=== PATIENT | female | born 1980 | race Caucasian/White ===

== ENCOUNTER → 2020-08-25 08:16 | Outpatient (BNVA) | payer MEDICARE, MEDICAID, SELFPAY | PROVIDERS: PCP Nurse Practitioner Family; Visit Provider Dietitian, Registered | DX: Z76.89 Persons encountering health services in other specified circumstances (principal) ==

== ENCOUNTER → 2020-09-22 13:43 | Outpatient (BNVA) | payer MEDICARE, MEDICAID, SELFPAY | PROVIDERS: PCP Nurse Practitioner Family; Visit Provider Dietitian, Registered | DX: Z76.89 Persons encountering health services in other specified circumstances (principal) ==

== ENCOUNTER → 2020-09-29 08:38 | Outpatient (BNVA) | payer MEDICARE, MEDICAID, SELFPAY | PROVIDERS: PCP Nurse Practitioner Family; Referring Provider Nurse Practitioner Family; Visit Provider Dietitian, Registered | DX: Z76.89 Persons encountering health services in other specified circumstances (principal) ==

== ENCOUNTER → 2020-12-24 10:35 | Outpatient (BNVA) | payer MEDICARE, MEDICAID, SELFPAY | PROVIDERS: PCP Nurse Practitioner Family; Visit Provider Surgery | DX: E66.9 Obesity, unspecified (principal); Z68.30 Body mass index [BMI] 30.0-30.9, adult; K91.2 Postsurgical malabsorption, not elsewhere classified; Z90.3 Acquired absence of stomach [part of] | CPT/HCPCS: 99212 ==

== ENCOUNTER → 2021-01-21 09:59 | Outpatient (BNVA) | payer MEDICARE, MEDICAID, SELFPAY | PROVIDERS: PCP Nurse Practitioner Family; Visit Provider Dietitian, Registered ==

== ENCOUNTER 2021-02-22 10:00 | Outpatient (REF) | payer MEDICARE, MEDICAID, SELFPAY ==
[2021-02-22 11:23] LABS: MANUAL DIFF FLAG NO
[2021-02-22 11:33] LABS: Basophils Percent Auto 0.3 % (0-2); Eosinophils Absolute Auto 0.2 X10*3/uL (0.0-0.4); Eosinophils Percent Auto 1.6 % (0-4); Hematocrit 33.3 % (37-47); Imm Gran Abs Auto 0.04 X10*3/uL (0.00-0.03); Imm Gran Pct Auto 0.4 % (0.0-0.4); Lymphocytes Absolute Auto 2.2 X10*3/uL (1.2-4.9); Lymphocytes Percent Auto 23.1 % (20-40); Mean Corpuscular Hemoglobin 28.6 pg (27.0-33.0); Mean Corpuscular Volume 86.7 fL (80-98); Mean Platelet Volume 9.4 fL (9.4-12.3); Monocytes Absolute Auto 0.4 X10*3/uL (0.1-1.2); Monocytes Percent Auto 4.3 % (2-11); Neutrophils Absolute Auto 6.7 X10*3/uL (2.0-8.3); Neutrophils Percent Auto 70.3 % (45-73); Platelet Count 243 X10*3/uL (160-400); Red Blood Count 3.84 X10*6/uL (4.20-5.50); Red Cell Distribution Width 12.7 % (11.0-16.0); White Blood Count 9.6 X10*3/uL (4.8-10.8)
[2021-02-22 12:16] LABS: Alanine Aminotransferase 9 U/L (0-31); Alkaline Phosphatase 72 U/L (39-117); Anion Gap 15 (12-20); Aspartate Amino Transferase 10 U/L (5-31); Bilirubin Total 0.6 mg/dL (0.0-1.0); Blood Urea Nitrogen 36 mg/dL (9-16); Calcium 8.8 mg/dL (8.4-10.2); Carbon Dioxide 22 mmol/L (22-29); Chloride 110 mmol/L (96-108); Cholesterol 185 mg/dL; Estimated Glomerular Filt Rate 32; Glucose Fasting 107 mg/dL (60-99); HDL Cholesterol 56 mg/dL; Iron 57 mcg/dL (30-160); LDL Cholesterol Calculated 109 mg/dl; Percent Iron Saturation 23 % (15-50); Sodium 142 mmol/L (135-145); Total Iron Binding Capacity 244 mcg/dL (228-428); Total Protein 7.1 g/dL (6.5-8.0); Triglycerides 100 mg/dL; Unsaturated Iron Binding 187 ug/dL
[2021-02-22 12:19] LABS: Thyroid Stimulating Hormone 0.53 uIU/mL (0.32-4.0); Vitamin D 25-OH Total 19.2 ng/mL (>30)
[2021-02-22 12:21] LABS: Vitamin B12 383 pg/mL (200-900)
[2021-02-23 12:56] LABS: PTHI 210 pg/mL (14-64)
[2021-02-25 13:22] LABS: Vitamin B1 9 nmol/L (8-30)
[2021-02-25 16:12] LABS: Zinc 54 mcg/dL (60-130)
[2021-02-26 19:26] LABS: Vitamin A 69 mcg/dL (38-98)
== END 2021-02-22 10:01 | disposition home or self-care (01) ==
LOC: HO.LAB 10:00
PROVIDERS: PCP Nurse Practitioner Family; Visit Provider Surgery
DX: Z01.818 Encounter for other preprocedural examination (principal); K91.2 Postsurgical malabsorption, not elsewhere classified; E11.42 Type 2 diabetes mellitus with diabetic polyneuropathy; E11.43 Type 2 diabetes mellitus with diabetic autonomic (poly)neuropathy; K31.84 Gastroparesis; E55.9 Vitamin D deficiency, unspecified; Z68.32 Body mass index [BMI] 32.0-32.9, adult; Z90.3 Acquired absence of stomach [part of]; Z88.1 Allergy status to other antibiotic agents; Z88.8 Allergy status to other drugs, medicaments and biological substances; Z79.899 Other long term (current) drug therapy
CPT/HCPCS: 36415; 80053; 80061; 82306; 82607; 83540; 83970; 84425; 84443; 84590; 84630; 85025; 99212

== ENCOUNTER → 2021-04-05 10:38 | Outpatient (BNVA) | payer MEDICARE, MEDICAID, SELFPAY | PROVIDERS: PCP Nurse Practitioner Family; Visit Provider Surgery | DX: E66.9 Obesity, unspecified (principal); Z68.31 Body mass index [BMI] 31.0-31.9, adult | CPT/HCPCS: 99212 ==

== ENCOUNTER 2021-04-12 06:39 | Day surgery (SDC) | payer MEDICARE, MEDICAID, SELFPAY ==
--- NOTE | 2021-04-11 08:40 | P.CONAN_ITS ---
Documented by User: Maryam Paulino 04/11/21 08:49 HPI - Anesthesia Eval Consult details Narrative: 41yo F for Upper Endoscopy Chronic opioids s/p gastric sleeve 12/2019 (per renal 2020, baseline creat 2.3) PMFSH Active Problems Active Problems: All Active Problems (Updated 04/05/21 @ 11:56 by Sheba Ruiz MD) Obesity (Acute) BMI 31.0-31.9,adult (Acute) GERD (gastroesophageal reflux disease) (Acute) Zinc deficiency (Acute) Vitamin D deficiency (Acute) BMI 32.0-32.9,adult (Acute) Intestinal malabsorption following gastrectomy (Acute) Obesity (Acute) History of sleeve gastrectomy (Acute) BMI 30.0-30.9,adult (Acute) Past Medical History Medical History Anemia Arthritis Bilateral cataracts Chronic pain CKD (chronic kidney disease) Degenerative joint disease of low back Diabetic polyneuropathy Fibromyalgia Gastroparesis HTN (hypertension) Hyperlipidemia Hypothyroidism IBS (irritable bowel syndrome) Intestinal malabsorption following gastrectomy Migraine headache Nephritis Renal insufficiency Trigeminal neuralgia Type 2 diabetes mellitus Family History Family History Father No problems noted. Mother COPD (chronic obstructive pulmonary disease) Heart disease Maternal Grandmother Heart disease Sister No problems noted. Surgical History Surgical History History of eye surgery History of intestinal surgery History of laparoscopic cholecystectomy History of sleeve gastrectomy History of vascular surgery Social History Social History Alcohol intake: never Patient Tobacco Use Status: Never used Tobacco Advance Directives: No Advance Directives Information Provided: Yes Meds Allergies Allergy/AdvReac Type Severity Reaction Status Date / Time amoxicillin [AMOXICILLIN] Allergy Unknown RASH Unverified 04/05/21 11:50 rivaroxaban [From XARELTO] Allergy Unknown RASH Unverified 04/05/21 11:50 Amoxicillin Allergy Unknown rash Uncoded 04/05/21 11:50 Xarelto Allergy Unknown rash Uncoded 04/05/21 11:50 Home Medications Medication Instructions Recorded Confirmed Last Taken Type blood sugar diagnostic #10 ea 12/24/20 04/05/21 Unknown History blood-glucose meter #1 ea 12/24/20 04/05/21 Unknown History carvedilol 6.25 mg tablet 6.25 mg PO BID 12/24/20 04/05/21 Unknown History cyclobenzaprine 10 mg tablet 10 mg PO BEDTIME 12/24/20 04/05/21 Unknown History dulaglutide 1.5 mg/0.5 mL 3 mg SUBCUT QWEEK 12/24/20 04/05/21 Unknown History subcutaneous pen injector ergocalciferol (vitamin D2) 1,250 50,000 unit PO QWEEK cap 12/24/20 04/05/21 Unknown History mcg (50,000 unit) capsule gabapentin 800 mg tablet 2,400 mg PO BEDTIME 12/24/20 04/05/21 Unknown History lancets 28 gauge #100 ea 12/24/20 04/05/21 Unknown History levothyroxine 125 mcg tablet 125 mcg PO DAILY 12/24/20 04/05/21 Unknown History morphine 30 mg tablet,extended 30 mg PO TID 12/24/20 04/05/21 Unknown History release oxycodone 15 mg tablet 15 mg PO TID 12/24/20 04/05/21 Unknown History pantoprazole 40 mg tablet,delayed 40 mg PO BID tab 12/24/20 04/05/21 Unknown History release sucralfate 1 gram tablet 1 g PO BEDTIME 12/24/20 04/05/21 Unknown History suvorexant 10 mg tablet 10 mg PO .qhs tab 12/24/20 04/05/21 Unknown History Exam Exam Date and Time: April 11, 2021 0840 Pertinent Lab Results Pertinent Lab Results: Laboratory Tests 02/22/21 02/22/21 10:55 10:55 WBC 9.6 Hgb 11.0 L Hct 33.3 L Plt Count 243 Sodium 142 Potassium 5.0 Chloride 110 H Carbon Dioxide 22 BUN 36 H Creatinine 1.76 H Assessment and Plan Assessment Anesthesia Assessment: Chart Reviewed Documented by User: Cas Vila 04/12/21 07:15 [facility] Past Medical History Medical History Anemia Arthritis Bilateral cataracts Chronic pain CKD (chronic kidney disease) Degenerative joint disease of low back Diabetic polyneuropathy Fibromyalgia Gastroparesis HTN (hypertension) Hyperlipidemia Hypothyroidism IBS (irritable bowel syndrome) Intestinal malabsorption following gastrectomy Migraine headache Nephritis Renal insufficiency Trigeminal neuralgia Type 2 diabetes mellitus Family History Family History Father No problems noted. Mother COPD (chronic obstructive pulmonary disease) Heart disease Maternal Grandmother Heart disease Sister No problems noted. Surgical History Surgical History History of eye surgery History of intestinal surgery History of laparoscopic cholecystectomy History of sleeve gastrectomy History of vascular surgery Social History Social History Alcohol intake: never Patient Tobacco Use Status: Never used Tobacco Advance Directives: No Advance Directives Information Provided: Yes Meds Allergies Allergy/AdvReac Type Severity Reaction Status Date / Time amoxicillin [AMOXICILLIN] Allergy Unknown RASH Unverified 04/05/21 11:50 rivaroxaban [From XARELTO] Allergy Unknown RASH Unverified 04/05/21 11:50 Amoxicillin Allergy Unknown rash Uncoded 04/05/21 11:50 Xarelto Allergy Unknown rash Uncoded 04/05/21 11:50 Home Medications Medication Instructions Recorded Confirmed Last Taken Type blood sugar diagnostic #10 ea 12/24/20 04/05/21 Unknown History blood-glucose meter #1 ea 12/24/20 04/05/21 Unknown History carvedilol 6.25 mg tablet 6.25 mg PO BID 12/24/20 04/05/21 Unknown History cyclobenzaprine 10 mg tablet 10 mg PO BEDTIME 12/24/20 04/05/21 Unknown History dulaglutide 1.5 mg/0.5 mL 3 mg SUBCUT QWEEK 12/24/20 04/05/21 Unknown History subcutaneous pen injector ergocalciferol (vitamin D2) 1,250 50,000 unit PO QWEEK cap 12/24/20 04/05/21 Unknown History mcg (50,000 unit) capsule gabapentin 800 mg tablet 2,400 mg PO BEDTIME 12/24/20 04/05/21 Unknown History lancets 28 gauge #100 ea 12/24/20 04/05/21 Unknown History levothyroxine 125 mcg tablet 125 mcg PO DAILY 12/24/20 04/05/21 Unknown History morphine 30 mg tablet,extended 30 mg PO TID 12/24/20 04/05/21 Unknown History release oxycodone 15 mg tablet 15 mg PO TID 12/24/20 04/05/21 Unknown History pantoprazole 40 mg tablet,delayed 40 mg PO BID tab 12/24/20 04/05/21 Unknown History release sucralfate 1 gram tablet 1 g PO BEDTIME 12/24/20 04/05/21 Unknown History suvorexant 10 mg tablet 10 mg PO .qhs tab 12/24/20 04/05/21 Unknown History Exam Airway Mallampati Class: II TM Dist: >3cm Neck ROM: Full Loose/Missing/Broken Teeth: Yes (Poor dentition many missing upper and lower) Heart: [id number] Lungs: cta b/l Assessment and Plan Assessment Anesthesia Assessment: Anesthesia Plan Discussed, PAT Visit and Chart Reviewed Final Anesthetic Review NPO: Yes ASA Class: III Final Preanesthetic Review: No Changes in Pt Med Stat, Meds/Allgs Chart Reviewed, Consent Obtained/Reviewed and Anes Risks/Benef Reviewed Patient Risk: Low Procedure Risk: Low Assessment/Block/Sedation in SS: Assess/Block/Sedation-SS Anesthetic Plan Anesthetic Plan: MAC: and Agree w/ Assess. and Plan Disposition: Standard PACU
[2021-04-12 07:15] VITALS: BMI 31.8
[2021-04-12 07:16] VITALS: BP 169/92; PULSE 100; RESP 16; TEMP 36.3; O2SAT 99
[2021-04-12 07:22] LABS: UPreg QC Valid YES; Urine Pregnancy NEGATIVE (NEGATIVE)
[2021-04-12] MEDS: Lactated Ringers 1,000 ML 50 ML IVCONT (07:29)
[2021-04-12 07:32] LABS: Glucose, Whole Blood 84 mg/dL (60-115)
--- NOTE | 2021-04-12 07:40 | MHC.SHP ---
Pre-Procedural Eval Section B Chief Complaint: GERD Allergies: Allergies Allergy/AdvReac Type Severity Reaction Status Date / Time amoxicillin [AMOXICILLIN] Allergy Unknown RASH Verified 04/12/21 07:21 rivaroxaban [From XARELTO] Allergy Unknown RASH Verified 04/12/21 07:21 Amoxicillin Allergy Unknown rash Uncoded 04/05/21 11:50 Xarelto Allergy Unknown rash Uncoded 04/05/21 11:50 Plan I have reviewed the history and physical and performed a pertinent physical examination on my patient. No changes have occurred unless specified.
[2021-04-12 07:48] LABS: COVID-19 Test Negative (Negative)
--- NOTE | 2021-04-12 07:55 | PC.NURSE ---
Patient arrived at [facility] with black fit bit watch and silver butterfly bracelet. Labeled cup offered but patient declined. Jewelry placed in clear belongings bag with the rest of her belongings.
[2021-04-12 08:06] VITALS: BP 132/79; PULSE 96; RESP 12; TEMP 36.4; O2SAT 100
--- NOTE | 2021-04-12 08:17 | P.BOP_ITS ---
Brief Operative Note Date of Service: 04/12/21 Pre-op diagnosis: Poor weight loss after sleeve gastrectomy, severe gastroesophageal reflux disease Post-op diagnosis: other (Gastroparesis, bile reflux, antral gastritis normal appearance of the gastric sleeve without abnormality) Procedure: Esophagogastroduodenoscopy, antral biopsy x2 Implants: None Surgeon: Sheba Ruiz MD Anesthesia: MAC Was an Supplier Quality Specialist used for this Procedure?: No Estimated blood loss (mL): 0 Pathology: other (Antral biopsy x2) Condition: stable Disposition: PACU
[2021-04-12 08:22] VITALS: BP 144/89; PULSE 103; RESP 18; TEMP 36.4; O2SAT 100
--- NOTE | 2021-04-12 19:46 | OP_ITS ---
SURGEON: Sheba Ruiz MD PREOPERATIVE DIAGNOSIS: Poor weight loss after gastric sleeve and severe gastroesophageal reflux disease. POSTOPERATIVE DIAGNOSIS: Gastroparesis, bile reflux, and antral gastritis. PROCEDURE PERFORMED: Esophagogastroduodenoscopy and antral biopsy x2. ESTIMATED BLOOD LOSS: COMPLICATIONS: None. ANESTHESIA: Total intravenous anesthesia with propofol given by the nurse speech language therapist. ASSISTANTS: None. SPECIMENS: Antral biopsy x2. DESCRIPTION OF PROCEDURE: The patient was brought into the operating room on a stretcher and placed in the left lateral decubitus position. A safety time-out was performed. A bite block was placed between the teeth. Total intravenous anesthesia was administered using propofol by the nurse speech language therapist. Once the patient was adequately sedated, the gastroscope was placed into posterior oropharynx, passed down the esophagus, evaluating the esophageal mucosa. The esophageal mucosa was normal. GE junction was located at 36 cm from the incisors. There was no evidence of hiatal hernia. Gastroscope was passed into the gastric pouch. The gastric pouch was normal in size for its age. There was no evidence of torsion or stenosis or ballooning of the antrum. The gastric sleeve was the same size all the way down and was [id number] for its age. There was a significant amount of undigested food that we encountered almost immediately once entering the stomach, which showed the patient had gastroparesis likely related to her diabetes. There was bile reflux in the distal stomach, and there was some erythema and granularity of the antrum which were biopsied x2. The rest of the sleeve appeared to be normal. The gastroscope was passed to the pylorus region through the pylorus down to the third portion of duodenum, all of which was normal. All of these portions of the upper endoscopy were documented using photo documentation. There were no complications. The gastroscope was retracted back into the stomach. Stomach was desufflated and the gastroscope was removed without difficulty. The patient tolerated the procedure well and was sent to recovery room in stable condition. FINDINGS: A GE junction located at 36 cm from the incisors. There was no evidence of hiatal hernia. There was antral gastritis, which was biopsied x2. There was also bile reflux located in the antrum. There was a significant amount of undigested food within the stomach. Sheba Ruiz MD /MODL / [id number]
== END 2021-04-12 09:13 | disposition home or self-care (01) ==
PROVIDERS: Nurse Practitioner; PCP Nurse Practitioner Family; Visit Provider Surgery
PROC: 0DJ08ZZ Inspection of Upper Intestinal Tract, Via Natural or Artificial Opening Endoscopic (ICD-10-PCS; CPT 43235; principal; 2021-04-12 07:30)
DX: K21.9 Gastro-esophageal reflux disease without esophagitis (principal); K29.50 Unspecified chronic gastritis without bleeding; K31.84 Gastroparesis; E11.22 Type 2 diabetes mellitus with diabetic chronic kidney disease; E11.42 Type 2 diabetes mellitus with diabetic polyneuropathy; I12.9 Hypertensive chronic kidney disease with stage 1 through stage 4 chronic kidney disease, or unspecified chronic kidney disease; N18.9 Chronic kidney disease, unspecified; Z20.822 Contact with and (suspected) exposure to COVID-19; Z98.84 Bariatric surgery status; Z79.899 Other long term (current) drug therapy; Z90.49 Acquired absence of other specified parts of digestive tract; Z88.0 Allergy status to penicillin; Z88.8 Allergy status to other drugs, medicaments and biological substances
CPT/HCPCS: 43239; 36415; 81025; 82947; 87635; 88305; 88342; J1200

== ENCOUNTER → 2021-05-03 15:33 | Outpatient (BNVA) | payer MEDICARE, MEDICAID, SELFPAY | PROVIDERS: PCP Nurse Practitioner Family; Visit Provider Surgery | DX: E11.65 Type 2 diabetes mellitus with hyperglycemia (principal); E11.43 Type 2 diabetes mellitus with diabetic autonomic (poly)neuropathy; K31.84 Gastroparesis; E11.22 Type 2 diabetes mellitus with diabetic chronic kidney disease; E11.42 Type 2 diabetes mellitus with diabetic polyneuropathy; I12.9 Hypertensive chronic kidney disease with stage 1 through stage 4 chronic kidney disease, or unspecified chronic kidney disease; N18.9 Chronic kidney disease, unspecified; E78.5 Hyperlipidemia, unspecified; K21.9 Gastro-esophageal reflux disease without esophagitis; G50.0 Trigeminal neuralgia; K90.9 Intestinal malabsorption, unspecified; Z68.33 Body mass index [BMI] 33.0-33.9, adult; Z90.3 Acquired absence of stomach [part of] | CPT/HCPCS: 99212 ==

== ENCOUNTER → 2021-06-16 14:32 | Outpatient (BNVA) | payer MEDICARE, MEDICAID, SELFPAY | PROVIDERS: PCP Nurse Practitioner Family; Visit Provider Surgery | DX: E66.9 Obesity, unspecified (principal); Z68.32 Body mass index [BMI] 32.0-32.9, adult | CPT/HCPCS: 99212 ==

== ENCOUNTER → 2021-07-22 10:58 | Outpatient (BNVA) | payer MEDICARE, MEDICAID, SELFPAY | PROVIDERS: PCP Nurse Practitioner Family; Visit Provider Surgery | DX: E66.9 Obesity, unspecified (principal); Z68.32 Body mass index [BMI] 32.0-32.9, adult | CPT/HCPCS: 99212 ==

== ENCOUNTER → 2021-08-12 09:38 | Outpatient (BNVA) | payer MEDICARE, MEDICAID, SELFPAY | PROVIDERS: PCP Nurse Practitioner Family; Visit Provider Surgery | DX: E66.9 Obesity, unspecified (principal); Z68.32 Body mass index [BMI] 32.0-32.9, adult | CPT/HCPCS: 99212 ==

== ENCOUNTER → 2021-08-31 10:05 | Outpatient (BNVA) | payer MEDICARE, MEDICAID, SELFPAY | PROVIDERS: PCP Nurse Practitioner Family; Visit Provider Physician Assistant Surgical | DX: E66.9 Obesity, unspecified (principal); E21.1 Secondary hyperparathyroidism, not elsewhere classified | CPT/HCPCS: 99212 ==

== ENCOUNTER 2023-07-10 09:26 | Outpatient (REF) | payer MEDICARE, MEDICAID, SELFPAY ==
[2023-07-10 10:58] LABS: MANUAL DIFF FLAG NO
[2023-07-10 11:02] LABS: Basophils Percent Auto 0.5 % (0-2); Eosinophils Absolute Auto 0.2 X10*3/uL (0.0-0.4); Eosinophils Percent Auto 2.3 % (0-4); Hemoglobin 9.6 g/dl (12.0-16.0); Imm Gran Abs Auto 0.03 X10*3/uL (0.00-0.03); Imm Gran Pct Auto 0.4 % (0.0-0.4); Lymphocytes Absolute Auto 2.3 X10*3/uL (1.2-4.9); Lymphocytes Percent Auto 27.7 % (20-40); Mean Corpuscular Volume 84.5 fL (80.0-98.0); Mean Platelet Volume 9.7 fL (9.4-12.3); Monocytes Absolute Auto 0.5 X10*3/uL (0.1-1.2); Monocytes Percent Auto 6.5 % (2-11); Neutrophils Absolute Auto 5.3 x10*3/uL (2.0-8.3); Neutrophils Percent Auto 62.6 % (45-73); Platelet Count 230 X10*3/uL (160-400); Red Blood Count 3.55 X10*6/uL (4.20-5.50); Red Cell Distribution Width 13.1 % (11.0-16.0); White Blood Count 8.4 X10*3/uL (4.8-10.8)
[2023-07-10 11:34] LABS: Albumin Level 3.5 g/dL (3.5-5.0); Anion Gap 12 (12-20); Blood Urea Nitrogen 29 mg/dL (9-16); Calcium 9.4 mg/dL (8.4-10.2); Carbon Dioxide 25 mmol/L (22-29); Chloride 110 mmol/L (96-108); Estimated Glomerular Filt Rate 22; Phosphorus 3.7 mg/dL (2.7-4.5); Potassium 4.9 mmol/L (3.3-5.1); Sodium 142 mmol/L (135-145)
[2023-07-10 13:50] LABS: Appearance Urine Turbid; Color Urine Yellow; Glucose Urine UA Negative (Negative); Leukocyte Esterase Urine Large (3+) (Negative); Nitrite Urine Negative (Negative); PH 5.5 (5.0-9.0); Specific Gravity - Urine 1.015 (1.005-1.025); UMIC TRIGGER UACC YES; Urine Blood Moderate (2+) (Negative); Urine Ketones Negative (Negative); Urine Protein 300 (3+) mg/dL (Neg-Trace)
[2023-07-10 14:05] LABS: Bacteria Urine 4+ (None Seen); Squamous Epithelial Cell Urine 0-2 /HPF (0-2); UACC Culture Trigger YES; WBC Clumps Urine Present; WBC Urine >50 /HPF (0-5)
[2023-07-10 14:34] LABS: Creatinine Urine 81.91 mg/dL
[2023-07-10 16:17] LABS: Microalbum/Creatinine Ratio Ur 2441.7 ug/mg cr (<30); Microalbumin Urine > 2000.0 mg/L
[2023-07-10 21:57] LABS: Protein/Creatinine Ratio, Ur 3.54 (<0.2); Total Protein Urine Random 290 mg/dL (<12)
[2023-07-11 15:23] LABS: PTHI 95 pg/mL (16-77)
== END 2023-07-10 09:27 | disposition home or self-care (01) ==
LOC: HO.10HDL 09:26
PROVIDERS: Visit Provider Internal Medicine Nephrology
DX: E11.29 Type 2 diabetes mellitus with other diabetic kidney complication (principal); E11.22 Type 2 diabetes mellitus with diabetic chronic kidney disease; N25.0 Renal osteodystrophy; E11.21 Type 2 diabetes mellitus with diabetic nephropathy; N18.32 Chronic kidney disease, stage 3b; R82.90 Unspecified abnormal findings in urine
CPT/HCPCS: 36415; 80051; 81001; 82040; 82043; 82306; 82310; 82565; 82570; 83735; 83970; 84100; 84156; 84520; 85025; 87086; 87088; 87186

== ENCOUNTER 2023-08-31 00:11 | Emergency (ER) | payer MEDICARE, MEDICAID, SELFPAY ==
--- NOTE | ~2023-08-31 | XR_ITS ---
EXAMINATION: XR RIBS, RIGHT CLINICAL INFORMATION: Fall COMPARISON: None available. TECHNIQUE: 3 views of the right ribs were obtained. FINDINGS: No displaced rib fracture is seen. The lungs are clear with no focal consolidation. No evidence of pneumothorax, pulmonary edema, or pleural effusions. The cardiomediastinal contour is unremarkable. XR/XR ribs RT min 3V w CXR1V IMPRESSION: No acute findings identified.
--- NOTE | ~2023-08-31 | XR_ITS ---
EXAMINATION: XR KNEE, RIGHT CLINICAL INFORMATION: Fall COMPARISON: None available. TECHNIQUE: Four views of the right knee. FINDINGS: Osseous alignment is anatomic. There is mild tricompartmental joint space narrowing and osteophytosis. No acute fracture is seen. No significant knee effusion. XR/XR knee RT 3V IMPRESSION: No acute findings. Mild degenerative changes.
[2023-08-31 00:25] VITALS: BP 158/90; PULSE 92; RESP 16; TEMP 36.4; O2SAT 100; BMI 27.5
--- NOTE | 2023-08-31 00:32 | ED_ITS ---
HPI - Fall General Chief Complaint: Fall Stated Complaint: fall Time Seen by Provider: 08/31/23 00:32 Source: patient Mode of arrival: ambulatory Limitations: no limitations History of Present Illness HPI Narrative: Patient with chronic pain on morphine apparently was walking in the parking lot of [employer] around 16:00 tripped on uneven ground and fell forward complaining of pain in the right ribs hit the head to the ground with small bruise over the left eyebrow no loss of consciousness no seizures patient did her chores and came now for evaluate complaining of pain in the right ribs right knee no shortness of breath Related Data Home Medications Medication Instructions Recorded Confirmed blood sugar diagnostic #10 ea 12/24/20 08/31/21 blood-glucose meter #1 ea 12/24/20 08/31/21 cyclobenzaprine 10 mg tablet 10 mg PO BEDTIME 12/24/20 08/31/21 dulaglutide 1.5 mg/0.5 mL 3 mg subcut QWEEK 12/24/20 08/31/21 subcutaneous pen injector ergocalciferol (vitamin D2) 1,250 50,000 unit PO QWEEK 12/24/20 08/31/21 mcg (50,000 unit) capsule gabapentin 800 mg tablet 2,400 mg PO BEDTIME 12/24/20 08/31/21 lancets 28 gauge #100 ea 12/24/20 08/31/21 levothyroxine 125 mcg tablet 125 mcg PO DAILY 12/24/20 08/31/21 morphine 30 mg tablet,extended 30 mg PO TID chronic pain 12/24/20 08/31/21 release oxycodone 15 mg tablet 15 mg PO TID 12/24/20 08/31/21 labetalol 200 mg tablet 200 mg PO BID 06/16/21 08/31/21 calcium citrate 1,000 mg tablet 1,000 mg PO DAILY 07/22/21 08/31/21 [id number] 45 mg-folic 1 cap PO DAILY 07/22/21 08/31/21 acid 800 mcg-vit K 120 mcg capsule (Bariatric Multivitamins) pantoprazole 40 mg tablet,delayed 40 mg PO DAILY 07/22/21 08/31/21 release Allergies Allergy/AdvReac Type Severity Reaction Status Date / Time amoxicillin [AMOXICILLIN] Allergy Unknown RASH Verified 08/31/21 10:13 rivaroxaban [From XARELTO] Allergy Unknown RASH Verified 08/31/21 10:13 Amoxicillin Allergy Unknown rash Uncoded 08/31/21 10:13 Xarelto Allergy Unknown rash Uncoded 08/31/21 10:13 Review of Systems Review of Systems: Yes all other systems are reviewed and are negative [facility] Past Medical History Medical History CKD (chronic kidney disease) Intestinal malabsorption following gastrectomy Gastroparesis IBS (irritable bowel syndrome) Bilateral cataracts Arthritis Degenerative joint disease of low back Fibromyalgia Nephritis Migraine headache Trigeminal neuralgia HTN (hypertension) Chronic pain Anemia Hyperlipidemia Diabetic polyneuropathy Renal insufficiency Type 2 diabetes mellitus Hypothyroidism Surgical History History of intestinal surgery History of vascular surgery History of laparoscopic cholecystectomy History of eye surgery History of sleeve gastrectomy Family History Family History Father No problems noted. Mother COPD (chronic obstructive pulmonary disease) Heart disease Maternal Grandmother Heart disease Sister No problems noted. Social History Social History Alcohol intake: never Patient Tobacco Use Status: Never used Tobacco Smoked in Last 30 Days: No Use of substances other than those prescribed or required for medical reasons: No Advance Directives: No Advance Directives Information Provided: No Patient : No Physical Exam Vital Signs: Vital Signs: Last Vital Signs Temp 97.6 F 08/31/23 00:25 Pulse 92 08/31/23 00:25 Resp 16 08/31/23 00:25 BP 158/90 H 08/31/23 00:25 Pulse Ox 100 08/31/23 00:25 O2 Del Method Room Air 08/31/23 00:25 BMI result Body Mass Index 27.5 Appearance: Alert. Oriented X3. No acute distress. Eyes: PERRLA, HEENT: Pharynx normal. Oral Mucosa moist is small ecchymosis left forehead Neck: Normal inspection. Neck supple. No midline tenderness CVS: Normal heart rate and rhythm. Pulses normal. Respiratory: No respiratory distress. Equal air entry bilateral, no wheezing/rales/rhonchi slight tenderness right mid axillary area without any crepitation or bruise Abdomen: Soft and nontender. Bowel sounds are present, no mass palpable, no CVA tenderness Skin: Skin warm and dry. Normal skin color. Normal skin turgor. Extremities: No lower extremity edema. No calf tenderness slight bruise on the right kneecap good range of movement Neuro: Oriented X 3. No motor deficit. No sensory deficit.No cerebellar signs , cranial nerves II-XII intact Medical Decision Making Medical Decision Making MDM Narrative: Patient clinically with status post minor fall with no loss of consciousness unlikely significant intracranial injury no need for CT scan of the head. Also has slight tenderness right ribs without any crepitation focal tenderness likely muscular pain will do the x-ray of the ribs and the right knee 0100 x-ray negative for fracture discharge patient home for rib contusion and right knee contusion with minor head injury Differential Diagnosis Differential Diagnoses: The differential diagnosis associated with the presentation includes Rib contusion/rib fracture/knee fracture/head injury Discharge Plan Discharge Clinical Impression: Minor closed head injury Patient Disposition: Home, Self-Care Instructions: Head Injury (ED), Rib Contusion (ED) Additional Instructions: Care and cautions as advised Apply ice pack Tylenol/Motrin for pain Continue your pain medication Prescriptions: No Action oxycodone 15 mg tablet 15 mg PO TID morphine 30 mg tablet extended release 30 mg PO TID gabapentin 800 mg tablet 2,400 mg PO BEDTIME cyclobenzaprine 10 mg tablet 10 mg PO BEDTIME levothyroxine 125 mcg tablet 125 mcg PO DAILY Trulicity 1.5 mg/0.5 mL pen injector 3 mg subcut QWEEK (DME) lancets 28 gauge misc See Rx Instructions topical DAILY Qty: 100 Rx Instructions: As directed (DME) blood-glucose meter Kit See Rx Instructions .ROUTE DIRECTED Qty: 1 Rx Instructions: As directed (DME) FreeStyle Lite Strips Strip See Rx Instructions Not Applicable .MEDSUPPLY Qty: 10 Rx Instructions: As directed ergocalciferol (vitamin D2) 1,250 mcg (50,000 unit) capsule 50,000 unit PO QWEEK pantoprazole 40 mg tablet,delayed release (DR/EC) 40 mg PO DAILY labetalol 200 mg tablet 200 mg PO BID Bariatric Multivitamins 45 mg iron- 800 mcg-120 mcg capsule 1 cap PO DAILY calcium citrate 1,000 mg tablet 1,000 mg PO DAILY
--- OUTSIDE RECORDS SUMMARY | 2023-08-31 00:35 | XMS_ITS | Continuity of Care Document ---
Author Name Unknown Organization [facility] ter Address [address] [place] [id number]- Care Team Providers Care Proration Clerk Name Role Phone Sathish RIVERA, Emma Primary Care Physician ( [phone] Encounter [facility] Date(s): 12/23/21 - 12/23/[address] [id number] Discharge Disposition: A-D/C Home Attending Physician: Troy Christianson DDS, MD Admitting Physician: Troy Christianson DDS, MD Referring Physician: Troy Christianson DDS, MD Allergies, Adverse Reactions, Alerts Substance Reaction Severity Status Toradol Active Amoxil rash Active Tape tegaderm-rash Active Xarelto rash Active Medications biotin 1000 mcg oral tablet 1 tablet = 1,000 mcg, By Mouth, Daily, # 30 tablet, 0 Refills, Maintenance, 12/19/18 20:17:12 EST, Tablet Start Date: 12/19/18 Status: Ordered chlorhexidine topical 0.12% liquid 15 mL = 0.018 Gm, Swish and Spit, 3 times a day after meals and bedtime, # 420 mL, 1 Refills, Maintenance, 12/23/21 9:25:00 EST, Oral Rinse, [id number], Partial fill upon patient request if the prescription is for a schedule II opioid drug., 1... Start Date: 12/23/21 Stop Date: 01/06/22 Status: Ordered clindamycin 300 mg oral capsule 1 capsule = 300 mg, By Mouth, Every 6 hours, for 5 days, # 20 capsule, 0 Refills, Acute 12/28/21 9:25:00 EST, 12/23/21 9:25:00 EST, Capsule, [id number], Partial fill upon patient request if the prescription is for a schedule II opioid drug., 1... Start Date: 12/23/21 Stop Date: 12/28/21 Status: Ordered cyclobenzaprine 10 mg oral tablet TAKE 1 TABLET BY MOUTH DAILY AT BEDTIME Start Date: 12/19/18 Status: Ordered Depo-Provera = 300 mg, Intramuscular, every 3 months, 0 Refills, Maintenance, 05/07/13 15:08:35 EDT Start Date: 05/07/13 Status: Ordered folic acid 1 mg oral tablet 1 mg, 1, tablet, By Mouth, Daily at bedtime, Refills 0, Maintenance, 12/12/21 9:12:00 EST, Partial fill upon patient request if the prescription is for a schedule II opioid drug. Start Date: 12/12/21 Status: Ordered gabapentin 800 mg oral tablet 3 tablet = 2,400 mg, By Mouth, Daily at bedtime, 0 Refills, Maintenance, 05/07/13 15:07:46 EDT Start Date: 05/07/13 Status: Ordered labetalol 200 mg oral tablet 1 tablet = 200 mg, By Mouth, 2 times a day, 0 Refills, Maintenance, 12/12/21 9:11:00 EST, Partial fill upon patient request if the prescription is for a schedule II opioid drug. Start Date: 12/12/21 Status: Ordered levothyroxine 112 mcg (0.112 mg) oral capsule 1 capsule = 112 mcg, By Mouth, Daily, 0 Refills, Maintenance, 12/12/21 9:12:00 EST, Partial fill upon patient request if the prescription is for a schedule II opioid drug. Start Date: 12/12/21 Status: Ordered MS Contin Tablet 30 mg, By Mouth, Every 8 hours, Refills 0, Tot. Refills 0, Maintenance, 12/12/21 9:13:00 EST, Partial fill upon patient request if the prescription is for a schedule II opioid drug. Start Date: 12/12/21 Status: Ordered Narcan 4 mg/0.1 mL nasal spray See Instructions, never needed to use med, 0 Refills, Maintenance, 12/19/18 18:31:08 EST Start Date: 12/19/18 Status: Ordered Orthotics See Instructions, # 1 pair, Refills 3, Tot. Refills 3, Maintenance, diabetic shoes with custom inserts, 01/13/19 12:33:16 EDT, Compound Start Date: 01/13/19 Status: Ordered oxyCODONE 15 mg oral tablet TK 1 T PO TID Start Date: 12/19/18 Status: Ordered OxyCODONE IR Tablet 5 mg, Tablet, By Mouth, Every 4 hours, in PACU ONLY, if patient can tolerate PO, PRN for Pain , Mild, Routine, 12/23/21 9:38:00 EST Start Date: 12/23/21 Stop Date: 12/23/21 Status: Discontinued pantoprazole 40 mg oral enteric coated tablet 1 tablet = 40 mg, By Mouth, Daily at bedtime, 0 Refills, Maintenance, 05/07/13 15:02:57 EDT Start Date: 05/07/13 Status: Ordered Trulicity Pen = 4.5 mg, Subcutaneous Injection, Every 7 days, sundays, 0 Refills, Maintenance, 04/05/19 12:24:23 EDT Start Date: 04/05/19 Status: Ordered Tylenol Extra Strength 500 mg oral tablet 2 tablet = 1,000 mg, By Mouth, 2 times a day, PRN as needed for pain, # 500 tablet, 0 Refills, Maintenance, 12/19/18 20:16:05 EST, Tablet Start Date: 12/19/18 Status: Ordered Vitamin B12 500 mcg/mL injectable solution See Instructions, 0 Refills, Maintenance, 12/12/21 9:16:00 EST, Partial fill upon patient request if the prescription is for a schedule II opioid drug. Start Date: 12/12/21 Status: Ordered Vitamin D2 50,000 intl units (1.25 mg) oral capsule See Instructions, 1 capsule By Mouth Daily, 0 Refills, Maintenance, 12/12/21 9:15:00 EST, Partial fill upon patient request if the prescription is for a schedule II opioid drug. Start Date: 12/12/21 Status: Ordered ZyrTEC 10 mg oral tablet 1 tablet = 10 mg, By Mouth, Daily at bedtime, 0 Refills, Maintenance, 12/12/21 9:14:00 EST, Partialfill upon patient request if the prescription is for a schedule II opioid drug. Start Date: 12/12/21 Status: Ordered Problem List Condition Effective Dates Status Health Status Inform ant Diabetes mellitus - adult onset(Confirmed) Active Hyperlipidemia(Confirmed) Active Obese class I(Confirmed) Active Palpitations(Confirmed) Active Peripheral neuropathy(Confirmed) Active Vital Signs Most recent to oldest [Reference Range]: 1 2 3 Height 162.56 cm (12/23/21 6:27 AM) 162.56 cm (12/12/21 9:47 AM) Weight 91.8 kg (12/23/21:27 AM) 88.64 kg (12/12/21 9:47 AM) Oxygen Saturation [94-100 %] 98 % (12/23/21 10:15 AM) 96 % (12/23/21 10:00 AM) 97 % (12/23/21 9:45 AM) Pulse Rate [55-90 bpm] 99 bpm *H* (12/23/21:27 AM) Body Mass Index [18.5-24.99] 34.74 *>HHI* (12/23/21:27 AM) 33.54 *>HHI* (12/12/21 9:47 AM) Blood Pressure [90-138/55-84 mm Hg] 135/77mm Hg (12/23/21 10:15 AM) 131/75mm Hg (12/23/21 10:00 AM) 132/75mm Hg (12/23/21 9:45 AM) Respiratory Rate [16-30 br/min] 23 br/min (12/23/21 10:15 AM) 16 br/min (12/23/21 10:10 AM) 12 br/min *L* (12/23/21 10:00 AM) Temperature [96.8-100.4 DegF] 97.5 DegF (12/23/21 10:15 AM) 97.2 DegF (12/23/21 9:00 AM) 97.5 DegF (12/23/21:27 AM) Liters per Minute 5 L/min (12/23/21 9:15 AM) 5 L/min (12/23/21 9:00 AM) Mode of Delivery (Oxygen) Room air (12/23/21 10:45 AM) Room air (12/23/21 10:15 AM) Room air (12/23/21 10:00 AM) Blood pressure sites Arm, left (12/23/21 10:15 AM) Arm, left (12/23/21 10:00 AM) Arm, left (12/23/21 9:45 AM) Temperature Route Axillary (12/23/21 10:15 AM) Oral (12/23/21 9:00 AM) Temporal (12/23/21 6:27 AM) Weight Obtained Via Standing scale (12/23/21 6:27 AM) Social History Social History Type Response Smoking Status Never (less than 100 in lifetime) entered on: 03/28/19 Sex
[2023-08-31 01:07] VITALS: BP 151/84; PULSE 87; RESP 16; TEMP 36.8; O2SAT 99
== END 2023-08-31 01:08 | disposition home or self-care (01) ==
PROVIDERS: Emergency Provider Internal Medicine
DX: S09.90XA Unspecified injury of head, initial encounter (principal); S00.12XA Contusion of left eyelid and periocular area, initial encounter; S80.01XA Contusion of right knee, initial encounter; W10.1XXA Fall (on)(from) sidewalk curb, initial encounter; G89.29 Other chronic pain; Z79.891 Long term (current) use of opiate analgesic; Y93.01 Activity, walking, marching and hiking; Y92.481 Parking lot as the place of occurrence of the external cause; Y99.9 Unspecified external cause status
CPT/HCPCS: 71101; 73562; 99283; 99284

== ENCOUNTER 2024-01-21 15:11 | Outpatient (REF) | payer MEDICARE, MEDICAID, SELFPAY ==
[2024-01-21 15:24] LABS: MANUAL DIFF FLAG NO
[2024-01-21 15:54] LABS: Basophils Percent Auto 0.4 % (0-2); Eosinophils Absolute Auto 0.2 X10*3/uL (0.0-0.4); Eosinophils Percent Auto 2.5 % (0-4); Hematocrit 29.5 % (37.0-47.0); Hemoglobin 9.7 g/dl (12.0-16.0); Imm Gran Abs Auto 0.02 X10*3/uL (0.00-0.03); Imm Gran Pct Auto 0.3 % (0.0-0.4); Lymphocytes Absolute Auto 1.6 X10*3/uL (1.2-4.9); Lymphocytes Percent Auto 20.9 % (20-40); Mean Corpuscular HGB Conc 32.9 g/dl (31.0-35.0); Mean Corpuscular Hemoglobin 28.1 pg (27.0-33.0); Mean Corpuscular Volume 85.5 fL (80.0-98.0); Mean Platelet Volume 9.7 fL (9.4-12.3); Monocytes Absolute Auto 0.3 X10*3/uL (0.1-1.2); Monocytes Percent Auto 4.2 % (2-11); Neutrophils Absolute Auto 5.5 x10*3/uL (2.0-8.3); Neutrophils Percent Auto 71.7 % (45-73); Platelet Count 212 X10*3/uL (160-400); Red Blood Count 3.45 X10*6/uL (4.20-5.50); Red Cell Distribution Width 13.6 % (11.0-16.0); White Blood Count 7.7 X10*3/uL (4.8-10.8)
[2024-01-21 16:27] LABS: Appearance Urine Cloudy; Color Urine Yellow; Glucose Urine UA Negative (Negative); Leukocyte Esterase Urine Trace (Negative); Nitrite Urine Negative (Negative); PH 7.5 (5.0-9.0); Specific Gravity - Urine 1.015 (1.005-1.025); UMIC TRIGGER UA YES; Urine Blood Negative (Negative); Urine Ketones Negative (Negative); Urine Protein 300 (3+) mg/dL (Neg-Trace)
[2024-01-21 16:45] LABS: Bacteria Urine 2+ (None Seen); Hyaline Casts Urine 0-2 /LPF (0-2); RBC Urine 0-2 /HPF (0-2); WBC Urine 0-5 /HPF (0-5)
[2024-01-21 16:49] LABS: Parathyroid Hormone Intact 385.3 pg/mL (8.7-77.1)
[2024-01-21 16:51] LABS: Albumin Level 3.7 g/dL (3.5-5.0); Anion Gap 12 (12-20); Blood Urea Nitrogen 48 mg/dL (9-16); Carbon Dioxide 25 mmol/L (22-29); Chloride 109 mmol/L (96-108); Estimated Glomerular Filt Rate 15; Phosphorus 4.3 mg/dL (2.7-4.5); Potassium 4.7 mmol/L (3.3-5.1); Sodium 141 mmol/L (135-145)
[2024-01-21 16:59] LABS: Creatinine Urine 79.28 mg/dL
[2024-01-21 17:08] LABS: Vitamin D 25-OH Total 17.7 ng/mL (>30)
[2024-01-21 17:23] LABS: Total Protein Urine Random 257 mg/dL (<12)
== END 2024-01-21 15:12 | disposition home or self-care (01) ==
LOC: HO.LAB 15:11
PROVIDERS: Visit Provider Internal Medicine Nephrology
DX: E11.29 Type 2 diabetes mellitus with other diabetic kidney complication (principal); E11.22 Type 2 diabetes mellitus with diabetic chronic kidney disease; N25.0 Renal osteodystrophy; N18.4 Chronic kidney disease, stage 4 (severe); R82.90 Unspecified abnormal findings in urine
CPT/HCPCS: 36415; 80051; 81001; 81003; 82040; 82043; 82306; 82310; 82565; 82570; 83735; 83970; 84100; 84156; 84520; 85025; 87086

== ENCOUNTER 2024-04-25 08:07 | Emergency (ER) | payer MEDICARE, MEDICAID, SELFPAY ==
[2024-04-25] VITALS (7 sets, daily range): BP systolic 130–174; BP diastolic 82–87; PULSE 90–103; RESP 13–18; TEMP 36.2–36.7; O2SAT 90–98; BMI 30.9
--- NOTE | ~2024-04-25 | XR_ITS ---
EXAMINATION: XR CHEST CLINICAL INFORMATION: Pneumonia, fluid overload. COMPARISON: 08/31/2023 TECHNIQUE: Frontal view of the chest was obtained. FINDINGS: Lungs are mildly hypoinflated. There are ill-defined patchy opacities in the right lung. No pleural effusion or pneumothorax. Cardiomediastinal silhouette has normal size and contour. Trachea is midline in position. The visualized bones are intact. XR/XR chest 1V IMPRESSION: * No evidence of congestive heart failure. * There appear to be patchy, ill-defined opacities in the right lung. These findings are suspicious for pneumonia.
--- NOTE | 2024-04-25 08:25 | ECG_ITS ---
Test Reason : SOB Blood Pressure : / mmHG Vent. Rate : 103 BPM Atrial Rate : 103 BPM P-R Int : 142 ms QRS Dur : 078 ms QT Int : 314 ms P-R-T Axes : 047 048 147 degrees QTc Int : [address] & T wave abnormality, consider lateral ischemia Abnormal ECG When compared with ECG of 17-DEC-2019 10:33, T wave inversion now evident in Lateral leads Referred By: Hiro Hatch Electronically Signed By:Parish Leslie
--- NOTE | 2024-04-25 08:37 | ED.GENADULT ---
HPI - General Adult General Chief complaint: Dyspnea Stated complaint: diff breathing Time Seen by Provider: 04/25/24 08:25 Source: patient Mode of arrival: ambulatory Limitations: no limitations History of Present Illness ED Provider: Hiro INTERIANO HPI narrative: 44-year-old female history of CKD, GERD, hyperparathyroidism presents to the ED for shortness of breath and dry cough. Patient denies any chest pain,pleurisy, calf pain, recent long travel, recent surgery or current leg swelling. Patient was recently seen at [facility] she was informed she had a low ejection fracture. Patient states having leg swelling in the past due to CKD but presently no leg swelling. Patient states last night sitting up to sleep and uses 2 pillows Related Data Home Medications ?Medication ?Instructions ?Recorded ?Confirmed blood sugar diagnostic #10 ea 12/24/20 08/31/21 blood-glucose meter #1 ea 12/24/20 08/31/21 ergocalciferol (vitamin D2) 1,250 50,000 unit PO WE 12/24/20 04/25/24 mcg (50,000 unit) capsule gabapentin 800 mg tablet 800 mg PO BEDTIME 12/24/20 04/25/24 lancets 28 gauge #100 ea 12/24/20 08/31/21 morphine 30 mg tablet,extended 30 mg PO TID chronic pain 12/24/20 04/25/24 release oxycodone 15 mg tablet 15 mg PO TID 12/24/20 04/25/24 labetalol 200 mg tablet 200 mg PO BID 06/16/21 04/25/24 gmizbglj-kqmsvsen-nnmw 45 mg-folic 1 cap PO DAILY 07/22/21 04/25/24 acid 800 mcg-vit K 120 mcg capsule (Bariatric Multivitamins) pantoprazole 40 mg tablet,delayed 40 mg PO BEDTIME@1830 07/22/21 04/25/24 release cetirizine 10 mg tablet (Zyrtec) 10 mg PO DAILY 04/25/24 04/25/24 dulaglutide 4.5 mg/0.5 mL 4.5 mg subcut SA 04/25/24 04/25/24 subcutaneous pen injector (Trulicity) hydralazine 25 mg tablet 25 mg PO BID 04/25/24 04/25/24 levothyroxine 100 mcg tablet 100 mcg PO DAILY 04/25/24 04/25/24 Previous Rx's ?Medication ?Instructions ?Recorded azithromycin 250 mg tablet See Rx Instructions PO .COMPLEX #6 04/25/24 tabs cefpodoxime 200 mg tablet 200 mg PO Q12H 5 days #10 tabs 04/25/24 Allergies Allergy/AdvReac Type Severity Reaction Status Date / Time amoxicillin [AMOXICILLIN] Allergy Intermediate RASH Verified 04/25/24 08:11 chlorhexidine Allergy Intermediate Rash Verified 04/25/24 08:11 rivaroxaban [From XARELTO] Allergy Intermediate RASH Verified 04/25/24 08:11 Review of Systems Review of Systems: Shortness of breath dry cough Yes all other systems are reviewed and are negative [facility] Past Medical History Medical History CKD (chronic kidney disease) Intestinal malabsorption following gastrectomy Gastroparesis IBS (irritable bowel syndrome) Bilateral cataracts Arthritis Degenerative joint disease of low back Fibromyalgia Nephritis Migraine headache Trigeminal neuralgia HTN (hypertension) Chronic pain Anemia Hyperlipidemia Diabetic polyneuropathy Renal insufficiency Type 2 diabetes mellitus Hypothyroidism Surgical History History of intestinal surgery History of vascular surgery History of laparoscopic cholecystectomy History of eye surgery History of sleeve gastrectomy Family History Family History Father No problems noted. Mother COPD (chronic obstructive pulmonary disease) Heart disease Maternal Grandmother Heart disease Sister No problems noted. Social History Social History Alcohol intake: never Patient Tobacco Use Status: Never used Tobacco Smoked in Last 30 Days: No Use of substances other than those prescribed or required for medical reasons: No Advance Directives: No Advance Directives Information Provided: No Do you have a plan to hurt others: No Plan Physical Exam ED Vital Signs: Vital Signs - 24 hr 04/25/24 08:09 04/25/24 09:29 04/25/24 09:30 Temperature 97.2 F Pulse Rate 102 H 103 H Respiratory Rate 18 Blood Pressure 162/87 H 157/83 H 157/83 H Pulse Oximetry 90 L Oxygen Delivery Method Room Air Oxygen Flow Rate 04/25/24 10:19 04/25/24 12:04 04/25/24 12:26 Temperature 97.8 F Pulse Rate 97 98 Respiratory Rate 13 14 Blood Pressure 162/87 H 174/84 H Pulse Oximetry 93 98 98 Oxygen Delivery Method Nasal Cannula Nasal Cannula Room Air Oxygen Flow Rate 2 2 04/25/24 13:44 Temperature 98.0 F Pulse Rate 90 Respiratory Rate 18 Blood Pressure 130/82 Pulse Oximetry 97 Oxygen Delivery Method Room Air Oxygen Flow Rate BMI result Body Mass Index 30.9 Const General: cooperative, healthy appearing, comfortable, no acute distress, well developed, alert, awake and Physically active Orientation/consciousness: oriented to person, oriented to place, oriented to time and patient oriented x3 [facility] Head: Yes normal to inspection, Yes No palpable skull fracture present, Yes normocephalic and Yes atraumatic Eyes General: appearance normal, both eyes and all related structures Neck Neck: Yes normal visual inspection, Yes full ROM, Yes no lymphadenopathy, Yes no meningeal signs, Yes trachea midline, Yes supple, No anterior neck swelling and No tender Chest Chest palpation & inspection: normal inspection of the chest and normal palpation of entire chest wall Resp Effort & Inspection: normal respiratory effort Auscultation: crackles, no rales, no rhonchi and no wheezes Cardio Jugular venous distension: no JVD Heart sounds: S1 normal heart sound present and S2 normal heart sound present GI Inspection: Yes normal to inspection Palpation (GI): Soft to palpation, not firm, nontender, no guarding and not rigid General: No CVA tenderness and Yes no CVA tenderness Back/Spine/Pelvis Back: no CVA tenderness, No CVA tenderness and No back tenderness Skin General skin exam: no rashes or lesions noted, elasticity normal and turgor normal Neuro General: oriented to person, oriented to place, oriented to time, patient oriented x3, gait normal, tone normal, moves all extremities, Normal light touch and pain sensation, no meningeal signs, no focal motor deficits, CN's II-XI intact bilaterally and normal sensation to monofilament Extrem Other: Bilateral lower extremity negative for swelling, pitting edema, or calf tenderness. General: Yes normal to inspection and Yes full ROM Psych Appearance: grossly normal, well kempt and not disheveled Medications Administered Discontinued Medications Generic Name Dose Route Start Last Admin Trade Name Freq PRN Reason Stop Dose Admin Furosemide 40 mg 04/25/24 09:15 04/25/24 09:29 Furosemide 40 Mg/4 Ml Vial IVPUSH 04/25/24 09:16 40 mg STAT STA Administration Protocol Ceftriaxone Sodium 1 gm/ 50 mls @ 100 mls/hr 04/25/24 10:28 04/25/24 13:29 Sodium Chloride IV 04/25/24 10:57 Infused ONCE ONE Infusion Nitroglycerin 0.5 inch 04/25/24 09:15 04/25/24 09:30 Nitroglycerin 2 % Oint 1 Gm Packet TRANSDERMA 04/25/24 09:16 0.5 inch ONCE ONE Administration Medical Decision Making Medical Decision Making MDM Narrative: 44-year-old female history of CKD recent ankle stated low ejection fraction as per patient presenting for shortness of breath and cough without any chest pain. Patient is slightly hypoxic and hypertensive. Patient placed on oxygen. Looking for possible fluid overload chest x-ray BNP ordered. Mild JVD of the left. Patient denies ever having chest pain. 9:24pm: Patient labs juan daniel indicate fluid overload. Waiting for [facility] notes. Troponin negative. Possibly will call Nephrology. Patient states he sees Dr. Rascon. Lasix nitro paste ordered 10:15am: Case discussed with Dr. Rascon including diagnostic and lab results and vital signs. He states patient presently does not need any dialysis. He agreeable patient should be admitted for pneumonia and he will see patient during admission. Patient not in fluid overload as per reservations clerk. X-ray negative for any pleural effusion or signs of fluid overload. I reviewed patient's [facility] notes which shows EF of 40-50%. Also I reviewed saw vascular note to schedule a dialysis placement but never had it done. Dr. Richardson hospitalist accepted case. 1:10pm: Patient evaluated by hospitalist MARIANNE Carey who discussed case with attending Hospitalsits Dr. Richardson. They (Dr. Monroe and MARIANNE Stubbs) states patient does not need to be admitted. Presently patient is not hypoxic. Patient does not have any elevated white blood cell count. Patient is not on any distress. Hospitalists states patient is not in fluid overload. Patient is agreeable with plan would like to be discharged. Case discussed with Dr. Rascon again who states he agreed with the plan of hospitalists recommended discharge. Hospitalist Dr. Richardson does not recommend any Lasix or diuretics. Just p.o. antibiotics. Patient informed to follow-up with her appointment with Dr. Rascon on Sunday. Patient explained worrisome signs informed to return to the ED immediately. On discharge patient's O2 saturation 97%. Patient no longer hypertensive. Patient also has cardiology appointment next Sunday. Differential Diagnosis Differential Diagnoses: The differential diagnosis associated with the presentation includes (Fluid overload. Pneumonia. COVID, SARs.) Admission/Observation Consideration of admission/observation: Escalation of care including admission/observation considered Consult Healthcare Provider Management of the patient was discussed with: Hospitalist (Dr. Harris) and Inpatient Services Director (Dr. Rascon. REnal) Lab Data MDM Lab Attestation statement: I reviewed the patient's lab results. 04/25/24 08:45 04/25/24 08:45 Labs: Lab Results 04/25/24 04/25/24 04/25/24 Range/Units 08:45 08:47 11:27 WBC 7.5 (4.8-10.8) X10*3/uL RBC 3.64 L (4.20-5.50) X10*6/uL Hgb 9.7 L (12.0-16.0) g/dl Hct 30.3 L (37.0-47.0) % MCV 83.2 (80.0-98.0) fL MCH 26.6 L (27.0-33.0) pg MCHC 32.0 (31.0-35.0) g/dl RDW 13.8 (11.0-16.0) % Plt Count 163 (160-400) X10*3/uL MPV 9.1 L (9.4-12.3) fL Immature Gran % (Auto) 0.3 (0.0-0.4) % Neut % (Auto) 71.1 (45-73) % Lymph % (Auto) 19.3 L (20-40) % Starke % (Auto) 6.7 (2-11) % Eos % (Auto) 2.1 (0-4) % Baso % (Auto) 0.5 (0-2) % Lymph # (Auto) 1.5 (1.2-4.9) X10*3/uL Starke # (Auto) 0.5 (0.1-1.2) X10*3/uL Eos # (Auto) 0.2 (0.0-0.4) X10*3/uL Baso # (Auto) 0.0 (0.0-0.2) X10*3/uL Abs Immat Gran (auto) 0.02 (0.00-0.03) X10*3/uL Absolute Neuts (auto) 5.3 (2.0-8.3) x10*3/uL Absolute Nucleated RBC 0.000 (0.0-0.012) X10*3/uL Nucleated RBC % (auto) 0.0 (0.0-0.2) /100WBC PT 11.3 (11.1-13.3) SEC INR 0.9 (0.9-1.1) APTT 29.4 (26.0-36.8) SEC Sodium 142 (135-145) mmol/L Potassium 4.6 (3.3-5.1) mmol/L Chloride 111 H (96-108) mmol/L Carbon Dioxide 24 (22-29) mmol/L Anion Gap 12 (12-20) BUN 53 H (9-16) mg/dL Creatinine 3.79 H (0.5-1.4) mg/dL Estim Creat Clear Calc 20.0 Estimated GFR 13 Random Glucose 127 H (60-115) mg/dL Lactic Acid 0.8 (0.5-2.0) mmol/L Calcium 8.4 D (8.4-10.2) mg/dL Total Bilirubin 0.4 (0.0-1.0) mg/dL AST 14 (5-31) U/L ALT 7 (0-31) U/L Alkaline Phosphatase 62 (39-117) U/L Troponin I High Sens 8.9 (<3.5-17.0) ng/L B-Natriuretic Peptide 981 H (<100) pg/mL Total Protein 6.7 (6.5-8.0) g/dL Albumin 3.5 (3.5-5.0) g/dL Influenza Type A (PCR) NEGATIVE (Negative) Influenza Type B (PCR) NEGATIVE (Negative) RSV RNA Qual (PCR) NEGATIVE (Negative) SARS-CoV-2 RNA (RT-PCR) NEGATIVE (Negative) Independent Interpretation I performed an independent interpretation of an: EKG (Sinus tach.) and Plain X-Ray Interpretation: [id number] [place] [address] XRay Report Signed Patient: Yanely Vera MR#: [id number] : 1980 Acct:[id number] Age/Sex: 44 / F ADM Date: 04/25/24 Loc: .ED Attending Dr: Ordering Physician: Hiro Hatch Date of Service: 04/25/24 Procedure(s): XR chest 1V Accession Number(s): [id number] cc: Hiro Hatch; Niharika Nichols DO~ EXAMINATION: XR CHEST CLINICAL INFORMATION: Pneumonia, fluid overload. COMPARISON: 08/31/2023 TECHNIQUE: Frontal view of the chest was obtained. FINDINGS: Lungs are mildly hypoinflated. There are ill-defined patchy opacities in the right lung. No pleural effusion or pneumothorax. Cardiomediastinal silhouette has normal size and contour. Trachea is midline in position. The visualized bones are intact. XR/XR chest 1V IMPRESSION: * No evidence of congestive heart failure. * There appear to be patchy, ill-defined opacities in the right lung. These findings are suspicious for pneumonia. Dictated By: Chris Hebert MD Signed By: <Electronically signed by Chris Hebert MD in OV> 04/25/2448 DD/ 0930 TD/TT: Perinatal Instructor: PD Radiology Impression Discussion of test interpretation with radiology: I have reviewed the radiologist's reading. Prescription Management I considered prescription management with: Antibiotic Critical Care Time Critical Care Time Critical Care Time: Yes Total Critical Care Time: 60 Attestation: 44-year-old female presents to ED hypoxic with elevated blood pressure. Labs EKG chest x-ray ordered. Patient received Lasix and nitro paste. Banking Analyst Dr. Rascon was called. Patient started antibiotics Discharge Plan Discharge Clinical Impression: Pneumonia Patient Disposition: Home, Self-Care Instructions: Community Acquired Pneumonia (ED) Additional Instructions: You were cleared for discharge by our hospitalist. Return to the ED immediately for any chest pain, shortness of breath, leg swelling, calf pain, coughing up phlegm, coughing up blood, intractable fever, chills, weakness, dizziness, or any other concerning symptoms. Recommend follow-up with primary care provider. Make sure you keep your appointment with Dr. Rascon your reservations clerk. Prescriptions: New cefpodoxime 200 mg tablet 200 mg PO Q12H 5 Days Qty: 10 0RF Rx Instructions: must administer with a meal/food azithromycin 250 mg tablet See Rx Instructions .ROUTE .COMPLEX Qty: 6 0RF Rx Instructions: For 250 mg dose pack: take 500 mg today (day 1), then 250 mg for 4 days (days 2-5) No Action Trulicity 4.5 mg/0.5 mL pen injector 4.5 mg subcut SA hydralazine 25 mg tablet 25 mg PO BID levothyroxine 100 mcg tablet 100 mcg PO DAILY cetirizine [Zyrtec] 10 mg Tablet 10 mg PO DAILY oxycodone 15 mg tablet 15 mg PO TID morphine 30 mg tablet extended release 30 mg PO TID gabapentin 800 mg tablet 800 mg PO BEDTIME (DME) lancets 28 gauge misc See Rx Instructions topical DAILY Qty: 100 Rx Instructions: As directed (DME) blood-glucose meter Kit See Rx Instructions .ROUTE DIRECTED Qty: 1 Rx Instructions: As directed (DME) FreeStyle Lite Strips Strip See Rx Instructions Not Applicable .MEDSUPPLY Qty: 10 Rx Instructions: As directed ergocalciferol (vitamin D2) 1,250 mcg (50,000 unit) capsule 50,000 unit PO WE pantoprazole 40 mg tablet,delayed release (DR/EC) 40 mg PO BEDTIME@1830 labetalol 200 mg tablet 200 mg PO BID Bariatric Multivitamins 45 mg iron- 800 mcg-120 mcg capsule 1 cap PO DAILY Referrals: David Rascon MD [Physician] - (Chronic kidney disease) Stand Alone Forms: Work/School Release Interventions: ED Discharge Assessment Last Done: 04/25/24 13:44 Print Language: Frisian
[2024-04-25 08:52] LABS: Basophils Percent Auto 0.5 % (0-2); Eosinophils Absolute Auto 0.2 X10*3/uL (0.0-0.4); Eosinophils Percent Auto 2.1 % (0-4); Hematocrit 30.3 % (37.0-47.0); Hemoglobin 9.7 g/dl (12.0-16.0); Imm Gran Abs Auto 0.02 X10*3/uL (0.00-0.03); Imm Gran Pct Auto 0.3 % (0.0-0.4); Lymphocytes Absolute Auto 1.5 X10*3/uL (1.2-4.9); Lymphocytes Percent Auto 19.3 % (20-40); MANUAL DIFF FLAG NO; Mean Corpuscular Hemoglobin 26.6 pg (27.0-33.0); Mean Corpuscular Volume 83.2 fL (80.0-98.0); Mean Platelet Volume 9.1 fL (9.4-12.3); Monocytes Absolute Auto 0.5 X10*3/uL (0.1-1.2); Monocytes Percent Auto 6.7 % (2-11); Neutrophils Absolute Auto 5.3 x10*3/uL (2.0-8.3); Neutrophils Percent Auto 71.1 % (45-73); Platelet Count 163 X10*3/uL (160-400); Red Blood Count 3.64 X10*6/uL (4.20-5.50); Red Cell Distribution Width 13.8 % (11.0-16.0); White Blood Count 7.5 X10*3/uL (4.8-10.8)
[2024-04-25 08:58] LABS: INTERNATIONAL NORM RATIO 0.9 (0.9-1.1); Prothrombin Time 11.3 SEC (11.1-13.3)
[2024-04-25 09:01] LABS: Partial Thromboplastin Time 29.4 SEC (26.0-36.8)
--- NOTE | 2024-04-25 09:06 | PC.NURSE ---
Pt comes from home for increased SOB. Hx of CKD stage 4. A/ox4, crackles throughout lung amador, rr even and unlabored, O2 91-93%on 2L NC, S1 and S2 heard, no edema/JVD, abdomen soft and non-tender. 20g IV in left ac, no IV/lab draws on right arm due to possible fistula placement in the future. Pt denies cp/dizziness/n/v/d. vss and up to date, pending lab results and x-ray. Pt aware of ongoing plan of care. Resting quietly in bed, call calderon within reach.
[2024-04-25 09:09] LABS: Alanine Aminotransferase 7 U/L (0-31); Albumin Level 3.5 g/dL (3.5-5.0); Alkaline Phosphatase 62 U/L (39-117); Anion Gap 12 (12-20); Aspartate Amino Transferase 14 U/L (5-31); Bilirubin Total 0.4 mg/dL (0.0-1.0); Blood Urea Nitrogen 53 mg/dL (9-16); Calcium 8.4 mg/dL (8.4-10.2); Carbon Dioxide 24 mmol/L (22-29); Chloride 111 mmol/L (96-108); Estimated Glomerular Filt Rate 13; Glucose Random 127 mg/dL (60-115); Potassium 4.6 mmol/L (3.3-5.1); Sodium 142 mmol/L (135-145); Total Protein 6.7 g/dL (6.5-8.0)
[2024-04-25 09:14] LABS: B Type Natriuretic Peptide 981 pg/mL (<100)
[2024-04-25 09:16] LABS: Troponin-I High Sensitivity 8.9 ng/L (<3.5-17.0)
[2024-04-25] MEDS: Furosemide 40 MG/4 ML VIAL IVPUSH (09:29)
[2024-04-25] MEDS: Nitroglycerin 2 % Oint 1 GM Packet 0.5 INCH TRANSDERMA (09:30)
--- NOTE | 2024-04-25 09:38 | MHC.EDTECH ---
Hiro Hatch requested a call to [facility] requesting the most recent hospital visit, echo and nephrology notes. I Called [facility] @ 9:15 and spoke to the Follow up Nurse who faxed over notes. I called back @ 9:30 to the Follow up Nurse letting her know that pages were missing.
[2024-04-25 09:55] LABS: Influenza A PCR NEGATIVE (Negative); Influenza B PCR NEGATIVE (Negative); Resp Syncy Virus RNA Qual PCR NEGATIVE (Negative); SARS COV2 PCR INHOUSE NEGATIVE (Negative)
--- NOTE | 2024-04-25 10:24 | MHC.EDTECH ---
walked with pt to the restroom
--- NOTE | 2024-04-25 11:30 | PM.IMHP ---
History of Present Illness Date of Service: 04/25/24 Attending physician on admission: Yassine Trinidad Chief Complaint: SOB, difficulty breathing Pt is a 44-year-old female with a PMH significant for?CKD 4, hyperparathyroidism, GERD, anemia of chronic disease, and hx of bariatric surgery who presents to the ED with? In the ED pt was tachycardic up to 103 hypertensive up to 162/87, and satting as low as 90% on RA. Labs were significant for baseline H&H 9.7/30.3, BUN 53, creatinine 3.79, and BNP 981. No leukocytosis. No significant electrolyte abnormalities. Tested negative for flu, RSV, COVID. CXR showed no evidence of CHF, but did show patchy, ill-defined opacities in the right lung suspicious for pneumonia. EKG demonstrated sinus tachycardia with T-wave inversions in lateral leads. Pt was treated with Pt will be admitted to the hospital [facility] Medical History CKD (chronic kidney disease) Intestinal malabsorption following gastrectomy Gastroparesis IBS (irritable bowel syndrome) Bilateral cataracts Arthritis Degenerative joint disease of low back Fibromyalgia Nephritis Migraine headache Trigeminal neuralgia HTN (hypertension) Chronic pain Anemia Hyperlipidemia Diabetic polyneuropathy Renal insufficiency Type 2 diabetes mellitus Hypothyroidism Family History Father No problems noted. Mother COPD (chronic obstructive pulmonary disease) Heart disease Maternal Grandmother Heart disease Sister No problems noted. Surgical History History of intestinal surgery History of vascular surgery History of laparoscopic cholecystectomy History of eye surgery History of sleeve gastrectomy Social History Alcohol intake: never Patient Tobacco Use Status: Never used Tobacco Smoked in Last 30 Days: No Use of substances other than those prescribed or required for medical reasons: No Advance Directives: No Advance Directives Information Provided: No Do you have a plan to hurt others: No Plan Meds Allergies Allergy/AdvReac Type Severity Reaction Status Date / Time amoxicillin [AMOXICILLIN] Allergy Intermediate RASH Verified 04/25/24 08:11 chlorhexidine Allergy Intermediate Rash Verified 04/25/24 08:11 rivaroxaban [From XARELTO] Allergy Intermediate RASH Verified 04/25/24 08:11 Active Medications: Current Medications Azithromycin 500 mg/ Sodium (Chloride) 250 mls @ 125 mls/hr IV ONCE ONE Stop: 04/25/24 12:27 Home Medications ?Medication ?Instructions ?Recorded ?Confirmed ?Last Taken ?Type blood sugar diagnostic #10 ea 12/24/20 08/31/21 Unknown History blood-glucose meter #1 ea 12/24/20 08/31/21 Unknown History cyclobenzaprine 10 mg tablet 10 mg PO BEDTIME 12/24/20 08/31/21 Unknown History dulaglutide 1.5 mg/0.5 mL 3 mg subcut QWEEK 12/24/20 08/31/21 04/11/21 History subcutaneous pen injector ergocalciferol (vitamin D2) 1,250 50,000 unit PO QWEEK 12/24/20 08/31/21 Unknown History mcg (50,000 unit) capsule gabapentin 800 mg tablet 2,400 mg PO BEDTIME 12/24/20 08/31/21 Unknown History lancets 28 gauge #100 ea 12/24/20 08/31/21 Unknown History levothyroxine 125 mcg tablet 125 mcg PO DAILY 12/24/20 08/31/21 Unknown History morphine 30 mg tablet,extended 30 mg PO TID chronic pain 12/24/20 08/31/21 Unknown History release oxycodone 15 mg tablet 15 mg PO TID 12/24/20 08/31/21 Unknown History labetalol 200 mg tablet 200 mg PO BID 06/16/21 08/31/21 Unknown History calcium citrate 1,000 mg tablet 1,000 mg PO DAILY 07/22/21 08/31/21 Unknown History fdxqfiby-rvyknzoo-naog 45 mg-folic 1 cap PO DAILY 07/22/21 08/31/21 Unknown History acid 800 mcg-vit K 120 mcg capsule (Bariatric Multivitamins) pantoprazole 40 mg tablet,delayed 40 mg PO DAILY 07/22/21 08/31/21 Unknown History release Physical Exam Vital Signs and Narrative: Vital Signs: Last Vital Signs Temp 97.8 F 04/25/24 10:19 Pulse 97 04/25/24 10:19 Resp 13 04/25/24 10:19 BP 162/87 H 04/25/24 10:19 Pulse Ox 93 04/25/24 10:19 O2 Del Method Nasal Cannula 04/25/24 10:19 O2 Flow Rate 2 04/25/24 10:19 BMI result Body Mass Index 30.9 Results Labs 04/25/24 08:45 04/25/24 08:45 Labs: Laboratory Results - last 24 hr 04/25/24 04/25/24 08:45 08:47 MCV 83.2 MCH 26.6 L MCHC 32.0 RDW 13.8 Plt Count 163 MPV 9.1 L Immature Gran % (Auto) 0.3 Neut % (Auto) 71.1 Lymph % (Auto) 19.3 L [place] % (Auto) 6.7 Eos % (Auto) 2.1 Baso % (Auto) 0.5 Lymph # (Auto) 1.5 [place] # (Auto) 0.5 Eos # (Auto) 0.2 Baso # (Auto) 0.0 Abs Immat Gran (auto) 0.02 Absolute Neuts (auto) 5.3 Absolute Nucleated RBC 0.000 Nucleated RBC % (auto) 0.0 PT 11.3 INR 0.9 APTT 29.4 Anion Gap 12 Estim Creat Clear Calc 20.0 Estimated GFR 13 Random Glucose 127 H Calcium 8.4 D Total Bilirubin 0.4 AST 14 ALT 7 Alkaline Phosphatase 62 Troponin I High Sens 8.9 B-Natriuretic Peptide 981 H Total Protein 6.7 Albumin 3.5 Influenza Type A (PCR) NEGATIVE Influenza Type B (PCR) NEGATIVE RSV RNA Qual (PCR) NEGATIVE SARS-CoV-2 RNA (RT-PCR) NEGATIVE Imaging Radiologist's Impressions: Impressions Chest X-Ray 04/25/24 09:30 IMPRESSION: * No evidence of congestive heart failure. * There appear to be patchy, ill-defined opacities in the right lung. These findings are suspicious for pneumonia. Assessment and Plan Plan Elevated BNP Abnormal EKG
[2024-04-25 11:56] LABS: Lactic Acid 0.8 mmol/L (0.5-2.0)
[2024-04-25] MEDS: cefTRIAXone sodium 1 GM in 0.9 % Sodium Chloride 50 ML IV (12:06)
--- NOTE | 2024-04-25 12:32 | PHA.MEDREC ---
Pharmacy Consult ? Medication Reconciliation Pharmacy has completed the medication reconciliation.Confirmed medications with patient. She told me she takes Trulicity 4.5mg/0.5ml injecting it subcutaneously once weekly on Saturdays. The last time the patient was able to take this medication was 04/12 due to her pharmacy having a hard time being able to get it filled. Patient also taking a Vitamin D2 125mcg (50,000 unit) once weekly on Wednesdays and she confirmed that she took it this past Monday 04/23.
--- NOTE | 2024-05-01 09:40 | P.PNNP_ITS ---
Subjective Subjective Date of Service: 04/28/24 Principal diagnosis: CKD 5, DM, HTN Interval history: RTANE patient for years seen today for f/u re: adv CKD and approaching ESRD full note available [phone] Callany questions Physical Exam 2 Vital Signs: Vital Signs: Last Vital Signs Temp 98.0 F 04/25/24 13:44 Pulse 90 04/25/24 13:44 Resp 18 04/25/24 13:44 BP 130/82 04/25/24 13:44 Pulse Ox 97 04/25/24 13:44 O2 Del Method Room Air 04/25/24 13:44 O2 Flow Rate 2 04/25/24 12:04 BMI result Body Mass Index 30.9 Objective Data Labs 04/25/24 08:45 04/25/24 08:45 Microbiology Microbiology Results: Microbiology 04/25/24 11:56 Blood - Venous Blood Culture - Final No growth after 5 days. 04/25/24 11:27 Blood - Venous Blood Culture - Final No growth after 5 days. Procedures Date of Service Date of Service: 05/01/24 Assessment & Plan Time Spent With Patient Time: Total time managing care of this patient today ____ minutes.
== END 2024-04-25 16:21 | disposition home or self-care (01) ==
PROVIDERS: Physician Assistant; Emergency Provider Emergency Medicine; PCP Family Medicine
DX: J18.9 Pneumonia, unspecified organism (principal); R06.02 Shortness of breath; R05.9 Cough, unspecified; E11.22 Type 2 diabetes mellitus with diabetic chronic kidney disease; I12.9 Hypertensive chronic kidney disease with stage 1 through stage 4 chronic kidney disease, or unspecified chronic kidney disease; N18.9 Chronic kidney disease, unspecified; K21.9 Gastro-esophageal reflux disease without esophagitis; Z03.818 Encounter for observation for suspected exposure to other biological agents ruled out; Z79.4 Long term (current) use of insulin; Z79.84 Long term (current) use of oral hypoglycemic drugs; Z79.899 Other long term (current) drug therapy; Z79.85 Long-term (current) use of injectable non-insulin antidiabetic drugs
CPT/HCPCS: 0241U; 36415; 71045; 80053; 83605; 83880; 84484; 85025; 85610; 85730; 87040; 93005; 96365; 96366; 96375; 99284; 99285; J0696; J1940

== ENCOUNTER → 2024-04-25 08:25 | Outpatient (BNV) | payer MEDICARE, MEDICAID, SELFPAY | PROVIDERS: Emergency Provider Emergency Medicine; PCP Family Medicine; Visit Provider Internal Medicine Cardiovascular Disease | DX: R06.02 Shortness of breath (principal); R00.0 Tachycardia, unspecified; R94.31 Abnormal electrocardiogram [ECG] [EKG] | CPT/HCPCS: 93010 ==

== ENCOUNTER 2024-06-06 16:29 | Outpatient (REF) | payer MEDICARE, MEDICAID, SELFPAY ==
[2024-06-06 16:49] LABS: MANUAL DIFF FLAG NO
[2024-06-06 19:17] LABS: Basophils Percent Auto 0.5 % (0-2); Eosinophils Absolute Auto 0.2 X10*3/uL (0.0-0.4); Hematocrit 32.1 % (37.0-47.0); Hemoglobin 10.4 g/dl (12.0-16.0); Imm Gran Abs Auto 0.02 X10*3/uL (0.00-0.03); Imm Gran Pct Auto 0.3 % (0.0-0.4); Lymphocytes Percent Auto 27.3 % (20-40); Mean Corpuscular HGB Conc 32.4 g/dl (31.0-35.0); Mean Corpuscular Hemoglobin 25.8 pg (27.0-33.0); Mean Corpuscular Volume 79.7 fL (80.0-98.0); Monocytes Absolute Auto 0.4 X10*3/uL (0.1-1.2); Monocytes Percent Auto 5.6 % (2-11); Neutrophils Absolute Auto 4.7 x10*3/uL (2.0-8.3); Neutrophils Percent Auto 64.3 % (45-73); Platelet Count 200 X10*3/uL (160-400); Red Blood Count 4.03 X10*6/uL (4.20-5.50); Red Cell Distribution Width 14.2 % (11.0-16.0); White Blood Count 7.4 X10*3/uL (4.8-10.8)
[2024-06-06 19:51] LABS: Anion Gap 17 (12-20); Blood Urea Nitrogen 98 mg/dL (9-16); Calcium 9.6 mg/dL (8.4-10.2); Carbon Dioxide 29 mmol/L (22-29); Chloride 100 mmol/L (96-108); Magnesium 2.6 mg/dL (1.6-2.6); Phosphorus 5.6 mg/dL (2.7-4.5); Sodium 142 mmol/L (135-145)
[2024-06-06 19:54] LABS: Ferritin 73 ng/mL (10-250)
[2024-06-06 20:38] LABS: Estimated Glomerular Filt Rate 9
[2024-06-07 05:34] LABS: Parathyroid Hormone Intact 472.4 pg/mL (8.7-77.1)
== END 2024-06-06 16:30 | disposition home or self-care (01) ==
LOC: HO.LAB 16:29
PROVIDERS: PCP Family Medicine; Visit Provider Internal Medicine Nephrology
DX: N18.4 Chronic kidney disease, stage 4 (severe) (principal); E11.21 Type 2 diabetes mellitus with diabetic nephropathy; N25.0 Renal osteodystrophy; D63.1 Anemia in chronic kidney disease
CPT/HCPCS: 36415; 80051; 82040; 82306; 82310; 82565; 82728; 83735; 83970; 84100; 84520; 85025

== ENCOUNTER 2024-07-21 14:12 | Outpatient (REF) | payer MEDICARE, MEDICAID, SELFPAY ==
[2024-07-21 14:56] LABS: MANUAL DIFF FLAG NO
[2024-07-21 15:25] LABS: Basophils Percent Auto 0.2 % (0-2); Eosinophils Absolute Auto 0.1 X10*3/uL (0.0-0.4); Eosinophils Percent Auto 1.6 % (0-4); Hematocrit 27.9 % (37.0-47.0); Hemoglobin 9.1 g/dl (12.0-16.0); Imm Gran Abs Auto 0.04 X10*3/uL (0.00-0.03); Imm Gran Pct Auto 0.4 % (0.0-0.4); Lymphocytes Absolute Auto 1.5 X10*3/uL (1.2-4.9); Lymphocytes Percent Auto 16.6 % (20-40); Mean Corpuscular HGB Conc 32.6 g/dl (31.0-35.0); Mean Corpuscular Hemoglobin 26.2 pg (27.0-33.0); Mean Corpuscular Volume 80.4 fL (80.0-98.0); Mean Platelet Volume 9.6 fL (9.4-12.3); Monocytes Absolute Auto 0.4 X10*3/uL (0.1-1.2); Monocytes Percent Auto 4.8 % (2-11); Neutrophils Absolute Auto 6.9 x10*3/uL (2.0-8.3); Neutrophils Percent Auto 76.4 % (45-73); Platelet Count 168 X10*3/uL (160-400); Red Blood Count 3.47 X10*6/uL (4.20-5.50); Red Cell Distribution Width 16.7 % (11.0-16.0)
[2024-07-21 15:57] LABS: Parathyroid Hormone Intact 250.2 pg/mL (8.7-77.1)
[2024-07-21 16:13] LABS: Albumin Level 3.6 g/dL (3.5-5.0); Anion Gap 15 (12-20); Blood Urea Nitrogen 76 mg/dL (9-16); Calcium 9.5 mg/dL (8.4-10.2); Carbon Dioxide 25 mmol/L (22-29); Chloride 106 mmol/L (96-108); Estimated Glomerular Filt Rate 10; Magnesium 2.3 mg/dL (1.6-2.6); Phosphorus 5.5 mg/dL (2.7-4.5); Sodium 142 mmol/L (135-145)
[2024-07-25 15:48] LABS: VITAMIN D (1,25 OH) D3 12 pg/mL; Vit D (1,25-Dihydroxy) Total 22 pg/mL (18-72); Vitamin D (1,25 OH) D2 10 pg/mL
== END 2024-07-21 14:13 | disposition home or self-care (01) ==
LOC: HO.LAB 14:12
PROVIDERS: PCP Family Medicine; Visit Provider Internal Medicine Nephrology
DX: N18.5 Chronic kidney disease, stage 5 (principal); M32.9 Systemic lupus erythematosus, unspecified; D63.1 Anemia in chronic kidney disease; N18.9 Chronic kidney disease, unspecified
CPT/HCPCS: 36415; 80051; 82040; 82310; 82565; 82652; 83735; 83970; 84100; 84520; 85025

== ENCOUNTER → 2025-04-10 08:46 | Outpatient (BNVA) | payer SELFPAY | PROVIDERS: PCP Family Medicine ==

== ENCOUNTER 2025-05-05 14:23 | Outpatient (AMB) | payer MEDICARE, MEDICAID, SELFPAY ==
--- OUTSIDE RECORDS SUMMARY | 2025-05-02 23:59 | XMS_ITS | Continuity of Care Document ---
Author Organization [facility] ter Address [address] [place] [id number]- Care Team Providers Care Service Delivery Director Name Role Phone Niharika Nichols DO Primary Care Physician [phone] [id number] Date(s[facility] 03/23/25 - 05/02/[address] [address] Attending Physician: Erika Petersen MD Admitting Physician: Erika Petersen MD Referring Physician: Erika Petersen MD Encounter Type: Pre-Outpt Allergies, Adverse Reactions, Alerts Substance Criticality Severity Reaction Reaction Severity Status amoxicillin rash Active pravastatin muscle cramping/aches Active Toradol unsure Active Amoxil rash Active Xarelto rash Active chlorhexidine topical Severe opened Rashes Active venlafaxine unsure Active Tape tegaderm-rash Active NSAIDs r/t kidney disease A ctive metFORMIN r/t kidney disease A ctive FLUoxetine HCl unsure Activ e Immunizations Given and Recorded Vaccine Date Status Refusal Reason Hepatitis B Vaccine (old term) 07/01/24 Recorded hepatitis B adult vaccine 04/23/24 Given Medications calcitriol 0.25 mcg oral capsule 1 capsule = 0.25 mcg, By Mouth, Daily, # 30 capsule, 0 Refills, Maintenance, 02/23/25 1:36:00 PM EDT, Capsule, Partial fill upon patient request if the prescription is for a schedule II opioid drug. Start Date: 02/23/25 Status: Ordered Quantity: 30.0 Unit: capsule Repeat number: 1 Flexeril 10 mg oral tablet 1, tablet, By Mouth, Daily at bedtime, PRN, for tension headaches, # 30 tablet, Refills 0, Maintenance, for spasm, 02/25/24 2:58:00 PM EDT, Partial fill upon patient request if the prescription is fora schedule II opioid drug. Start Date: 02/25/24 Status: Ordered Quantity: 30.0 Unit: tablet Repeat number: 1 gabapentin 800 mg oral tablet = 800 mg, By Mouth, Daily at bedtime, still prescribed 2400mg at bedtime... trying to decrease., 0 Refills, Maintenance, 05/07/13 3:07:46 PM EDT Start Date: 05/07/13 Status: Ordered Repeat number: 1 levothyroxine 0.1 mg oral tablet 1 tablet = 100 mcg, By Mouth, Daily in AM, # 30 tablet, 0 Refills, Maintenance, 02/25/24 2:56:00 PM EDT, Tablet, Partial fill upon patient request if the prescription is for a schedule II opioid drug. Start Date: 02/25/24 Status: Ordered Quantity: 30.0 Unit: tablet Repeat number: 1 metoprolol 50 mg oral tablet, extended release 50 mg, 1, tablet, By Mouth, Daily, # 30 tablet, Refills 0, Maintenance, 02/23/25 1:36:00 PM EDT, Partial fill upon patient request if the prescription is for a schedule II opioid drug. Start Date: 02/23/25 Status: Ordered Quantity: 30.0 Unit: tablet Repeat number: 1 MS Contin Tablet 30 mg, By Mouth, Every 8 hours, Refills 0, Tot. Refills 0, Maintenance, 12/12/21 9:13:00 AM EST, Partial fill upon patient request if the prescription is for a schedule II opioid drug. Start Date: 12/12/21 Status: Ordered Repeat number: 1 Narcan 4 mg/0.1 mL nasal spray See Instructions, never needed to use med, 0 Refills, Maintenance, 12/19/18 6:31:08 PM EST Start Date: 12/19/18 Status: Ordered Repeat number: 1 Nystop 080733 u/gm powder 1 application, Topically, 2 times a day, PRN Rash, # 30 Gm, 0 Refills, Maintenance, 06/26/24 10:48:00 AM EDT, Powder, Partial fill upon patient request if the prescription is for a schedule II opioid drug. Start Date: 06/26/24 Status: Ordered Quantity: 30.0 Unit: g Repeat number: 1 Orthotics See Instructions, # 1 pair, Refills 3, Tot. Refills 3, Maintenance, diabetic shoes with custom inserts, 01/13/19 12:33:16 PM EDT, Compound Start Date: 01/13/19 Status: Ordered Quantity: 1.0 Unit: pair Repeat number: 4 Indications: Type 2 diabetes mellitus with foot ulcer; oxyCODONE 15 mg oral tablet 1 tablet = 15 mg, By Mouth, 3 times a day, PRN Pain , Mild, TK 1 T PO TID, 0 Refills Start Date: 12/19/18 Status: Ordered Repeat number: 1 pantoprazole 40 mg oral enteric coated tablet 1 tablet = 40 mg, By Mouth, Daily at bedtime, 0 Refills, Maintenance, 05/07/13 3:02:57 PM EDT Start Date: 05/07/13 Status: Ordered Repeat number: 1 Renal Caps oral capsule 1 capsule, By Mouth, Daily, # 30 capsule, 0 Refills, Maintenance, 02/23/25 1:36:00 PM EDT, Capsule, Partial fill upon patient request if the prescription is for a schedule II opioid drug. Start Date: 02/23/25 Status: Ordered Quantity: 30.0 Unit: capsule Repeat number: 1 sevelamer carbonate 800 mg oral tablet 2 tablet = 1,600 mg, By Mouth, 3 times a day with meals, # 90 tablet, 0 Refills, Maintenance, 02/23/25 1:37:00 PM EDT, Tablet, Partial fill upon patient request if the prescription is for a schedule II opioid drug. Start Date: 02/23/25 Status: Ordered Quantity: 90.0 Unit: tablet Repeat number: 1 Trulicity Pen = 4.5 mg, Subcutaneous Injection, Every Sunday, 0 Refills, Maintenance, 04/05/19 12:24:23 PM EDT Start Date: 04/05/19 Status: Ordered Repeat number: 1 ValACYclovir By Mouth, PRN cold sores, 0 Refills, Maintenance, 06/26/24 10:47:00 AM EDT, Partial fill upon patient request if the prescription is for a schedule II opioid drug. Start Date: 06/26/24 Status: Ordered Repeat number: 1 Vitamin D2 50,000 intl units (1.25 mg) oral capsule 1 capsule = 50,000 International_Units, By Mouth, Every Sunday and , 0 Refills, Maintenance, 12/12/21 9:15:00 AM EST, Partial fill upon patient request if the prescription is for a schedule IIopioid drug. Start Date: 12/12/21 Status: Ordered Repeat number: 1 ZyrTEC 10 mg oral tablet 1 tablet = 10 mg, By Mouth, Daily at bedtime, PRN Other, 0 Refills, Maintenance, 12/12/21 9:14:00 AM EST, Partial fill upon patient request if the prescription is for a schedule II opioid drug. Start Date: 12/12/21 Status: Ordered Repeat number: 1 Problem List Condition Confirmation Course Effective Dates Status H ealth Status Informant Diabetes mellitus - adult onset Confirmed Active Hyperlipidemia Confirmed Active Obese class I Confirmed Active Palpitations Confirmed Active Peripheral neuropathy Confirmed Active Social History Social History Type Response Smoking Status Never (less than 100 in lifetime) entered on: 03/28/19 Sex Sex Representation Female (finding) Implantable Device List Procedure Provider Procedure Date Device Type Site Lysis Adhesions Laparoscopic Pablo Gomez MD 08/06/24 Unknown Abdomen Device Identifier Serial Number Lot or Batch Number Manufacturing Date Expiration Date Distinct Identification Code MRI Safety Implantable Status Assigning Authority Unknown Unknown [id number] Unknown 02/11/29 Unknown Unknown Active Unknown Patient Care team information Care Team Personnel Name: Carol Moreno CNM Position: Reference Physician Member Role: Primary Care Nurse Address: [address] [place] [id number] Telecom: Name: Melissa Cotter RN Position: [facility] ED RN W/OE and Tasks Member Role: Primary Care Nurse Name: Edilma Reyes Position: S Outreach Member Role: Lifetime Consulting Physician Name: Meg Ornelas NP Position: S Associate Professional Member Role: Primary Care Nurse Name: Amalia Olmstead NP Position: S Associate Professional Member Role: Primary Care Nurse Address: [address] [place] [id number] Telecom: Name: Elizabeth Meraz RN Position: [facility] RN Member Role: Primary Care Nurse Name: Maame Betancourt RN Position: [facility] RN Member Role: Primary Care Nurse Name: Angela Anton RN Position: [facility] RN Member Role: Primary Care Nurse Name: Maryam Davidson RN Position: [facility] RN Member Role: Primary Care Nurse Name: Jennifer Chavez RN Position: [facility] AMB Nurse Member Role: Primary Care Nurse Name: Niharika Nichols DO Position: Reference Physician Member Role: PCP Address: [address] [place] [address]- Telecom: Name: David Rascon MD Position: [facility] Renal MD Member Role: Lifetime Consulting Physician Address: [address] [facility] [facility] [place] [address]- Telecom: Care Team Related Persons Name: DAYLIN BARBOUR Name: JEFFREY LÓPEZ Name: ZIGGY CHICAS Name: ISI CHICAS Insurance Providers Guarantor name: STEPHANIE ER[facility] [employer] Plan Information #: 1 Payer: [employer] Payer Identifier: ELIAZAR Member Number: [id number] Group Number: [id number] Subscriber Identifier: [id number] Relationship to Subscriber: self Coverage Type: MISCELLANEOUS/OTHER Coverage Verification Date: NA Telecom: NA Address:
--- NOTE | 2025-05-05 14:27 | A.OFFVIS_ITS ---
Vital Signs 05/05/25 14:29 Height 5 ft 3 in Weight 177 lb 7.554 oz BMI 31.4 BP 80/60 L Blood Pressure Location Rt brachial Position Sitting Pulse 96 Pulse Source Pulse Oximeter Pulse Oximetry (%) 100 Oxygen Delivery Method Room Air Intake Visit Reasons: HAWA+ Intake Note: Patiet presents today for a positive HAWA. Accompanied by: Self / Same As Patient Allergies amoxicillin (AMOXICILLIN) Allergy (Intermediate, Verified 04/25/24 08:11) RASH chlorhexidine Allergy (Intermediate, Verified 04/25/24 08:11) Rash rivaroxaban (From XARELTO) Allergy (Intermediate, Verified 04/25/24 08:11) RASH HPI HPI HAWA+: Details: Last visit 01/2023 [facility]. She is on perotoneal dialysis. She has fatigue and joint pain. Fatigue is slowly getting worse. Her BP has been low, which causes daytime sleepiness. 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 She has low BP daily. She has pain in back and hands. She has muscle spasms in calves and hands. She has had muscles spasms daily. Sometimes knuckles are swollen. Hard to get rings on. R sided leg weakness > left sided leg weakness in the last few months. Hard to get up a curb. Pulling up stairs. Chronic pain and tightness in bilateral shoulders. She is going to PT for back and LE strengthening. She is tripping and falling. She fell 3 times in the last 3 month. Dysphagia in anterior chest to food and pills for the 6-8 months. She felt difficult to swallow two tylenol pills. Denies dyspnea or rash. [facility] Medical History (Updated 05/05/25 @ 16:04 by Hank Mcdaniel MD) Kidney disease CKD (chronic kidney disease) Intestinal malabsorption following gastrectomy Gastroparesis IBS (irritable bowel syndrome) Bilateral cataracts Arthritis Degenerative joint disease of low back Fibromyalgia Nephritis Migraine headache Trigeminal neuralgia HTN (hypertension) Chronic pain Anemia Hyperlipidemia Diabetic polyneuropathy Renal insufficiency Type 2 diabetes mellitus Hypothyroidism Surgical History History of intestinal surgery History of vascular surgery History of laparoscopic cholecystectomy History of eye surgery History of sleeve gastrectomy Family History Father No problems noted. Mother COPD (chronic obstructive pulmonary disease) Heart disease Maternal Grandmother Heart disease Sister No problems noted. Social History Alcohol intake: never Patient Tobacco Use Status: Never used Tobacco Physical Exam Vital Signs: Last Vital Signs Pulse 96 05/05/25 14:29 BP 80/60 L 05/05/25 14:29 Pulse Ox 100 05/05/25 14:29 Oxygen Delivery Method Room Air 05/05/25 14:29 BMI result Body Mass Index 31.4 Const Other: General: Comfortable CVS: RRR Respiratory: clear to auscultation bilaterally. Good respiratory effort Skin: Hyperpigmentation left anterior gonzalez MSK: No tenderness of any joints. Bilateral shoulders abduct 160 degrees with full internal external rotation. Normal range of motion of lower extremities. Power 5/5 upper extremities. Power 4/5 hip flexors. Rest of lower extremities is 5/5. Assessment & Plan Assessment & Plan (1) Fatigue: Comment: She has been experiencing hypotension likely contributing to fatigue. Today's blood pressure is 80/60. She is on antihypertensives labetalol 200 mg b.i.d. and hydralazine 25 mg b.i.d. prescribed by Nephrology. Code(s): R53.83 - Other fatigue Category: Medical Plan: I have asked patient to contact Nephrology for medical management of her antihypertensives as she is now symptomatic with hypotension. (2) Lower extremity weakness: Comment: Chronic bilateral proximal muscle weakness of lower extremities of unclear etiology. She has had prior history of left leg weakness, which improved with PT (see rheumatology history). Weakness has progressed to involve right lower extremity. I will be further working up with labs in EMG study. Her diabetes is controlled and patient reports that her hemoglobin A1c was 4 on Trulicity. She reports that thyroid function was tested recently and it was normal. 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 She was lost to follow-up since 2017. Patient has self discontinued hydroxychloroquine. She saw a clinical transformation specialist Dr. Tena from [facility] when she was younger for hip pain. HAWA 1:320 11/2018 with negative anti Root antibody, double-stranded DNA antibody, [employer] anti body and complements. She has had chronic lower back pain since childhood. DJD noted on T-spine to L-spine. No syndesmophytes. MRI pelvis without contrast negative for sacroiliitis. She was admitted at [facility] presenting with left leg weakness due to hip flexor weakness (pectineus and iliopsoas muscle inflammation noted on imaging March 2019 MRI pelvis) of unclear etiology. She had negative antibodies and EMG of lower extremities. Mild elevation in CK and inflammatory markers. ID did not feel she had an infection. Neurology recommended dedicated physiatry/rehab. She worked with [facility] to increase lower extremity strength. General surgery did not recommend iliopsoas biopsy to determine cause of her symptoms due to the risks of open iliopsoas muscle biopsy. She was also admitted at [facility] with reactive arthritis involving her left hip (diagnosed arthrocentesis revealed WCC 35,000 without crystals and culture negative), leukocytosis and fevers. HLA B27 positive. She had a viral illness 2-3 weeks before admission. Pain improved with the prednisone course. NSAIDs caused ARLETH. She also had left anterior gonzalez cellulitis. Last follow-up January 2023 4 right trochanteric bursitis where she received a trochanteric bursa cortisone injection. She developed end-stage renal disease on peritoneal dialysis. Code(s): R29.898 - Other symptoms and signs involving the musculoskeletal system Category: Medical Plan: I have ordered baseline labs including inflammatory markers and muscle enzymes EMG of bilateral lower extremities ordered Bilateral hip x-rays ordered to evaluate for joint pathology [facility] records reviewed Return to clinic in 2 months to review results (3) Dysphagia: Comment: To solids and tablets. She has history of GERD on pantoprazole. Code(s): R13.10 - Dysphagia, unspecified Category: Medical Qualifiers: Dysphagia type: unspecified Qualified Code(s): R13.10 - Dysphagia, unspecified Plan: Barium swallow ordered Return to clinic in 2 months to review results Orders: Orders Erythrocyte Sedimentation Rate Today R29.898 - Other symptoms and signs involving the musculoskeletal system, Z79.899 - Other fci (current) drug therapy Creatine Kinase Total Today R29.898 - Other symptoms and signs involving the musculoskeletal system Aldolase Today R29.898 - Other symptoms and signs involving the musculoskeletal system Alanine Aminotransferase Today R29.898 - Other symptoms and signs involving the musculoskeletal system Creatinine Today R29.898 - Other symptoms and signs involving the musculoskeletal system Complete Blood Count Auto Diff Today R29.898 - Other symptoms and signs involving the musculoskeletal system XR hips PATY min 3V Today R29.898 - Other symptoms and signs involving the musculoskeletal system NE nerve conduction velocity Today R29.898 - Other symptoms and signs involving the musculoskeletal system FL barium swallow Today K21.9 - Gastro-esophageal reflux disease without es ophagitis, R13.10 - Dysphagia, unspecified C Reactive Protein Today R29.898 - Other symptoms and signs involving the musculoskeletal system, Z79.899 - Other fci (current) drug therapy Aspartate Amino Transferase Today R29.898 - Other symptoms and signs involving the musculoskeletal system NE electromyogram (EMG) Today R29.898 - Other symptoms and signs involving the musculoskeletal system Coding Level of Care Code Est Pt Level 5 (29209) Complex EM visit Add On G2211 Diagnoses Fatigue R53.83 Lower extremity weakness R29.898 Dysphagia, unspecified type R13.10 Dysphagia type: unspecified Time Spent (min) 40
[2025-05-05 14:29] VITALS: BP 80/60; PULSE 96; O2SAT 100; BMI 31.4
--- OUTSIDE RECORDS SUMMARY | 2025-05-05 15:34 | XMS_ITS | Patient Health Record ---
Author Organization [facility] Address [address] [address] Care Team Providers Care Hospice Care Sales Consultant Name Role Phone YUMIKO GRIMALDO DO Primary Care Provider Unavail able YONIS RAYA Unavailable [phone] Allergies Allergen (clinical drug ingredient) Drug/Non Drug Allergy documented on EMR Reaction Allergy Type Onset Date Status amoxicillin Amoxicillin Skin Rash Drug Allergy Act kell rivaroxaban Xarelto Skin Rash Drug Allergy Activ e ketorolac Ketorolac Unknown Drug Allergy Active Results Component Value Reference Range Notes TSH reflex to [id number] (No t yet reviewed by provider) Interpretation: Performing Lab:[facility] [place], [address] [place] [address], Phone - [phone], Director - Katerina Notes/Report: TSH 0.420 0.450-4.500 uIU/mL Prolactin-[id number] Reviewed date:12/04/2024 04:36:19 PM Interpretation: Performing Lab:[facility] [place], [address] [place] [address], Phone - [phone], Director - Jodry Notes/Report: Prolactin 21.3 4.8-33.4 ng/mL RPR-[id number] Reviewed date:12/04/2024 04:35:55 PM Interpretation: Performing Lab:[facility], [address] [place] [address], [place], Phone - [phone], Director - Jodry Notes/Report: RPR Non Reactive Non Reactive HBsAg Screen-[id number] Reviewed date:12/04/2024 04:35:48 PM Interpretation: Performing Lab:[facility] [place], [address] [place] [address], Phone - [phone], Director - Jodry Notes/Report: HBsAg Screen Negative Negative HIV Ab/p24 Ag with Reflex-[id number] Reviewed date:12/04/2024 04:35:42 PM Interpretation: Performing Lab:[facility], [address] [place] [address], Phone - [phone], Director - Katerina Notes/Report: HIV Ab/p24 Ag Screen Non Reactive Non Reactive HIV-1/HIV-2 antibodies and HIV-1 p24 antigen were NOT detected. There is no laboratory evidence of HIV infection. HIV Negative HCV Antibody-[id number] Reviewed date:12/04/2024 04:35:35 PM Interpretation: Performing Lab:[facility] [place], [address] [place] [address], Phone - [phone], Director - Katerina Notes/Report: Hep C Virus Ab Non Reactive Non Reactive HCV antibody alone does not differentiate between previously resolved infection and active infection. Equivocal and Reactive HCV antibody results should be followed up with an HCV RNA test to support the diagnosis of active HCV infection. PDF Report Reviewed date:12/04/2024 04:38:06 PM Interpretation: Performing Lab:[facility], [address], [address], [place], Phone - [phone], Director - [facility] Notes/Report: Clinical Information:SRC: CERVICAL FSH+LH+E2 Reviewed date:12/04/2024 04:36:07 PM Interpretation: Performing Lab:[facility] [place], [address] [place] [address], Phone - [phone], Director - Katerina Notes/Report: LH 12.9 Adult Female Range Follicular phase 2.4 - 12.6 Ovulation phase 14.0 - 95.6 Luteal phase 1.0 - 11.4 Postmenopausal 7.7 - 58.5 FSH 8.7 Adult Female Range Follicular phase 3.5 - 12.5 Ovulation phase 4.7 - 21.5 Luteal phase 1.7 - 7.7 Postmenopausal 25.8 - 134.8 Estradiol 15.7 Adult Female Range Follicular phase 12.5 - 166.0 Ovulation phase 85.8 - 498.0 Luteal phase 43.8 - 211.0 Postmenopausal <6.0 - 54.7 1st trimester 215.0 - >4300.0 Kallie ECLIA methodology Chlamydia/GC Amplification Reviewed date:12/04/2024 04:36:36 PM Interpretation: Performing Lab:[facility], [address], [place], Phone - [phone], Director - Bonita Notes/Report: Clinical Information:SRC: CERVICAL Chlamydia trachomatis, JORGE Negative Negative Neisseria gonorrhoeae, JORGE Negative Negative PDF Report Reviewed date:12/04/2024 04:37:53 PM Interpretation: Performing Lab:[facility], [address], [place], Phone - [phone], Director - Katerina Notes/Report: Reason For Referral No Information Medications Medication SIG (Take, Route, Frequency, Duration) Notes Start Date End Date Status Sevelamer Carbonate Active Calcitriol Active Losartan Potassium 50 MG 1 tablet Orally Once a day Active Metoprolol-HCTZ ER A ctive Morphine Sulfate ER 30 MG (Schedule II D rug) TK 1 T PO TID FOR CHRONIC PAIN Oral; Duration: 14 Active oxyCODONE HCl 15 MG (Schedule II Drug) T K 1 T PO TID Oral; Duration: 14 Active Pantoprazole Sodium 40 MG TAKE 1 TABLET BY MOUTH EVERY DAY Oral; Duration: 90 Active Trulicity 4.5 MG/0.5ML INJECT 1 PEN SUBCUTANEOUSLY ONCE A WEEK Subcutaneous Active Vitamin D (Ergocalciferol) 24184 UNIT TAKE 2 CAPS 100,000UNITS BY MOUTH ONCE WEEKLY Oral; Duration: 28 Active Gabapentin 800 MG TAKE 3 TABLETS BY MO UTH DAILY AT BEDTIME Oral; Duration: 30 Active Levothyroxine Sodium 100 MCG TAKE 1 TABLET BY MOUTH EVERY DAY Orally Active Cyclobenzaprine HCl 10 MG TAKE 1 TABLET BY MOUTH EVERYDAY AT BEDTIME Oral; Duration: 90 Active valACYclovir HCl 1 GM TAKE 1 TABLET BY M OUTH EVERY DAY Oral; Duration: 90 PRN Active Social History Tobacco Use: Social History Observation Description Date Details (start date - stop date) Never Smoker NA - NA Tobacco Use/Smoking Question Answer Notes Are you a nonsmoker Sexual History Question Answer Notes Had sex in the past 12 months (vaginal, oral, or anal)? No AUDIT-C (Standard) Question Answer Notes Did you have a drink containing alcohol in the p ast year? No Points 0 Interpretation Negative Problems Problem Type SNOMED Code ICD Code Onset Dates Problem Status W/U Status Risk Notes Problem Cardiomyopathy (82344636) Cardiomyopathy, unspecified (I42.9) Active confirmed Problem End stage renal disease (71233761) End stage renal disease (N18.6) Active confirmed Problem Amenorrhea (59434465) Amenorrhea, unspecified (N91.2) Active confirmed Vital Signs Temperature 98.0 degrees Fahrenheit 12/01/2024 Blood pressure diastolic 70 mm Hg 12/01/2024 Height 65 in 12/01/2024 Blood pressure systolic 128 mm Hg 12/01/2024 Weight 175 lbs 12/01/2024 BMI 29.12 kg/m2 12/01/2024 Encounters Encounter Location Date Provider Diagnosis [address] [place] [address] 12/01/2024 YONIS RAYA Encounter for gynecological examination (general) (routine) without abnormal findings Z01.419 ; Encounter for screening mammogram for malignant neoplasm of breast Z12.31 ; Amenorrhea, unspecified N91.2 and High risk heterosexual behavior Z72.51 Assessments Encounter Date Diagnosis (ICD Code) Assessment Notes Treatment Notes Treatment Clinical Notes Section Notes 12/01/2024 Encounter for gynecological examination (general) (routine) without abnormal findings (ICD-10 - Z01.419) Discussed cervical cancer screening with either cytology alone every 3 years or high risk HPV co-testing every 5 years as per ASCCP guidelines. Advised continued annual pelvic exams. Patient encouraged to increase her level of exercise. SBE technique encouraged/tau ght. Patient reminded when annual mammogram is due. 12/01/2024 Encounter for screening mammogram for malignant neoplasm of breast (ICD-10 - Z12.31) 12/01/2024 Amenorrhea, unspecified (ICD-10 - N91.2) 12/01/2024 High risk heterosexual behavior (ICD-10 - Z72.51) Plan Of Treatment Pending Test Test Name Order Date UA W/REFLEX CULTURE 07/30/2023 URINE CULTURE 07/31/2023 MM Digital Screening Mammogram 3D 2022 MM Digital Screening Mammogram 3D 2024 Chlamydia/GC Amplification-[id number] 2024 TSH reflex to [id number] 12/01/2024 Insurance Providers Payer Name Payer Address Payer Phone Subscriber Number Group Number Insured Name Patient Relationship to Insured Coverage Start Date Coverage End Date MEDICARE [address] [place] [id number] STEPHANIE RAMIREZ Self - patient is the insured Medications Administered Medication Instructions Date of Administration Dosage Notes DEPO PROVERA 08/01/2021 150 mg DEPO PROVERA 11/01/2021 300 mg Medical (General) History Medical History History ICD Code Headache R51 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 9 Disease of gallbladder, unspecified K82. 9 Hypothyroidism, unspecified E03.9 Pure hypercholesterolemia, unspecified E 78.00 Gastro-esophageal reflux disease without esophagitis K21.9 Conjunctival hemorrhage, left eye H11.32 Type 2 diabetes mellitus wit h unspecified diabetic retinopathy without macular edema E11.319 Diabetes mellitus due to und erlying condition with other diabetic kidney complication E08.29 Irritable bowel syndrome with diarrhea K 58.0 End stage renal disease N18.6 Cardiomyopathy, unspecified I42.9 Surgical History Surgery Date(Month/Year) Eye Surgery 05/26/19 Blood Clot Removal from left arm (due to infiltrated IV) 04/2019 Cholecystectomy 2008 Intestine Repair 2000 Diagnostic laparoscopy 2000 Gastric Sleeve 12/2019 total dental extraction 12/23/21 Diagnostic laparoscopy. [place] roscopic lysis of adhesions. Laparoscopic placement of peritoneal dialysis catheter. 08/2024 Hospitalization History Reason Date(Month/Year) Cellulitis/Sepsis 12/2018 Reactive Arthritis 11/2018 See Surgical Hx
--- OUTSIDE RECORDS SUMMARY | 2025-05-05 15:34 | XMS_ITS | Encounter Summary ---
Author Organization [facility] Address [address] [place] [address] Phone Care Team Providers Care Assistant Professor Of Communication Name Role Phone Niharika Nichols DO Primary Care Provider [phone] Encounter Details Date Type Department Care Team (Late st Contact Info) Description 04/30/2025 Orders Only [facility] [address] [place] [phone] Joey Daisy [address] [facility] [address] [place] [phone] Social History Tobacco Use Types Packs/Day Years Used Date Smoking Tobacco: Never Alcohol Use Standard Drinks/Week Comments No 0 (1 standard drink = 0.6 oz pur e alcohol) Comments Unknown Sex and Gender Information Value Date Recorded Sex Assigned at Not on file Legal Sex Female 5:18 PM EST Gender Identity Not on file Sexual Orientation Not on file documented as of this encounter Plan of Treatment Not on file documented as of this encounter Visit Diagnoses Not on filedocumented in this encounter Care Teams Assistant Professor Of Communication Relationship Specialty Start Date End Date Niharika Nichols DO [address] [place] [address] PCP - General Family Medicine 03/28/24 documented as of this encounter
== END 2025-05-05 15:10 | disposition home or self-care (01) ==
PROVIDERS: PCP Family Medicine; Visit Provider Internal Medicine Rheumatology
DX: R53.83 Other fatigue (principal); R29.898 Other symptoms and signs involving the musculoskeletal system; R13.10 Dysphagia, unspecified
CPT/HCPCS: 99215; G2211

== ENCOUNTER 2025-05-05 14:23 | Outpatient (REF) | payer MEDICARE, MEDICAID, SELFPAY ==
[2025-05-05 18:04] LABS: MANUAL DIFF FLAG NO
[2025-05-05 18:12] LABS: Hematocrit 29.0 % (37.0-47.0); Hemoglobin 9.4 g/dl (12.0-16.0); Imm Gran Abs Auto 0.13 X10*3/uL (0.00-0.03); Imm Gran Pct Auto 1.1 % (0.0-0.4); Lymphocytes Absolute Auto 2.1 X10*3/uL (1.2-4.9); Mean Corpuscular HGB Conc 32.4 g/dl (31.0-35.0); Mean Corpuscular Hemoglobin 28.1 pg (27.0-33.0); Mean Corpuscular Volume 86.6 fL (80.0-98.0); NRBC Abs Auto 0.000 X10*3/uL (0.0-0.012); NRBC Pct Auto 0.0 /100WBC (0.0-0.2); Platelet Count 289 X10*3/uL (160-400); Red Blood Count 3.35 X10*6/uL (4.20-5.50); White Blood Count 11.4 X10*3/uL (4.8-10.8)
[2025-05-05 19:32] LABS: Alanine Aminotransferase 25 U/L (0-31); Aspartate Amino Transferase 44 U/L (5-31); Estimated Glomerular Filt Rate 6
== END 2025-05-05 14:24 | disposition home or self-care (01) ==
LOC: HO.HKASLDS 14:23
PROVIDERS: PCP Family Medicine; Visit Provider Internal Medicine Rheumatology
DX: R29.898 Other symptoms and signs involving the musculoskeletal system (principal); R53.83 Other fatigue; R13.10 Dysphagia, unspecified; Z79.899 Other long term (current) drug therapy
CPT/HCPCS: 36415; 82085; 82550; 82565; 84450; 84460; 85025; 85652; 86140; 99212

== ENCOUNTER 2025-05-19 10:03 | Outpatient (REF) | payer SELFPAY ==
--- OUTSIDE RECORDS SUMMARY | 2025-05-20 16:40 | XMS_ITS | Patient Health Record ---
Author Organization [facility] Address [address] [facility] [address] [place] [address] Care Team Providers Care Slinger Sequins Name Role Phone GRIMALDO YUMIKO DALE Primary Care Provider Unavail able YONIS RAYA Unavailable [phone] Allergies Allergen (clinical drug ingredient) Drug/Non Drug Allergy documented on EMR Reaction Allergy Type Onset Date Status amoxicillin Amoxicillin Skin Rash Drug Allergy Act kell rivaroxaban Xarelto Skin Rash Drug Allergy Activ e ketorolac Ketorolac Unknown Drug Allergy Active Results Component Value Reference Range Notes FSH+LH+E2 Reviewed date:12/04/2024 04:36:07 PM Interpretation: Performing Lab:[facility], [address] [facility], Phone - [phone], Director - Katerina Notes/Report: LH 12.9 Adult [...] Amplification Reviewed date:12/04/2024 04:36:36 PM Interpretation: Performing Lab:[facility], [address], [place], Phone - [phone], Director - Bonita Notes/Report: Clinical Information:SRC: CERVICAL Chlamydia trachomatis, JORGE Negative Negative Neisseria gonorrhoeae, JORGE Negative Negative PDF Report Reviewed date:12/04/2024 04:38:06 PM Interpretation: Performing Lab:[facility] [place], [address], [address], [place], Phone - [phone], Director - [facility] Notes/Report: Clinical Information:SRC: CERVICAL HCV Antibody-[id number] Reviewed date:12/04/2024 04:35:35 PM Interpretation: Performing Lab:[facility] [place], [address] [place] [address], Phone - [phone], [facility] - [facility] Notes/Report: Hep C Virus Ab Non Reactive Non Reactive HCV antibody alone does not differentiate between previously resolved infection and active infection. Equivocal and Reactive HCV antibody results should be followed up with an HCV RNA test to support the diagnosis of active HCV infection. HIV Ab/p24 Ag with Reflex-[id number] Reviewed date:12/04/2024 04:35:42 PM Interpretation: Performing Lab:[facility] [place], [address] [place] [address], Phone - [phone], Director - [facility] Notes/Report: HIV Ab/p24 Ag Screen Non Reactive Non Reactive HIV-1/HIV-2 antibodies and HIV-1 p24 antigen were NOT detected. There is no laboratory evidence of HIV infection. HIV Negative HBsAg Screen-[id number] Reviewed date:12/04/2024 04:35:48 PM Interpretation: Performing Lab:[facility] [place], [address] [place] [address], Phone - [phone], Director - [facility] Notes/Report: HBsAg Screen Negative Negative [id number] Reviewed date:12/04/2024 04:35:55 PM Interpretation: Performing Lab:[facility] [place], [address] [place] [address], Phone - [phone], Director - [facility] Notes/Report: RPR Non Reactive Non Reactive Prolactin-[id number] Reviewed date:12/04/2024 04:36:19 PM Interpretation: Performing Lab:[facility] [place], [address] [place] [address], [place], Phone - [phone], [facility] Notes/Report: Prolactin 21.3 4.8-33.4 ng/mL TSH reflex to [id number] (No t yet reviewed by provider) Interpretation: Performing Lab:[facility], [facility], Phone - [phone], Director - Katerina Notes/Report: TSH 0.420 0.450-4.500 uIU/mL PDF Report Reviewed date:12/04/2024 04:37:53 PM Interpretation: Performing Lab:[facility], [facility] [place], Phone - [phone], Director - Katerina Notes/Report: Reason For Referral [...] A WEEK Subcutaneous Active Vitamin D (Ergocalciferol) 94823 UNIT TAKE 2 CAPS 100,000UNITS BY MOUTH [...] Status W/U Status Risk Notes Problem Cardiomyopathy (43999795) Cardiomyopathy, unspecified (I42.9) Active confirmed Problem End stage renal disease (79709025) End stage renal disease (N18.6) Active confirmed Problem Amenorrhea (09864563) Amenorrhea, unspecified (N91.2) Active confirmed Vital Signs Temperature 98.0 degrees Fahrenheit 12/01/2024 Blood pressure diastolic 70 mm Hg 12/01/2024 Height 65 in 12/01/2024 Blood pressure systolic 128 mm Hg 12/01/2024 Weight 175 lbs 12/01/2024 BMI 29.12 kg/m2 12/01/2024 Encounters Encounter Location Date Provider Diagnosis [address] [place] [address] 12/01/2024 YONIS RAYA Encounter for gynecological examination [...] MM Digital Screening Mammogram 3D 2024 Chlamydia/GC Amplification-[id number] 2024 TSH reflex to [id number] 12/01/2024 Insurance Providers Payer Name Payer Address Payer Phone Subscriber Number Group Number Insured Name Patient Relationship to Insured Coverage Start Date Coverage End Date MEDICARE [address] [place] [id number] [phone] [id number] STEPHANIE RAMIREZ Self - patient is the [...]
--- OUTSIDE RECORDS SUMMARY | 2025-05-20 16:40 | XMS_ITS | Clinical Summary ---
Author Organization [facility] Address [address] [facility] [address] [place] [address] Phone Care Team Providers Care Strategic Intelligence Officer Name Role Phone Niharika Nichols DO Primary Care Provider [phone] Allergies Active Allergy Reactions Criticality Noted Date Comments Adhesive Tape 10/31/2023 Other reaction(s): tegaderm-rash Amoxicillin Other (see comments) Medium 06/13/2018 Chlorhexidine Hives,Rash High 04/15/2024 Pt reported on 04/15/24 , Has referral to see a allergy provider. Ketorolac Tromethamine 10/31/2023 Rivaroxaban Other (see comments) 12/30/2020 Medications cetirizine (ZyrTEC) 10 MG tablet Take 1 tablet by mouth 1 (one) time each day Active cyclobenzaprin e (FLEXERIL) 10 MG tablet Active Trulicity 3 MG/0.5ML solution pen-injector 4.5 mL 1 Active ergocalciferol 1.25 MG (52857 UT) capsule Take 1 capsule by mouth 2 (two) times a week Active gabapentin (NEURONTIN) 800 MG tablet Take 1 tablet by mouth 3 (three) times a day Active levothyroxine (SYNTHROID, LEVOTHROID) 150 MCG tablet Take 1 tablet by mouth 1 (one) time each day Active pantoprazole (PROTONIX) 40 MG EC tablet Take 1 tablet by mouth 1 (one) time each day Active oxyCODONE (ROXICODONE) 15 MG immediate release tablet Take 15 mg by mouth in the morning and 15 mg at noon and 15 mg in the evening. 2 Active nystatin (MYCOSTATIN) powder APPLY TO AFFECTED AREA TWICE A DAY 2 Active nystatin (MYCOSTATIN) cream APPLY BY TOPICAL ROUTE TO RASH IN BELLY BUTTON TWICE DAILY. 2 Active morphine (MS CONTIN) 30 MG 12 hr tablet TAKE 1 TABLET BY MOUTH THREE TIMES DAILY FOR CHRONIC PAIN. 2 Active medroxyPROGEST ERone (DEPO-PROVERA) 150 MG/ML injection INJECT 2 ML INTRAMUSCULAR EVERY 3 MONTHS 365 DAYS 2 Active levothyroxine (SYNTHROID, LEVOTHROID) 112 MCG tablet Take 100 mcg by mouth 1 (one) time each day 2 Active cyanocobalamin (VITAMIN B-12) 1000 MCG/ML injection Inject 1,000 mcg under the skin 1 (one) time 1 Active hydrOXYzine (ATARAX) 10 MG tablet TAKE 1 TABLET (10 MG TOTAL) BY MOUTH THREE TIMES A DAY IF NEEDED FOR ITCHING 270 tablet 1 4 Active sevelamer carbonate (Renvela) 800 MG tablet Take 1 tablet (800 mg total) by mouth in the morning and 1 tablet (800 mg total) at noon and 1 tablet (800 mg total) in the evening. Take with meals. Swallow tablet whole; do not crush, break, or chew.. 270 tablet 3 4 09/04/20 25 Active hydrALAZINE 25 MG tablet Take 1 tablet (25 mg total) by mouth in the morning and 1 tablet (25 mg total) in the evening. 180 tablet 4 Active metoprolol succinate XL (Toprol XL) 50 MG 24 hr tablet Take 1 tablet (50 mg total) by mouth 1 (one) time each day Do not crush or chew. 30 tablet 11 4 10/09/20 25 Active B complex-vitami n C-folic acid (NEPHRO-DANIELLE) 0.8 MG tablet TAKE 1 TABLET BY MOUTH EVERY DAY 30 tablet 11 5 Active losartan (Cozaar) 100 MG tablet Take 0.5 tablets (50 mg total) by mouth 1 (one) time each day 45 tablet 3 5 01/15/20 26 Active Active Problems Problem Noted Date Diagnosed Date Stage 5 chronic kidney disease 07/21/2024 Stage 5 chronic kidney disease 06/09/2024 Chronic kidney disease, stage 4 (severe) 024 Peripheral neuropathy 10/31/2023 Obese class I 10/31/2023 10/31/2023 Renovascular hypertension 12/01/2022 Post-surgical malabsorption 12/01/2022 Insulin treated type 2 diabetes mellitus 023 Chronic kidney disease, stage 4 (severe) 022 History of sleeve gastrectomy 03/06/2022 Chronic kidney disease, stage 4 (severe) 022 Renal osteodystrophy 01/10/2022 Stage 3b chronic kidney disease 07/07/2021 Chronic kidney disease due to benign hypertensio n 07/07/2021 Stage 3a chronic kidney disease 05/13/2021 Anemia of chronic renal failure 05/12/2021 Mixed diabetic ulcer - foot 05/12/2021 Morbid obesity 05/12/2021 Renal disorder due to type 2 diabetes mellitus 0 05/12/2021 Chronic kidney disease stage 3 12/30/2020 Trigeminal neuralgia 12/30/2020 Gastroparesis syndrome 12/30/2020 Gastroesophageal reflux disease 12/30/2020 Hyperlipidemia 12/30/2020 Hypertensive disorder 12/30/2020 Hypothyroidism 12/30/2020 Megaloblastic anemia due to vitamin B>12< defici ency 12/30/2020 Mild major depression 12/30/2020 Neuropathy due to diabetes mellitus 12/30/2020 Type 2 diabetes mellitus with renal manifestatio ns 12/30/2020 Systemic lupus erythematosus 12/30/2020 Dislocated intraocular lens 11/23/2020 Overview (05/12/2021): Overview: Added automatically from request for surgery [id number] Renal insufficiency 03/01/2020 Leukemoid reaction 01/23/2019 Microcytic anemia 01/23/2019 Irritable bowel syndrome 10/25/2018 Cobalamin deficiency 05/07/2018 Palpitations 10/02/2017 Overview (05/13/2021): Last Assessment & Plan: Patient states that she has had some residual occasional episodes of palpitations, but they are not overly bothersome to her at this time. She has not been taking a beta-shelly in the past few weeks to months. Tachycardia 09/30/2017 Overview (05/13/2021): Last Assessment & Plan: Reporting heart rates of 90 to 120 according to her Fitbit with higher rates with exercise. We will restart carvedilol 3.125 mg BID with plans to up- titrate as needed. Patient has been unable to come to the office for an EKG due to personal reasons. I recommended wearing 24-hour Holter to evaluate for tachycardia burden however patient does not wish to pursue this at this time. I will obtain echocardiogram to evaluate structures and rule out tachycardia induced cardiomyopathy. Undifferentiated connective tissue disease 09/30 Dysmenorrhea 07/07/2014 Encounters Date Type Department Care Team Description 05/13/2025 Treatment [facility] [address] [place] [address] Isidoro Mullen MD End stage renal disease; Dependence on renal dialysis 04/30/2025 Orders Only [facility] [address] [place] [address] Joey, Daisy 04/29/2025 Treatment [facility] [place] [address] [facility] [address] [place] [address] Isidoro Mullen MD End stage renal disease; Dependence on renal dialysis 03/26/2025 Orders Only [facility] [address] [place] [address] Joey, Daisy 03/25/2025 Treatment [facility] [place] [address] [facility] [address] [place] [address] Isidoro Mullen MD End stage renal disease; Dependence on renal dialysis 02/18/2025 Treatment [facility] [place] [address] [facility] [address] [place] [address] Isidoro Mullen MD End stage renal disease; Dependence on renal dialysis from Last 3 Months Immunizations Immunization Administration Dates Next Due H1N1 Inj 10/11/2009 Hep B, Unspecified 04/23/2024 Influenza (IM) Preservative Free 08/17/2016,07/07 Influenza, MDCK, Quadrivalen t, with preservative 08/20/2019 Influenza, Quadrivalent, Pre servative Free 12/03/2020,08/07/2018,08/20/2017,08/17 Influenza, Quadrivalent, Wit h Preservative 09/01/2019 Influenza, Unspecified 08/18/2014,2011,07/26/2011,07/22,07/13/2009 Pneumococcal Polysaccharide 06/13/2010 Tdap 09/17/2012 Family History Medical History Relation Comments Diabetes Mother Heart disease Mother Hypertension Mother Relation Status Comments Mother Social History Tobacco Use Types Packs/Day Years Used Date Smoking Tobacco: Never Alcohol Use Standard Drinks/Week Comments No 0 (1 standard drink = 0.6 oz pur e alcohol) Comments Unknown Sex and Gender Information Value Date Recorded Sex Assigned at Not on file Legal Sex Female 5:18 PM EST Gender Identity Not on file Sexual Orientation Not on file Last Filed Vital Signs Vital Sign Reading Time Taken Comments Blood Pressure 150/94 09/04/2024 2:34 PM EDT Pulse 93 09/04/2024 2:34 PM EDT Temperature - - Respiratory Rate - - Oxygen Saturation 98% 09/04/2024 2:34 PM EDT Inhaled Oxygen Concentration - - Weight 78.5 kg (173 lb) 09/04/2024 2:34 PM EDT Height 165.1 cm (5' 5 ) 03/05/2020 12:00 PM EDT Body Mass Index 28.79 03/05/2020 12:00 PM EDT Plan of Treatment Health Maintenance Due Date Last Done Comments Hepatitis B Vaccine (1 of 5 - Risk Dialysis 4-dose series) 2002 07/01/2024, 04/23/2024 Pneumococcal Vaccine: Peds ( 0 to 5 Years) and At-Risk Patients (6 to 49 Years) (2 of 2 - PCV) 06/13/2011 06/13/2010 Diabetes: Ophthalmology Exam 12/05/2020 Diabetes: Pedal Pulse Checked 12/05/2020 Diabetes: Sensory Foot Exam 12/05/2020 Diabetes: Visual Foot Exam 12/05/2020 Influenza Vaccine (#1) 2025 3, 09/07/2021, 12/03/2020, Additional history exists Diabetes: Hemoglobin A1C 08/06/2025 05/06/2025, 04/0 02/2025 Pneumococcal Vaccine: 50+ Years Discontinued 0 Procedures Procedure Name Priority Date/Time Associated Diagnosis Comments PD ADEQUECY BUNDLED Routine 05/19/2025 3 :00 AM EDT GLUCOSE, URINE, 24 HOUR Routine 05/06/2025 3:00 AM EDT HEPATITIS C ABS W/REFLEX RNA DETECTR Routine 05/06/2025 3:00 AM EDT CONFIRMATION TEST HCV Routine 05/06/2025 3:00 AM EDT HEMOGLOBIN A1C Routine 05/06/2025 3:00 AM EDT HEPATITIS B SURFACE ANTIGEN W/REFL CONFIRM Routine 05/06/2025 3:00 AM EDT GLUCOSE, RANDOM Routine 05/06/2025 3:00 AM EDT TRANSFERRIN SATURATION Routine 3:00 AM EDT MAGNESIUM Routine 05/06/2025 3:00 AM EDT AST Routine 05/06/2025 3:00 AM EDT BUN/CREATININE RATIO Routine 05/06/2025 3:00 AM EDT ELECTROLYTE PANEL Routine 05/06/2025 3:0 0 AM EDT LIPID PANEL Routine 05/06/2025 3:00 AM EDT LIH (HC) Routine 05/06/2025 3:00 AM EDT CALCIUM PHOSPHORUS PRODUCT, ADJUSTED (HC) Routine 05/06/2025 3:00 AM EDT PROTEIN, TOTAL, SERUM Routine 05/06/2025 3:00 AM EDT ALT Routine 05/06/2025 3:00 AM EDT LACTATE DEHYDROGENASE Routine 05/06/2025 3:00 AM EDT BILIRUBIN, TOTAL Routine 05/06/2025 3:00 AM EDT ALKALINE PHOSPHATASE Routine 05/06/2025 3:00 AM EDT FERRITIN Routine 05/06/2025 3:00 AM EDT PTH, INTACT Routine 05/06/2025 3:00 AM EDT RETICULOCYTES Routine 05/06/2025 3:00 AM EDT CBC AND DIFFERENTIAL Routine 05/06/2025 3:00 AM EDT PD ADEQUECY BUNDLED Routine 05/06/2025 3 :00 AM EDT GLUCOSE, URINE, 24 HOUR Routine 04/22/2025 3:00 AM EDT HEMOGLOBIN Routine 04/22/2025 3:00 AM EDT BUN/CREATININE RATIO Routine 04/22/2025 3:00 AM EDT LIH (HC) Routine 04/22/2025 3:00 AM EDT PD ADEQUECY BUNDLED Routine 04/22/2025 3 :00 AM EDT GLUCOSE, URINE, 24 HOUR Routine 04/09/2025 3:00 AM EDT TRANSFERRIN SATURATION Routine 3:00 AM EDT PROTEIN, TOTAL, SERUM Routine 04/09/2025 3:00 AM EDT ELECTROLYTE PANEL Routine 04/09/2025 3:0 0 AM EDT MAGNESIUM Routine 04/09/2025 3:00 AM EDT LACTATE DEHYDROGENASE Routine 04/09/2025 3:00 AM EDT LIH (HC) Routine 04/09/2025 3:00 AM EDT BILIRUBIN, TOTAL Routine 04/09/2025 3:00 AM EDT BUN/CREATININE RATIO Routine 04/09/2025 3:00 AM EDT GLUCOSE, RANDOM Routine 04/09/2025 3:00 AM EDT AST Routine 04/09/2025 3:00 AM EDT CALCIUM PHOSPHORUS PRODUCT, ADJUSTED (HC) Routine 04/09/2025 3:00 AM EDT ALT Routine 04/09/2025 3:00 AM EDT ALKALINE PHOSPHATASE Routine 04/09/2025 3:00 AM EDT HEPATITIS B SURFACE ANTIGEN W/REFL CONFIRM Routine 04/09/2025 3:00 AM EDT FERRITIN Routine 04/09/2025 3:00 AM EDT PTH, INTACT Routine 04/09/2025 3:00 AM EDT CBC AND DIFFERENTIAL Routine 04/09/2025 3:00 AM EDT PD ADEQUECY BUNDLED Routine 04/09/2025 3 :00 AM EDT HEMOGLOBIN Routine 03/25/2025 3:00 AM EDT HEPATITIS B SURFACE ANTIGEN W/REFL CONFIRM Routine 03/11/2025 3:00 AM EDT PTH, INTACT Routine 03/11/2025 3:00 AM EDT FERRITIN Routine 03/11/2025 3:00 AM EDT PROTEIN, TOTAL, SERUM Routine 03/11/2025 3:00 AM EDT TRANSFERRIN SATURATION Routine 3:00 AM EDT MAGNESIUM Routine 03/11/2025 3:00 AM EDT ELECTROLYTE PANEL Routine 03/11/2025 3:0 0 AM EDT LIH (HC) Routine 03/11/2025 3:00 AM EDT LACTATE DEHYDROGENASE Routine 03/11/2025 3:00 AM EDT BUN/CREATININE RATIO Routine 03/11/2025 3:00 AM EDT GLUCOSE, RANDOM Routine 03/11/2025 3:00 AM EDT BUN Routine 03/11/2025 3:00 AM EDT CREATININE, SERUM Routine 03/11/2025 3:0 0 AM EDT BILIRUBIN, TOTAL Routine 03/11/2025 3:00 AM EDT AST Routine 03/11/2025 3:00 AM EDT ALT Routine 03/11/2025 3:00 AM EDT ALKALINE PHOSPHATASE Routine 03/11/2025 3:00 AM EDT CALCIUM PHOSPHORUS PRODUCT, ADJUSTED (HC) Routine 03/11/2025 3:00 AM EDT CBC AND DIFFERENTIAL Routine 03/11/2025 3:00 AM EDT from Last 3 Months Results * (ABNORMAL) PD Adequecy Bundled (05/06/2025 3:00 AM EDT) Only the most recent of3 resultswithin the time period is included. Urine Volume 400 mL [facility] Collection Interval, Ur 1,440 min [facility] Total Drain Volume 24 Hr 8,259 mL [facility] Patient Height (FT) 164.5 cm [facility] Dry Weight 81.5 kg [facility] Body Surface Area 1.89 m2 [facility] Comment:Body surface area es timated from Ted and Ted formula Total Body Water 36.4 L [facility] Comment:Volume of distributi on estimated from [employer] formula Creatinine 7.19(H) 0.55 - 1.02 mg/dL [facility] BUN 67(H) 7 - 25 mg/dL [facility] Creatinine, Urine 122 mg/dL [facility] Comment:See 24 Hour Urine Cr eatinine for Reference Range in mg/24hr Urea Nitrogen, Ur 479.3 mg/dL [facility] Comment:See 24 Hour Urine Ur ea Nitrogen for Reference Range in g/24hr Creatinine renal clearance 4.3(L) 75.0 - 115.0 mL/min/1. 73m2 [facility] Kt/V, Residual 0.55 [facility] Weekly Residual CrCl 43.5 L/wk/1.73 m2 [facility] Weekly Residual GFR 30.9 L/wk/1.73 m2 [facility] Comment: Calculated by the arithmetic mean of urea and creatinine clearance(Guideline 6 of KDOQI Adequacy 2000) Creat, 24 HR Dial 3.59 mg/dL [facility] Silvino Creat, 24 Hr Dial 3.50 mg/dL [facility] Urea Nitrogen, 24HR Dial 47 mg/dL [facility] Dial KT/V 1.11 [facility] Kt/V, Total 1.66 [facility] Comment: The K/DOQI 2006 recommendations for delivered peritoneal dialysis are: For patients with significant RKF (urine volume >100 mL/day), recommended minimal delivered weekly dose of total (peritoneal and kidney) Kt/V(urea) is greater than or equal to 1.7. For patients without significant RKF (urine volume < or = 100 mL/day), recommended minimal delivered weekly dose of peritoneal Kt/V(urea) is greater than or equal to 1.7. Weekly Dialysate CrCl 25.8 L/wk/1.73 m2 [facility] Weekly Total CRCL 56.7 L/wk/1.73 m2 [facility] Comment:Calculated by adding the GFR and Weekly Dialysate CrCl PNA 58.8 g/day [facility] NPNA (PD) 0.9 g/kg/day [facility] Comment: Providers should strive to achieve an nPNA of greater than or equal to 0.9 g/kg/day. nPNA valid only if protein loss <15 g/day. 05/06/2025 3:00 AM EDT 05/07/2025 12:29 PM EDT us Isidoro Mullen MD LAB BLOOD ORDERABLES Final Resu lt Performing Organization Address City/[facility] Co de Phone Number APS [facility] [address] [place] [address] * Confirmation Test HCV (05/06/2025 3:00 AM EDT) Hep C Ab Confirmation Not needed [facility] 05/06/2025 3:00 AM EDT 05/07/2025 12:33 PM EDT us Isidoro Mullen MD LAB BLOOD ORDERABLES Final Resu lt Performing Organization Address [facility] Co de Phone Number [facility] [address] [place] [address] * LIH (05/06/2025 3:00 AM EDT) Only the most recent of4 resultswithin the time period is included. Lipemia Normal Normal [facility] Icterus Normal Normal [facility] Hemolysis Normal Normal [facility] 05/06/2025 3:00 AM EDT 05/07/2025 12:47 PM EDT us Isidoro Mullen MD LAB [id number] LICITED RESULTS Final Result Performing Organization Address City/[facility]/ZIP Co de Phone Number [facility] [address] [place] [address] * (ABNORMAL) Calcium Phosphorus Product, Adjusted (05/06/2025 3:00 AM EDT) Only the most recent of3 resultswithin the time period is included. [facility] Albumin 2.5(L) 3.6 - 5.4 g/dL [facility] Calcium 7.8(L) 8.6 - 10.3 mg/dL [facility] Phosphorus, Serum 7.4(H) 2.5 - 5.0 mg/dL [facility] Ca*PO4 57.7(A) <55.0 mg2/dL2 [facility] Calcium, Adjusted Total 9.0 8.6 - 10.3 mg/dL [facility] CA*PO4 CORRCTD 66.6(A) <55.0 mg2/dL2 [facility] 05/06/2025 3:00 AM EDT 05/07/2025 12:47 PM EDT us Isidoro Mullen MD LAB [id number] LICITED RESULTS Final Result Performing Organization Address [facility] Co de Phone Number [facility] [address] [place] [address] * HEPATITIS C ABS W/REFLEX RNA DETECTR (05/06/2025 3:00 AM EDT) [facility] Hep C Virus Ab Non-Reacti ve Non-Reacti ve [facility] 05/06/2025 3:00 AM EDT 05/07/2025 12:47 PM EDT us Isidoro Mullen MD LAB [id number] LICITED RESULTS Final Result Performing Organization Address [facility] Co de Phone Number [facility] [address] [place] [address] * Hepatitis B Surface Ag w/Reflex Confirmation (05/06/2025 3:00 AM EDT) Only the most recent of3 resultswithin the time period is included. [facility] Hep B Surface Antigen Negative Negative [facility] 05/06/2025 3:00 AM EDT 05/07/2025 12:47 PM EDT us Isidoro Mullen MD LAB BLOOD ORDERABLES Final Resu lt Performing Organization Address [facility] Co de Phone Number [facility] [address] [place] [address] * BUN/CREATININE RATIO (05/06/2025 3:00 AM EDT) Only the most recent of4 resultswithin the time period is included. Pathologist [facility] BUN/Creatinine Ratio 9.3 <=23.0 [facility] 05/06/2025 3:00 AM EDT 05/07/2025 12:47 PM EDT us Isidoro Mullen MD LAB [id number] LICITED RESULTS Final Result Performing Organization Address [facility] de Phone Number [facility] [address] [place] [address] * (ABNORMAL) TSAT (05/06/2025 3:00 AM EDT) Only the most recent of3 resultswithin the time period is included. Pathologist [facility] Iron 29(L) 50 - 170 ug/dL [facility] Transferrin 58(L) 250 - 380 mg/dL [facility] TIBC 81(L) 211 - 406 ug/dL [facility] Iron Saturation (TSat) 36 22 - 52 % [facility] 05/06/2025 3:00 AM EDT 05/07/2025 12:47 PM EDT us Isidoro Mullen MD LAB BLOOD ORDERABLES Final Resu lt Performing Organization Address [facility] de Phone Number [facility] [address] [place] [address] * Glucose, urine, 24 hour (05/06/2025 3:00 AM EDT) Only the most recent of3 resultswithin the time period is included. Pathologist [facility] Glucose 24 HR Dial 903 mg/dL [facility] 05/06/2025 3:00 AM EDT 05/07/2025 12:39 PM EDT us Isidoro Mullen MD LAB URINE ORDERABLES Final Resu lt Performing Organization Address [facility] Co de Phone Number [facility] [address] [place] [address] * (ABNORMAL) Reticulocytes (05/06/2025 3:00 AM EDT) [facility] Reticulocyte 2.8(H) 0.5 - 1.7 % [facility] Retic Ct Pct 33.2 28.2 - 35.7 pg [facility] 05/06/2025 3:00 AM EDT 05/07/2025 12:33 PM EDT us Isidoro Mullen MD LAB BLOOD ORDERABLES Final Resu lt Performing Organization Address [facility] de Phone Number [facility] [address] [place] [address] * (ABNORMAL) CBC and Differential (05/06/2025 3:00 AM EDT) Only the most recent of3 resultswithin the time period is included. [facility] DIFFERENTIAL MANUAL, 2 Not Indicated [facility] White Blood Cells 10.3(H) 4.0 - 10.0 K/uL [facility] RBC 3.12(L) 3.93 - 5.22 M/uL [facility] Hgb 8.8(L) 11.2 - 15.7 g/dL [facility] Hemoglobin x 3 26.4(L) 33.6 - 47.1 g/dL [facility] Hematocrit 27.6(L) 34.1 - 44.9 % [facility] MCV 88.5 79.4 - 94.8 fL [facility] MCH 28.2 25.6 - 32.2 pg [facility] MCHC 31.9(L) 32.2 - 35.5 g/dL [facility] RDW 13.9 11.7 - 14.4 % [facility] Platelets 276 182 - 369 K/uL [facility] Neutrophils Relative 69.9 34.0 - 71.1 % [facility] Lymphocytes Relative 17.7(L) 19.3 - 51.7 % [facility] Monocytes 6.7 4.7 - 12.5 % [facility] Eosinophils Relative 2.9 0.7 - 5.8 % [facility] Basophils Relative 0.7 0.1 - 1.2 % [facility] Immature Granulocytes 2.1(H) 0.0 - 1.0 % [facility] 05/06/2025 3:00 AM EDT 05/07/2025 12:33 PM EDT us Isidoro Mullen MD LAB BLOOD ORDERABLES Final Resu lt Performing Organization Address [facility]/ZIP Co de Phone Number [facility] [address] [place] [address] * ALT (05/06/2025 3:00 AM EDT) Only the most recent of3 resultswithin the time period is included. ALT (SGPT) 24 10 - 49 U/L [facility] 05/06/2025 3:00 AM EDT 05/07/2025 12:47 PM EDT us Isidoro Mullen MD LAB BLOOD ORDERABLES Final Resu lt Performing Organization Address [facility] Co de Phone Number [facility] [address] [place] [address] * (ABNORMAL) AST (05/06/2025 3:00 AM EDT) Only the most recent of3 resultswithin the time period is included. AST (SGOT) 40(H) <34 U/L [facility] 05/06/2025 3:00 AM EDT 05/07/2025 12:47 PM EDT us Isidoro Mullen MD LAB BLOOD ORDERABLES Final Resu lt Performing Organization Address [facility] Co de Phone Number [facility] [address] [place] [address] * (ABNORMAL) Protein, total (05/06/2025 3:00 AM EDT) Only the most recent of3 resultswithin the time period is included. Total Protein 5.6(L) 6.4 - 8.9 g/dL [facility] 05/06/2025 3:00 AM EDT 05/07/2025 12:47 PM EDT us Isidoro Mullen MD LAB BLOOD ORDERABLES Final Resu lt Performing Organization Address [facility] Co de Phone Number [facility] [address] [place] [address] * (ABNORMAL) Alkaline phosphatase (05/06/2025 3:00 AM EDT) Only the most recent of3 resultswithin the time period is included. Alkaline Phosphatase 169(H) 46 - 116 U/L [facility] 05/06/2025 3:00 AM EDT 05/07/2025 12:47 PM EDT us Isidoro Mullen MD LAB BLOOD ORDERABLES Final Resu lt Performing Organization Address [facility] de Phone Number [facility] [address] [place] [address] * PTH, Intact (05/06/2025 3:00 AM EDT) Only the most recent of3 resultswithin the time period is included. PTH, Intact 396 160 - 721 pg/mL [facility] Comment: Suggested (KDIGO) ESRD maintenance range is two to nine times the upper normal limit (80.1 pg/mL) for the laboratory. 05/06/2025 3:00 AM EDT 05/07/2025 12:47 PM EDT us Isidoro Mullen MD LAB BLOOD ORDERABLES Final Resu lt Performing Organization Address [facility] Co de Phone Number [facility] [address] [place] [address] * Magnesium (05/06/2025 3:00 AM EDT) Only the most recent of3 resultswithin the time period is included. Magnesium 2.1 1.9 - 2.7 mg/dL [facility] 05/06/2025 3:00 AM EDT 05/07/2025 12:47 PM EDT us Isidoro Mullen MD LAB BLOOD ORDERABLES Final Resu lt Performing Organization Address [facility] Co de Phone Number [facility] [address] [place] [address] * (ABNORMAL) Lactate dehydrogenase (05/06/2025 3:00 AM EDT) Only the most recent of3 resultswithin the time period is included. LDH 429(H) 120 - 246 U/L [facility] 05/06/2025 3:00 AM EDT 05/07/2025 12:47 PM EDT us Isidoro Mullen MD LAB BLOOD ORDERABLES Final Resu lt Performing Organization Address [facility] de Phone Number [facility] [address] [place] [address] * Hemoglobin A1c (05/06/2025 3:00 AM EDT) Hemoglobin A1C 5.1 <5.7 % [facility] Comment: Methodology: Enzymatic Normal: <5.7% Prediabetes: 5.7-6.4% Diabetes: >6.4% Diabetic Glucose Control Evaluation: Therapeutic action suggested at >8.0% ADA recommends a glycemic goal of <7.0% 05/06/2025 3:00 AM EDT 05/07/2025 12:33 PM EDT us Isidoro Mullen MD LAB BLOOD ORDERABLES Final Resu lt Performing Organization Address [facility] Co de Phone Number [facility] [address] [place] [address] * (ABNORMAL) Glucose, random (05/06/2025 3:00 AM EDT) Only the most recent of3 resultswithin the time period is included. Glucose 174(H) 70 - 99 mg/dL [facility] Comment: ADA guidelines outline the following fasting glucose ranges: Normal: <100 Prediabetes: 100-125 Diabetes: >125 05/06/2025 3:00 AM EDT 05/07/2025 12:47 PM EDT us Isidoro Mullen MD LAB BLOOD ORDERABLES Final Resu lt Performing Organization Address City/[facility] Co de Phone Number [facility] [address] [place] [address] * (ABNORMAL) Ferritin (05/06/2025 3:00 AM EDT) Only the most recent of3 resultswithin the time period is included. Ferritin 664(H) 10 - 291 ng/mL [facility] 05/06/2025 3:00 AM EDT 05/07/2025 12:47 PM EDT us Isidoro Mullen MD LAB BLOOD ORDERABLES Final Resu lt Performing Organization Address [facility] de Phone Number [facility]PS [facility] [address] [place] [address] * (ABNORMAL) Bilirubin, total (05/06/2025 3:00 AM EDT) Only the most recent of3 resultswithin the time period is included. Total Bilirubin <0.2(L) 0.3 - 1.2 mg/dL [facility] 05/06/2025 3:00 AM EDT 05/07/2025 12:47 PM EDT us Isidoro Mullen MD LAB BLOOD ORDERABLES Final Resu lt Performing Organization Address [facility] de Phone Number [facility] [address] [place] [address] * (ABNORMAL) Lipid panel (05/06/2025 3:00 AM EDT) Cholesterol 100 mg/dL [facility] Comment: Optimal: <200 Borderline: 200-239 High Risk: >239 Triglycerides 141 mg/dL [facility] Comment: Optimal: <150 Borderline: 150-200 High Risk: >200 HDL 42(L) mg/dL [facility] Comment: Optimal: >59 Borderline: 40-59 High Risk: <40 LDL-Calc 30 mg/dL [facility] Comment: Optimal: <100 Borderline: 100-159 High Risk: >159 VLDL Cholesterol Tad 28 mg/dL [facility] Comment: Optimal: <30 Borderline: 30-40 High Risk: >40 Chol/HDL Ratio 2.4 [facility] Comment: Optimal: <3.3 High Risk: >6.2 05/06/2025 3:00 AM EDT 05/07/2025 12:47 PM EDT us Isidoro Mullen MD LAB BLOOD ORDERABLES Final Resu lt Performing Organization Address [facility] Co de Phone Number [facility] [address] [place] [address] * (ABNORMAL) Electrolyte panel (05/06/2025 3:00 AM EDT) Only the most recent of3 resultswithin the time period is included. Sodium 137 136 - 145 mEq/L [facility] Potassium 3.6 3.4 - 5.0 mEq/L [facility] Chloride 96(L) 98 - 107 mEq/L [facility] Bicarbonate (CO2) 27 21 - 31 mEq/L [facility] Anion Gap 14 3 - 14 mEq/L [facility] 05/06/2025 3:00 AM EDT 05/07/2025 12:47 PM EDT us Isidoro Mullen MD LAB BLOOD ORDERABLES Final Resu lt Performing Organization Address [facility] Co de Phone Number [facility] [address] [place] [address] * (ABNORMAL) Hemoglobin (04/22/2025 3:00 AM EDT) Only the most recent of2 resultswithin the time period is included. Hgb 8.8(L) 11.2 - 15.7 g/dL [facility] Hemoglobin x 3 26.4(L) 33.6 - 47.1 g/dL [facility] 04/22/2025 3:00 AM EDT 04/23/2025 1:05 PM EDT us Isidoro Mullen MD LAB BLOOD ORDERABLES Final Resu lt Performing Organization Address [facility] de Phone Number [facility] [address] [place] [address] * (ABNORMAL) BUN (03/11/2025 3:00 AM EDT) BUN 42(H) 7 - 25 mg/dL [facility] 03/11/2025 3:00 AM EDT 03/12/2025 3:09 PM EDT us Isidoro Mullen MD LAB BLOOD ORDERABLES Final Resu lt Performing Organization Address [facility] de Phone Number [facility] [address] [place] [address] * (ABNORMAL) Creatinine, serum (03/11/2025 3:00 AM EDT) Creatinine 5.52(H) 0.55 - 1.02 mg/dL [facility] 03/11/2025 3:00 AM EDT 03/12/2025 3:09 PM EDT us Isidoro Mullen MD LAB BLOOD ORDERABLES Final Resu lt Performing Organization Address [facility] de Phone Number [facility] [address] [place] [address] from Last 3 Months Insurance Unit [address] [place] [id number] [place] Care Teams Strategic Intelligence Officer Relationship Specialty Start Date End Date Niharika Nichols DO [address] [place] [id number] PCP - General Family Medicine 03/28/24
--- OUTSIDE RECORDS SUMMARY | 2025-05-20 16:41 | XMS_ITS | Data Portability ---
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 Dentist [place] [facility] Solar [employer] Crew Lead [phone] IGNACIO BORGES Bariatric Surgeon [phone] OSCAR HUSSEIN Orthopedic Surgeon [phone] STORMY RUSSO Sports Medicine CARMINE IYER Neurologist [facility] [employer] Crew Lead MAURICE UMANA Quoter [phone] MAINE CARDENAS In [employer] [facility] Pain Management Assessment Encounter Date Assessment Date Assessment LastModified by Organization Details LastModified Time 11/13/2024 11/13/2024 Assessment and Plan End Stage Renal Disease on Dialysis Recent changes in dialysis regimen and medications due to fluid retention and hypertension. Dialysis clinic recently adjusted medications and the dialysis treatment. -Continue current dialysis regimen and medications as directed by dialysis clinic. -Expecting recent labs from dialysis clinic, will review upon receipt. Hypertension Recent increase in blood pressure readings, leading to adjustment of medications by dialysis clinic. Losartan dose recently doubled. -Continue monitoring blood pressure daily at home. -Continue Losartan at the new dose as directed by dialysis clinic. Gastroesophageal Reflux Disease Out of Protonix (pantoprazole), which is effective in managing symptoms. -Advise patient to request a refill from the prescribing provider (Dr. Umana) through the pharmacy. General Health Maintenance -Annual mammogram due, last done at [facility] last year. -Order mammogram. -Annual eye exam due, last done in 2021. -Advise patient to schedule eye exam. -Physical exam scheduled for next month. Follow-up in 1 month. [email or web address] Not available 11/13/2024 14:57:41 12/09/2024 12/09/2024 Assessment and Plan Hypertension Hypertension secondary to kidney failure with fluctuating blood pressure. Adjustments in dialysis and medication ongoing for optimal control. - Discuss blood pressure management with dialysis clinic today - Adjust dialysis regimen as needed to stabilize blood pressure Chronic Kidney Disease on Dialysis On dialysis due to kidney failure. Dialysis regimen adjustments ongoing to manage blood pressure and other parameters. Anemia managed with EPO shots and iron infusions. - Continue monthly lab draws at dialysis clinic - Maintain current dialysis regimen with adjustments as needed - Continue EPO shots and iron infusions for anemia management labs rev from dialysis comp, cbc, lipids Thyroid Hormone Overmedication Recent labs indicate overmedication with thyroid hormone. Specific levels not available during visit. - Obtain thyroid hormone levels from OBGYN - Adjust thyroid medication based on lab results General Health Maintenance Up to date with Pap smear. Mammogram scheduled. Vaccinations current. Transplant team ensures timely cancer screenings. Requires documentation for radiology program application. - Ensure mammogram is completed as scheduled - Obtain vaccine record from transplant team - Provide documentation of physical exam and vaccinations for radiology program application Follow-up Will follow up in a few months for Medicare visit. Ongoing communication with dialysis clinic for blood pressure management. - Schedule follow-up visit in a few months for Medicare check-up - Maintain communication with dialysis clinic for ongoing management Not available 12/09/2024 14:16:39 01/19/2025 01/19/2025 Assessment and Plan Hypertension Hypertension secondary to kidney failure with fluctuating blood pressure. Adjustments in dialysis and medication ongoing for optimal control. - BP hypotensive at today's visit with patient reporting recent changes in antihypertensive regimen. Chronic Kidney Disease on Dialysis On dialysis due to kidney failure. Dialysis regimen adjustments ongoing to manage blood pressure and other parameters. Anemia managed with EPO shots and iron infusions. - Continue monthly lab draws at dialysis clinic - Maintain current dialysis regimen with adjustments as needed - Continue EPO shots and iron infusions for anemia management labs rev from dialysis comp, cbc, lipids [email or web address] Not available 01/19/2025 13:22:40 04/03/2025 04/03/2025 We completed you Medicare Wellness exam today. This was an opportunity to assess your overall well being including your ability to care for yourself, your mobility, memory, mental health, as well as your safety. With advancing age, it is important to assign someone in your life as your Health Care Proxy (HCP). This person should know what is important to you and what your wishes are for medical procedures if you cannot communicate your wishes yourself (severe illness, unconsciousness). We discussed having a completed Health Care Proxy form today. In addition, today we started a conversation about your End of Life wishes. These conversations will continue over the years. Please consider reading the book, Being Mortal by Imer Escoto to help frame future conversations. We discussed the purpose of a MOLST form (Medical Orders for Life Sustaining Treatment) and completed this form if appropriate per your wishes. Vision and Hearing are senses that are critically important as we age. When impaired, they can contribute to memory loss, falls, and make it harder to drive, talk to family and friends, and engage in the world. Please get your vision checked yearly and your hearing checked when you start to notice hearing loss. We discussed approaches to lowering your risk of heart disease and stroke . Your blood pressure is higher than goal consider losing weight and lowering your salt intake. Your cholesterol is at goal. We discussed cancer screening you may need as well as vaccines to prevent infections. Colon Cancer : Your risk of colon cancer is . Due for colorectal screenin. If you are not planning to have a colonoscopy please screen with stool cards yearly. Breast Cancer : Breast Cancer Screening (mammography). Next mammogram due: 2024. Cervical Cancer Screening (pap test). Next pap due: 2028. Influenza Vaccine : Flu shot yearly. Tetanus Vaccine : Every 10 years. Due: 2032. The following vaccines are available from your pharmacy: Pneumonia Vaccine : PCV20: once after age 65. Shingles Vaccine : 2 shots after age 50. Covid Vaccine : Make sure you have received the most up to date covid vaccine. Your personal health goal for the year is: Assessment and Plan End-stage renal disease on dialysis Well-controlled blood pressure. Increased daytime fatigue. Elevated phosphorus levels due to non-compliance with phosphorus binder. Low protein intake affecting LB1 levels. On transplant list with 3-5 year wait due to type O blood. - Request dialysis center to send recent lab results. - Encourage compliance with phosphorus binder before meals. - Increase protein intake to address low LB1 levels. - Monitor blood pressure and adjust fluid intake as needed. Gastroesophageal reflux disease (GERD) Exacerbation due to running out of pantoprazole refills. Previous prescriptions managed by GI specialist who may be unavailable. - Prescribe pantoprazole for GERD management. Peripheral neuropathy Managed with gabapentin. Self-adjusted dosage to 800 mg at night, occasionally two tablets for severe symptoms. Reports feeling like on morphine with higher doses, leading to self-reduction. - Continue gabapentin at adjusted dosage of 800 mg, one tablet at night, with option to increase to two tablets if needed. Mild depression Possibly related to overall health stress. Difficulty staying asleep, potentially due to back pain. Undergoing physical therapy for back issues. - Encourage continuation of physical therapy for back pain. General Health Maintenance Up to date on cancer screenings and mammograms. Needs eye exam. Thyroid function not recently checked. - Schedule eye exam. - Check thyroid function. [email or web address] Not available 04/03/2025 15:11:41 Plan of Treatment Reminders Order Date Submit Date Provider Last Modified By Organization Details Last Modified Time Details Appointments LAB Follow-U p 2024 04:00P M [facility] Lab Not available Not available Not available Medical Manageme nt 15 2024 02:30P M Catrina Nichols, DO Not available Not available Not available LAB Follow-U p 2025 04:00P M [facility] Lab Not available Not available Not available Wellness Visit 30 2025 03:30P Puja Nichols, DO Not available Not available Not available Lab lipid panel, serum 2024 025 [facility], [address] [place] [address], [id number], 05/07/2025 12:52:54 TSH, serum or plasma 2024 025 [facility], [address] [place] [address], [id number], 05/07/2025 12:52:54 Referral None recorded . Procedures None recorded . Surgeries None recorded . Imaging XR, lumbar spine - fell out of bed 2 weeks ago. Hx compress ion fx. 2024 025 [facility] (Imaging), [address], [place], [address], 01/19/2025 14:14:59 MAMMO, screenin g, tomosynt hesis bilbibia l - 2nd Look Consult/ Diag Mammo/US Breast/G uided Asp/[place] st Bx/Clip Placemen t, as clinical ly indicate d. 2024 025 [facility] (Imaging), [address], [place], [address], 01/09/2025 21:25:28 Medication Orders pantopra zole 40 mg tablet,d elayed release 2024 025 [facility]-[id number] [address] [place] [address]/Pharmacy #[id number], [address] [place], [address], 04/17/2025 20:27:55 doxycycl ine hyclate 100 mg capsule 2024 025 [facility]/Pharmacy #[id number], [address] [place], [address], 04/03/2025 11:15:51 Patient TargetsNo targets recorded. Patient InstructionsNo instructions recorded. Reason for Referral None Reported. Results Created Date Observation Date Name Description Value Unit Range Abnormal Flag Note LastModifiedBy Organization Detail LastModifiedTime 01/10/20 25 01/09/2025 MAMMO , scree ethan, tomos ynthe sis, bilat eral MAMMO, SCREEN , KAR, BILAT: 01/10/20 25. BI-RAD S: 1 CLINIC AL: 44-yea r old Female for Bilate ral Screen ing Mammog anne. [facility] lifeti me risk of 7.4%. No person al or first- degree family histor y of breast cancer . PRIOR EXAMS: Review ed previo us images from 2023. MAMMOG RODRICK TECHNI QUE: 3D mammog rodrick (tomos ynthes is) and 2D mammog rodrick (C-vie w) images are genera maru. Images review ed with a CAD system . DENSIT Y B. There are scatte red areas of fibrog landul ar densit y. MAMMOG RODRICK FINDIN GS Bilate ral: No suspic ious mass, asymme try, microc alcifi cation , or other abnorm ality seen. CONCLU SIONNo eviden ce of malign piotr. RECOMM ENDATI ONS Bilate ralAnn ual screen ing mammog rodrick. ADMINI STRATI VE: A lay summar y was mailed to your patien t stephen kangg the result s and recomm endati ons for follow -up. OVERAL L ASSESS MENT CATEGO RY BI-RAD S-1: Negati ve. The [employer] e [employer] ogy recomm ends annual screen ing mammog rodrick beginn ing at age 40 for women with averag e risk of breast cancer . ELECTR ONICAL LY SIGNED : Harry Monte ms, M.D. on 2024 at 09:24: 26 PM Romaine aden Physic brigida: Harry Monte ms [facility] (Imaging) [address], [place], [address], 01/12/2025 08:59:12 01/20/20 25 01/19/2025 XR, lumba r spine CLINIC AL HISTOR Y: Low back pain, fell out of bed 2 weeks ago. Histor y of compre ssion fractu re TECHNI QUE: 3 views, 4 images . COMPAR ANGELINA: Thorac ic spine radiog raph 3. FINDIN GS: The bones appear mildly underm ineral ized. No substa ntial lumbar verteb ral body compre ssion deform ity seen. Mild radiog raphic degene rative disc/e ndplat e change s. Some degene rative facet joint change s, most pronou nced within the lower lumbar spine. No spondy lolist hesis seen. Some athero sclero tic calcif icatio ns within the abdomi nal aorta. IMPRES WENDY: Some degene rative change s within the lumbar spine. Please see body of report . Romaine aden Physic brigida: Kristofer Steen [facility] (Imaging) [address] , [place], [address], 01/21/2025 10:02:33 Result Notes Documentation Provider Name and Address Organization Details Recorded Time Mammo, Screening, Tomosynthesis, Bilateral : MAMMO, SCREEN, KAR, BILAT: 01/09/2025. BI-RADS: 1 CLINICAL: 44-year old Female for Bilateral Screening Mammogram. Tyrer-Cuzick lifetime risk of 7.4%. No personal or first-degree family history of breast cancer. PRIOR EXAMS: Reviewed previous images from 2023. MAMMOGRAPHY TECHNIQUE: 3D mammography (tomosynthesis) and 2D mammography (C-view) images are generated. Images reviewed with a CAD system. DENSITY B. There are scattered areas of fibroglandular density. MAMMOGRAPHY FINDINGS Bilateral: No suspicious mass, asymmetry, microcalcification, or other abnormality seen. CONCLUSIONNo evidence of malignancy. RECOMMENDATIONS BilateralAnnual screening mammography. ADMINISTRATIVE: A lay summary was mailed to your patient indicating the results and recommendations for follow-up. OVERALL ASSESSMENT CATEGORY BI-RADS-1: Negative. The [employer] recommends annual screening mammography beginning at age 40 for women with average risk of breast cancer. ELECTRONICALLY SIGNED: Shane Garcia M.D. on 01/09/2025 at 09:24:26 PM Reading Physician: Shane Hayes RN [facility], [facility] 01/12/2025 08:59:12 Xr, Lumbar Spine : CLINICAL HISTORY: Low back pain, fell out of bed 2 weeks ago. History of compression fracture TECHNIQUE: 3 views, 4 images. COMPARISON: Thoracic spine radiograph 09/13/23. FINDINGS: The bones appear mildly undermineralized. No substantial lumbar vertebral body compression deformity seen. Mild radiographic degenerative disc/endplate changes. Some degenerative facet joint changes, most pronounced within the lower lumbar spine. No spondylolisthesis seen. Some atherosclerotic calcifications within the abdominal aorta. IMPRESSION: Some degenerative changes within the lumbar spine. Please see body of report. Reading Physician: Kristofer DAWSON, DO [address] [place] [address], [phone], [facility] 01/20/2025 07:49:08 Problems Name Problem SNOMED Code Status Onset Date Resolution Date Notes Provider Name and Address Organization Details Recorded Time Primary fibromya lgia syndrome 66166565 Completed 11/12/2013 Emma Bower NP [address] [place] [address], [address] , [facility] 6 11:38:09 Migraine 51590511 Completed 201011/12/2013 Emma Bower NP [address] [place] [address], [address] , [facility] 6 11:38:09 Renal disorder due to type 2 diabetes mellitus 098972044 Active 2009 Not Available [facility] 2 08:43:41 Trigemin al neuralgi a 71447047 Completed 200911/12/2013 Emma Bower NP [address] [place] [address], [address] , [facility] 0 11:09:07 Dysphagi a 24219589 Completed 201011/12/2013 Emma Bower NP [address] [place] [address], [address] , [facility] 6 11:38:09 Lupus erythema tosus 842474848 Active 2009 Not Available [facility] 2 08:43:41 Diabetic on insulin 267720316 Completed 12/09/2024 on Johnny Nichols, DO [address] [place] [address], [address] , [facility] 5 13:59:13 C-reacti ve protein outside referenc e range 577502653 Completed 11/12/2013 Emma Bower NP [address] [place], [address] , [facility] 6 11:38:09 Anxiety 89659702 Completed 200811/12/2013 Emma Bower NP [address] [place], [address] , [facility] 6 11:38:09 Tachycar georgina 3220681 Completed 201011/12/2013 Emma Bower NP [address] [place], [address] , [facility] 6 11:38:09 Retentio n of urine 220419079 Completed 200911/12/2013 Emma Bower NP [address] [place], [address] , [facility] 6 11:38:09 History of depressi on 948677898 Completed 01/28/2014 Emma Bower NP [address] [place], [address] , [facility] 6 11:38:09 Dysuria 90011099 Completed 201011/12/2013 Emma Bower NP [address] [place], [address] , [facility] 6 11:38:09 Nephriti s 54467963 Completed 11/12/2013 Emma Bower NP [address] [place], [address] , [facility] 6 11:38:09 Spasm of back muscles 953531378 Completed 201011/12/2013 Emma Bower NP [address] [place], [address] , [facility] 6 11:38:09 Vitamin D deficien cy 47944929 Completed 201011/12/2013 Emma Bower NP [address] [place], [address] , [facility] 6 11:38:09 Hypocalc emia 2886518 Completed 11/12/2013 Emma Bower NP [address] [place] [address], , [facility] 6 11:38:09 Blood coagulat ion disorder 55901191 Active 2008 Not Available [facility] 2 08:43:41 Major depressi on, melancho lic type 826965876 Completed 05/03/2018 Emma Bower NP [address] [place] [address], , [facility] 8 14:10:21 Obesity 582888957 Completed 12/11/2018 Emma Bower NP [address] [place] [address], , [facility] 9 19:43:58 Essentia l hyperten wendy 87931175 Completed 05/03/2018 Emma Bower NP [address] [place] [address], , [facility] 8 14:12:14 Mild major depressi on 44695635 Active 2018 coded 01/08/19 Followup Not Available [facility] 2 08:43:41 Trigemin al neuralgi a 66329598 Active 2019 Not Available [facility] 2 08:43:41 Chronic kidney disease stage 3 970665130 Completed 202007/23/2024 Most recent GFR = 32, 02/22/21 [facility] lab results. 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 693149765 Active 2021 Emma Bower, MIGUEL [address] [place] [address], [address] , [facility] 2 20:01:34 Anemia in chronic kidney disease 160687961 Active 2023 Catrina Nichols DO [address] [place], [address] , [facility] 4 11:17:07 Chronic kidney disease stage 4 583754399 Completed 202307/23/2024 per recent nephrolo gy note from 04/28/24 Charlene Jose RN null, [facility] 4 17:02:08 Case manageme nt Active 2023 [facility] Care Manageme nt Charlene Jose RN null, [facility] 4 17:17:54 Acquired kyphosis 719154773 Active 2022 Per consult note MD Charlene Dunbar RN null, [facility] 4 14:27:37 Displace ment of lumbar interver tebral disc without myelopat hy 57380895 Active 2022 Per consult note MD Charlene Dunbar RN null, [facility] 4 14:28:31 Fibromya lgia 274496161 Active 2022 Per consult note MD Charlene Dunbar RN null, [facility] 4 14:29:01 Human leukocyt e antigen B27 detected 874793720 Active 2021 Per consult [facility] 10/02/22 Charlene Jose RN null, [facility] 4 14:43:04 Prolifer ative retinopa thy due to diabetes mellitus 66150541 Active 2021 Per consult note [facility] Charlene Jose RN null, [facility] 4 14:44:21 Cardiomy opathy 83093271 Active 2023 Per consult note [facility], mild Charlene Jose RN null, [facility] 4 14:52:03 Excess pannicul us of abdomen 68987816450 01 Active 2023 Consult note Louie Evans, DO Charlene Jose RN null, [facility] 4 15:02:27 Intertri go 64044421 Active 2023 Consult note Louie Evans, DO Charlene Jose RN null, [facility] 4 15:03:04 Chronic kidney disease stage 5 497498321 Active 2023 Per consult note Tania Jose RN null, [facility] 4 16:58:20 Metaboli c bone disease 97240797 Active 2023 Per consult note Tania Lennon 07/21/24, of chronic kidney disease Charlene Jose RN null, [facility] 4 17:01:20 Renovasc ular hyperten wendy 851246678 Active 2023 Per consult note Ignacio Ferrer MD 08/06/24 Charlene Jose RN null, [facility] 5 16:00:03 Intestin al malabsor ption 445167871 Active 2023 Per consult note gInacio Ferrer MD 08/06/24 Charlene Jose RN null, [facility] 5 16:01:58 Neck pain 01340329 Active 2024 Per consult note MD Charlene Dunbar RN null, [facility] 5 14:42:45 Low back pain 916248412 Active 202403/13/25 pain mgmt consult Alessandro Hayes RN null, [facility] 5 15:51:21 Mixed hyperlip idemia 634568588 Active 2008 Not Available [facility] 2 08:43:41 Contusio n of face, scalp and neck, excludin g eye(s) Completed 200704/29/2012 Emma Bower NP [address] [place], [address] , [facility] 6 11:38:09 Diabetes mellitus 98205968 Completed 04/29/2012 Emma Bower NP [address] [place] [address], , [facility] 6 11:38:09 Gastroes ophageal reflux disease 862077465 Active Not Available [facility] 2 08:43:41 Palpitat ions 70960109 Completed 04/29/2012 Emma Bower NP [address] [place] [address], , [facility] 6 11:38:09 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 80531277 Completed 01/08/2019 Emma Bower NP [address] [place] [address], , [facility] 9 19:29:52 Benign essentia l hyperten wendy 6992686 Active Not Available [facility] 2 08:43:41 Disturba nce of consciou sness 7476543 Completed 200704/29/2012 Emma Bower NP [address] [place] [address], , [facility] 6 11:38:09 Skin sensatio n disturba nce 68511084 Completed 09/24/2013 Emma Bower NP [address] [place] [address], , [facility] 6 11:38:09 Anxiety state 101628103 Completed 200804/29/2012 Emma Bower NP [address] [place] [address], , [facility] 6 11:38:09 Disorder of nervous system due to type 2 diabetes mellitus 352368620 Active 2008 Not Available [facility] 2 08:43:41 Clinical finding Completed 200804/29/2012 Emma Bower NP [address] [place], [address] , [facility] 6 11:38:09 Tachycar georgina 4028966 Completed 04/29/2012 Emma Bower NP [address] [place], [address] , [facility] 6 11:38:09 Megalobl astic anemia due to vitamin B>12< deficien cy 82967742 Active Not Available [facility] 2 08:43:41 Type 2 diabetes mellitus without complica tion 644831790 Completed 05/03/2018 Emma Bower NP [address] [place] [address], [address] , [facility] 8 14:11:41 Type 2 diabetes mellitus without complica tion 563446320 Completed 200810/11/2009 Emma Bower NP [address] [place] [address], [address] , [facility] 8 14:11:41 Type 2 diabetes mellitus without complica tion 547053558 Completed 10/14/2010 Emma Bower NP [address] [place], [address] , [facility] 8 14:11:41 Renal disorder due to type 2 diabetes mellitus 331543008 Completed 04/05/2010 Emma Bower NP [address] [place], [address] , [facility] 6 11:38:09 Morbid obesity 906761570 Active Not Available [facility] 2 08:43:41 Uncontro lled type 2 diabetes mellitus [id number] Active Not Available [facility] 2 08:43:41 Uncontro lled type 2 diabetes mellitus [id number] Completed 04/29/2012 Emma Bower NP [address] [place], [address] , [facility] 6 11:38:09 Malaise and fatigue [id number] Completed 200704/29/2012 Emma Bower NP [address] [place], [address] , [facility] 6 11:38:09 Headache 59562301 Completed 04/29/2012 Emma Bower NP [address] [place], [address] , [facility] 6 11:38:09 Renal failure syndrome 47793043 Completed 05/03/2018 Emma Bower NP [address] [place] [address], [address] , [facility] 8 14:11:28 Fever [id number] Completed 200804/29/2012 Emma Bower NP [address] [place], [address] , [facility] 6 11:38:09 Enthesop athy of hip region 85031130 Completed 200804/29/2012 Emma Bower NP [address] [place] [address], [address] , [facility] 6 11:38:09 Pain of hip region 60360204 Completed 200804/29/2012 Emma Bower NP [address] [place], [address] , [facility] 6 11:38:09 Plantar fasciiti s 835421104 Active Not Available [facility] 2 08:43:41 Vitamin D deficien cy 13570462 Completed 04/29/2012 Emma Bower NP [address] [place] [address], [address] , [facility] 6 11:38:09 Displace ment of thoracic interver tebral disc without myelopat 25701454 Completed 200805/03/2018 Emma Bower NP [address] [place], [address] , [facility] 8 14:11:18 Contusio n of axillary region 76116309 Completed 200704/29/2012 Emma Bower NP [address] [place] [address], [address] , [facility] 6 11:38:09 Irritabl e bowel syndrome 23792204 Active 2007 Not Available [facility] 2 08:43:41 Kidney disease 17696349 Completed 01/19/2016 Emma Bower NP [address] [place] [address], [address] , [facility] 6 11:38:09 Edema of extremit y 674480961 Completed 200804/29/2012 Emma Bower NP [address] [place] [address], [address] , [facility] 6 11:38:09 Chronic pain 46008349 Active 2007 Not Available [facility] 2 08:43:41 Gastropa resis syndrome 913739323 Active 2007 Not Available [facility] 2 08:43:41 Neuralgi a 93281349 Completed 200805/03/2018 Emma Bower NP [address] [place] [address], [address] , [facility] 8 14:11:53 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 Procedures Surgical History Date Name Laterality Status Provider Name and Address Organization Details Recorded Time 05/30/20 25 Medicare Wellness Visit completed Carol Broussard [facility] 04/03/2025 11:10:25 04/03/20 25 Cardiovascular disease risk reduction counseling completed Catrina Nichols DO [address] [place] [address], [address], [facility] 04/03/2025 15:16:17 02/12/20 25 Wound Care completed Roma Denise LPN [facility] 02/11/2025 12:46:31 03/28/20 24 Medicare Wellness [facility] 03/28/2024 11:26:49 03/28/20 24 Cardiovascular disease risk reduction counseling completed Carol Patterson[facility] 03/28/2024 11:27:02 03/28/20 24 Depression Counseling completed [facility] 03/28/2024 11:26:59 03/15/20 22 Alcohol use screening completed [facility] 03/15/2022 11:30:13 03/15/20 22 Cardiovascular disease risk reduction counseling completed [facility] 03/15/2022 11:30:13 03/15/20 22 Medicare Annual Wellness Visit completed Emma Bower NP [address] [place] [address], [address], [facility] 03/16/2022 06:38:17 03/21/20 21 Unlisted px ant segment eye completed Deedee Schroeder LPN [facility] 06/01/2021 13:38:35 12/01/19 21 prevention-annual alcohol misuse screening completed Claudia Wong [facility] 12/01/2020 13:57:36 09/06/20 20 US Guided Knee Joint Injection completed Stormy Foote MD [address] [place] [address], [address], [facility] 09/06/2020 12:23:07 12/24/19 20 laparoscopic sleeve gastrectomy completed Mercedes Riley MD [address] [place] [address], [address], [facility] 12/31/2019 09:48:41 09/18/20 19 Medicare Wellness Visit completed Janae Bray MA [facility] 09/18/2019 11:07:19 08/07/20 19 21399: Therapeutic Exercise completed Joie Trotter, PT [address] [place], [address], [facility] 08/07/2019 13:32:31 08/07/20 19 89581: Manual Therapy completed Joie Trotter, PT [address] [place], [address], [facility] 08/07/2019 13:32:36 08/07/20 19 Treatment and Advice completed Joie Trotter, PT [address] [place], [address], [facility] 08/07/2019 12:06:50 08/01/20 19 Physical Activity Counselling completed Joie Trotter, PT [address] [place], [address], [facility] 08/01/2019 11:51:11 08/01/20 19 30059: PT Eval Low Complexity completed Joie Trotter, PT [address] [place], [address], [facility] 08/01/2019 11:51:06 08/01/20 19 Treatment and Advice completed Joie Trotter, PT [address] [place], [address], [facility] 08/01/2019 11:44:21 06/14/20 19 Wound Care completed Lourdes Manning RN, BSN [facility] 06/14/2019 13:54:52 05/29/20 19 Medicare Visit Tracking [place] completed Joie Akins RD, LDN [address] [place] [address], [address], [facility] 05/30/2019 08:25:38 03/19/20 19 Wound Care completed Claudia Cavazos LPN [facility] 03/19/2019 11:10:43 02/28/20 19 Medicare Visit Tracking DM completed Ayala Charles RN, BSN, [address], [address], [facility] 03/01/2019 13:37:09 01/22/20 19 Wound Care completed Kerry Casey [facility] 01/21/2019 10:03:10 01/09/20 19 Post hospital/SNF follow-up/Transiti onal Care completed Claudia Wong [facility] 01/08/2019 11:26:59 01/09/20 19 Wound Care completed Claudia Cavazos [facility] 01/08/2019 14:06:36 01/09/20 19 Diabetic Retinal Exam completed Keily June [facility] 01/08/2019 11:51:35 08/29/20 18 Medicare Annual Wellness Visit completed Emma Bower NP [address] [place] [address], [address], [facility] 09/02/2018 19:58:56 08/07/20 18 Wound Care completed Haley Avitia [facility] 08/07/2018 11:09:04 05/10/20 18 Wound Care completed Precious Schmidt [facility] 05/10/2018 10:16:02 05/07/20 18 Wound Care completed Bella Soriano [facility] 05/07/2018 12:59:13 05/01/20 18 Wound Care completed Kerry Casey [facility] 05/01/2018 12:39:35 11/26/19 18 Medicare Visit Tracking [place] completed Joie Akins RD, LDN [address] [place] [address], [address], [facility] 11/26/2017 12:50:16 11/09/19 16 Medicare Visit Tracking DM completed Ayala Charles RN, BSN, [address], [address], [facility] 11/09/2015 14:47:57 04/06/20 15 Medicare Visit Tracking DM completed Ayala Charles RN, BSN, [address], [address], [facility] 04/06/2015 15:17:26 04/24/20 01 Laparoscopy lysis completed Not Available [facility] 09/21/2011 06:05:52 Cholecystectomy completed Latisha Best NP [address] [place], [address], [facility] 02/29/2012 14:29:47 Imaging Results None recorded. Procedure Notes None recorded. Medical Equipment None Reported. Allergies Allergen ID Allergen Name Allergen Category Reaction Reaction Severity Criticality Documentation Date Start Date Code Code System Note Provider Name and Address Organization Details Recorded Time [id number] amoxicill in medicatio n rash moderate Not available 05/10/2018 723 RxNorm Emma Bower NP [address] [place], [address], [facility] 8 09:49:56 [id number] Xarelto medicatio n rash Not available Not available 05/20/20192018 52247 99 RxNorm DANA Grigsby, [facility] 9 11:48:22 164182 Non-stero idal anti-infl ammatory agent (product) medicatio n Not available Not available Not available 01/04/2022 44749 005 SNOMED CKD Emma Bower NP [address] [place], [place] [address] [place], [address], [facility] 2 11:05:13 [id number] metformin medicatio n Not available Not available Not available 03/27/[address] Tomlinson r - CKD 4 Emma Bower NP [address] [place], [place] [address] [place], [address], [facility] 2 08:06:46 300333 pravastat in medicatio n myalgias (muscle pain) Not available Not available 03/15/2023 12398 RxNorm Mercedes Riley MD [address] [place], [place] [address] [place], [address], [facility] 3 14:52:56 270218 fluoxetin e medicatio n Not available Not available Not available 08/08/2023 4493 RxNorm DANA Asher, [facility] 3 12:34:10 [id number] venlafaxi ne medicatio n Not available Not available Not available 08/08/2023 08344 RxNorm Carol kendrick [place] null, [facility] 3 12:34:19 [id number] chlorhexi dine medicatio n rash mild low 04/14/2024 2358 RxNorm NICKI DAWSON, DO [address] [place] [address], [place], [address] [place] [address] 4 16:52:32 Medications Name Sig Start Date Stop Date Status Note LastModified by Organization Details LastModified Time Prescript ion - Prior Authoriza tion Request 01/11 completed cycloben zaprine Not Available Not Available Not Available losartan 50 mg tablet TAKE 1 TABLET BY MOUTH 1 TIME EACH DAY. 04/03 completed Not Available Not Available Not Available cyclobenz aprine 10 mg tablet TAKE 1 TABLET BY MOUTH EVERYDAY FOR MUSCLE SPASM active Not Available Not Available No t Available furosemid e 40 mg tablet TAKE 1 TABLET (40 MG TOTAL) BY MOUTH IN THE MORNING AND 1 TABLET IN THE EVENING 11/13 completed Not Available Not Available Not Available cefazolin 1 gram solution for injection 01/21 completed Not Available Not Available Not Available medroxypr ogesteron e 10 mg tablet 06/01 completed Not Available Not Available Not Available latanopro st 0.005 % eye drops INSTILL ONE DROP INTO LEFT EYE AT BEDTIME 03/17 completed 0 stopped x months ago Not Available Not Available Not Available Miralax 17 gram/dose oral powder Take 15 millilit ers (17 gram) powder mixed with 8 oz. water, juice, soda, coffee, or tea by oral route once to 3x daily 04/05 completed Not Available Not Available Not Available desonide 0.05 % topical cream Apply sparingl y and rub gently into the affected area(s) by topical route 2 times per day as needed 2010 active Not Available Not Available Not Avai lable silver sulfadiaz ine 1 % topical cream Apply a 1/16 inch (1.5 mm) thick layer to entire burn area by topicalr oute 2 times per day 07/02 completed Not Available Not Available Not Available levothyro xine 175 mcg tablet TAKE 1 TABLET BY MOUTH DAILY 07/05 completed Not Available Not Available Not Available carvedilo l 6.25 mg tablet TAKE 1 TABLET (6.25 MG) BY ORAL ROUTE 2 TIMES PER DAY WITH FOOD 06/01 completed [facility] Not Available Not Available Not Available doxycycli ne hyclate 100 mg capsule TAKE 1 CAPSULE BY MOUTH TWICE A DAY AFTER MEALS FOR 7 DAYS. 04/03 completed Not Available Not Available Not Available labetalol 200 mg tablet TAKE 1 TABLET BY MOUTH TWICE A DAY 11/13 completed Not Available Not Available Not Available clindamyc in HCl 300 mg capsule TAKE 1 CAPSULE BY MOUTH EVERY 6 HOURS FOR 5 DAYS 03/15 completed pt states not taking 03/15/22 gr Not Available Not Available Not Available cefpodoxi me 200 mg tablet Take 1 tablet twice a day by oral route as directed for 5 days. 05/06 completed Per [facility] 04/25/24; complete d Not Available Not Available Not Available azithromy carly 250 mg tablet TAKE 2 TABLETS BY MOUTH TODAY, THEN TAKE 1 TABLET DAILY FOR 4 DAYS DIRECTED 02/11 completed Not Available Not Available Not Available acetazola mide ER 500 mg capsule,e xtended release 12/31 completed Not Available Not Available Not Available ofloxacin 0.3 % eye drops 03/08 completed Not Available Not Available Not Available metoprolo l succinate ER 50 mg tablet,ex tended release 24 hr TAKE 1 TABLET (50 MG TOTAL) BY MOUTH DAILY DO NOT CRUSH OR CHEW active Not Available Not Available No t Available sulfameth oxazole 400 mg-trimet hoprim 80 mg tablet TAKE 2 TABLETS BY MOUTH EVERY 12 HOURS FOR 5 DAYS 08/08 completed Not Available Not Available Not Available valacyclo vir 1 gram tablet TAKE 1 TABLET DAILY 2024 active Not Available Not Available Not Avai lable cephalexi n 250 mg capsule 09/18 completed Not Available Not Available Not Available OxyContin 20 mg tablet,ex tended release 2008 active Take 1.00 tabs every 12 hours as needed Not Available Not Available Not Available Tad-Gest Antacid 200 mg (as calcium carbonate 500 mg) chewable tablet CHEW 1 TABLET BY MOUTH THREE TIMES A DAY 09/18 completed Not Available Not Available Not Available glipizide ER 10 mg tablet, extended release 24 hr Take 2 tablets every day by oral route. active Not Available Not Available No t Available sucralfat e 1 gram tablet 09/07 completed Not Available Not Available Not Available Skye Lancets 28 gauge UTD TO CHECK GLUCOSE D active Not Available Not Available No t Available metronida zole 0.75 % (37.5 mg/5 gram) vaginal gel active Not Available Not Available Not Available prednison e 20 mg tablet Take 3 tablets every day by oral route in the morning for 3 days. 02/06 completed 9 currentl y 15mg and taper, decreasi ng 5 mg each week. Not Available Not Available Not Available prednison e 5 mg tablet 03/19 completed Not Available Not Available Not Available glipizide ER 5 mg tablet, extended release 24 hr TAKE 1 TABLET bid active Not Available Not Available No t Available atenolol 25 mg tablet Take 2 in am, and 2 in pm 2008 active was seen 05/13 and had med increase d Not Available Not Available Not Available valsartan 80 mg tablet TAKE 1 TABLET BY MOUTH EVERY DAY 04/29 completed will start if blood pressure stays high,nev er started 07/21/21M Spt states not taking 03/15/22 gr 12/27/22K F not taking; pt states BP has not been consista nly over 140 sysltoli c(,every once in a while) 03/16/23 not taking consiste ntly Not Available Not Available Not Available Nexium 40 mg capsule,d elayed release TAKE ONE CAPSULE EVERY DAY 01/11 completed Not Available Not Available Not Available hydralazi ne 25 mg tablet TAKE 1 TABLET (25 MG TOTAL) BY MOUTH IN THE MORNING AND IN THE EVENING 01/19 completed PRN Not Available Not Available Not Available amlodipin e 2.5 mg tablet TAKE 1 TABLET BY MOUTH EVERY DAY 03/08 completed 12/01/19 21 not taking ljl Not Available Not Available Not Available Zyrtec 10 mg tablet 2007 active 1 po daily prn spring allergie s Not Available Not Available Not Available ciproflox acin 250 mg tablet TAKE 1 TABLET BY MOUTH IN THE MORNING AND 1 TABLET IN THE EVENING. DO ALL THIS FOR 6 DOSES. 08/20 completed Not Available Not Available Not Available prochlorp erazine maleate 10 mg tablet Take 1 tablet 3 times a day by oral route as directed . 2010 active Not Available Not Available Not Avai lable morphine ER 30 mg tablet,ex tended release TAKE 1 TABLET BY MOUTH THREE TIMES DAILY FOR CHRONIC PAIN. MAY NURSE COMPANION ON 5 active Not Available Not Available No t Available sulfameth oxazole 800 mg-trimet hoprim 160 mg tablet TAKE 1 TABLET BY MOUTH 1 (ONE) TIME EACH DAY FOR 14 DAYS active Not Available Not Available No t Available aspirin 81 mg tablet,de layed release TAKE 1 TABLET BY MOUTH EVERY DAY 05/20 completed Not Available Not Available Not Available tramadol 50 mg tablet Take 1 tablet 3 times a day by oral route as needed for GRIGSBY. 2009 active Not Available Not Available Not Avai lable triamcino lone acetonide 0.1 % topical cream Apply a thin film to the affected skin areas by topical route 2 timesper day 04/05 completed Not Available Not Available Not Available Cytomel 5 mcg tablet 03/18 completed Take 1.00 tabs 3 times daily Not Available Not Available Not Available levothyro xine 25 mcg tablet Take 1/2 tablet by mouth once daily 4 days/flori gayle or as directed . 2008 active Not Available Not Available Not Avai lable oxycodone 15 mg tablet TAKE 1 TABLET BY MOUTH THREE TIMES DAILY. MAY NURSE COMPANION ON 5 active Not Available Not Available No t Available fluticaso ne propionat e 0.005 % topical ointment APPLY A THIN LAYER TO AFFECTED AREA TWICE A DAY RUB IN GENTLY AND COMPLETE LY 08/20 completed No longer using/JM L 05/06/24 Not Available Not Available Not Available levothyro xine 100 mcg tablet TAKE 1 TABLET BY MOUTH EVERY DAY 04/03 completed Not Available Not Available Not Available carbamaze pine 200 mg tablet TAKE 2 TABLETS BY MOUTH AT BEDTIME 03/08 completed 1 not currentl y taking ljl Not Available Not Available Not Available levothyro xine 88 mcg tablet TAKE 1 TABLET BY MOUTH EVERY DAY active Not Available Not Available No t Available ceftriaxo ne 1 gram solution for injection Administ er 1 gm for cellulit is 03/17 completed Not Available Not Available Not Available lancets active Not Available Not Avail able Not Available amoxicill in 875 mg tablet Take 1 tablet every 12 hours by oral route for 7 days. 08/07 completed Not Available Not Available Not Available prednisol one acetate 1 % eye drops,hui pension 03/08 completed Not Available Not Available Not Available magnesium oxide 400 mg (241.3 mg magnesium ) tablet TAKE 2 TABLETS BY MOUTH EVERY DAY 08/11 completed 01/09/2020 not taking ljl Not Available Not Available Not Available metoclopr amide 5 mg tablet 11/23 completed 1/2 to 1 tab prior to meals as directed Not Available Not Available Not Available pravastat in 10 mg tablet TAKE 1 TABLET BY MOUTH EVERY DAY 08/11 completed Not Available Not Available Not Available gabapenti n 800 mg tablet TAKE 2 TABLETS BY MOUTH DAILY AT BEDTIME. active Not Available Not Available No t Available morphine ER 60 mg tablet,ex tended release Take 1 tablet every 12 hours by oral route for 28 days. active Not Available Not Available No t Available gemfibroz il 600 mg tablet 1 tablet bid 01/11 completed Not Available Not Available Not Available glipizide ER 2.5 mg tablet, extended release 24 hr TAKE 1 TABLET EVERY EVENING WITH 5 MG TABLET FOR TOTAL DOSE OF 7.5 MG 2012 active Not Available Not Available Not Avai lable Lasix 20 mg tablet 3 tablets daily for 3 days as needed 03/18 completed Not Available Not Available Not Available cephalexi n 500 mg capsule Take 1 capsule every 12 hours by oral route for 7 days. 08/08 completed Not Available Not Available Not Available pantopraz ole 40 mg tablet,de layed release TAKE 1 TABLET BY MOUTH EVERY DAY 2024 active Take 1 Tablet Daily Not Available Not Available Not Available erythromy carly 5 mg/gram (0.5 %) eye ointment APPLY 1/2 INCH RIBBON OD TID 03/17 completed 0 pt reports she stopped 1 month ago Not Available Not Available Not Available Gas Relief (simethic one) 80 mg chewable tablet TAKE 1 TABLET EVERY 6 HOURS FOR 7 DAYS 03/17 completed 0 pt reports she stopped in 2019 Not Available Not Available Not Available cyanocoba jackelyn (vit B-12) 1,000 mcg/mL injection solution Inject 1 millilit er (1000 mcg) by intramus cular route once a month 11/13 completed hasnt had in a while Not Available Not Available Not Available fluoxetin e 20 mg tablet START WITH 1/2 TABLET DAILY, INCREASE TO 1 TAB DAILY AFTER 1-2WEEKS IF TOLERATE D. 05/05 completed Not Available Not Available Not Available levothyro xine 125 mcg tablet TK 1 T PO QD 12/04 completed Not Available Not Available Not Available nystatin 100,000 unit/gram topical cream APPLY BY TOPICAL ROUTE TO RASH IN BELLY BUTTON TWICE DAILY. active Not Available Not Available No t Available lansopraz ole 30 mg capsule,d elayed release TAKE 1 CAPSULE EVERY DAY BY MOUTHIN THE MORNING 01/11 completed Not Available Not Available Not Available hyoscyami ne 0.125 mg sublingua l tablet Place 1 tablet 3 times a day by sublingu al route 15 min before meals. 2009 active prn Not Available Not Available Not Avai lable BD Safety-Lo k Tuberculi n 1 mL 25 gauge x 5/8 syringe completed Not Available Not Available Not Available levothyro xine 150 mcg tablet TAKE 1 TABLET BY MOUTH EVERY DAY 12/01 completed 12/01/20 currentl y taking 125 mcg Not Available Not Available Not Available brimonidi ne 0.2 % eye drops 03/17 completed 0 pt reports she stopped 1 month ago Not Available Not Available Not Available fluoxetin e 10 mg capsule Take 1 capsule every day by oral route for 7 days. 05/05 completed Not Available Not Available Not Available betametha sone dipropion ate 0.05 % topical cream APPLY TO AFFECTED AREA 2 TIMES A DAY,X14 DAYS,INS TR:TO RED, ITCHY IRRITATE D AREAS ON LEFT LEG 09/18 completed Not Available Not Available Not Available docusate sodium 100 mg capsule TAKE 1 CAPSULE BY MOUTH TWICE A DAY 03/08 completed Not Available Not Available Not Available omeprazol e 20 mg capsule,d elayed release Take 1 capsule twice a day by oral route as directed for 30 days. 02/23 completed Not Available Not Available Not Available Actos 15 mg tablet Take 1 tablet every day by oral route in the morning. 2010 active dose increase Not Available Not Available Not Available diclofena c sodium 75 mg tablet,de layed release 09/17 completed Take 1.00 tabs twice daily Not Available Not Available Not Available K-Dur 10 mEq tablet,ex tended release Take 1 tablet twice a day by oral route with meals. 03/18 completed Not Available Not Available Not Available folic acid 1 mg tablet TAKE 1 TABLET BY MOUTH EVERY DAY 03/15 completed pt states not taking 03/15/22 gr Not Available Not Available Not Available levothyro xine 200 mcg tablet TAKE 1 TABLET EVERY DAY ALTERNAT ING WITH 175 MCG DIRECTED PER MD active Not Available Not Available No t Available pravastat in 20 mg tablet Take 1 tablet every day by oral route for 90 days. active Not Available Not Available No t Available lisinopri l 5 mg tablet TAKE 1/2 TABLET BY MOUTH ONCE A DAY 09/18 completed Not Available Not Available Not Available hydrochlo rothiazid e 25 mg tablet TAKE 1 TABLET BY MOUTH EVERY MORNING 04/05 completed Not Available Not Available Not Available mupirocin 2 % topical ointment APPLY 1 APPLICAT ION TOPICALL Y 3 TIMES A DAY FOR 10 DAYS 09/18 completed Not Available Not Available Not Available ergocalci ferol (vitamin D2) 1,250 mcg (50,000 unit) capsule TAKE 1 CAPSULE BY MOUTH ONCE WEEKLY 2024 active Not Available Not Available Not Avai lable Imitrex 100 mg tablet Take 1 tablet (100 mg) by oral route once with fluids as early as possible after the onset of a migraine attack;m ay repeat after 2 hours ifheadac he returns, not to exceed 200mg in 24hrs 2009 active prn Not Available Not Available Not Avai lable nystatin 100,000 unit/gram topical powder APPLY TO AFFECTED AREA TWICE A DAY active Not Available Not Available No t Available hydroxych loroquine 200 mg tablet TAKE 1 TABLET BY MOUTH TWICE A DAY WITH FOOD 01/21 completed Not Available Not Available Not Available labetalol 100 mg tablet TAKE 2 TABLETS BY MOUTH IN THE MORNING AND 2 TABLETS IN THE EVENING. 11/13 completed Not Available Not Available Not Available timolol maleate 0.5 % eye drops 12/31 completed Not Available Not Available Not Available hydroxyzi ne HCl 10 mg tablet TAKE 1 TABLET (10 MG TOTAL) BY MOUTH THREE TIMES A DAY IF NEEDED FOR ITCHING 04/03 completed Not Available Not Available Not Available Avandia 4 mg tablet TAKE 1 TABLET TWICE DAILY 06/13 completed Not Available Not Available Not Available ondansetr on 4 mg disintegr ating tablet TAKE 1 TO 2 TABLETS BY MOUTH EVERY 8 HOURS FOR 2 DAYS 12/01 completed Not Available Not Available Not Available losartan 100 mg tablet TAKE 1 TABLET BY MOUTH 1 TIME EACH DAY. 04/03 completed Not Available Not Available Not Available fluoxetin e 20 mg capsule take 1 tab daily 05/05 completed Not Available Not Available Not Available metformin ER 500 mg tablet,ex tended release 24 hr TAKE 2 TABLETS BY MOUTH IN THE MORNING AND TAKE 2 TABLETS IN THE EVENING 12/31 completed patient not taking Not Available Not Available Not Available lisinopri l 2.5 mg tablet TAKE 1 TABLET BY MOUTH EVERY DAY 05/20 completed has stopped for now 03/19/19 SRP was d/c by hospital Not Available Not Available Not Available medroxypr ogesteron e 150 mg/mL intramusc ular suspensio n INJECT 2 ML INTRAMUS CULAR EVERY 3 MONTHS 365 DAYS 03/15 completed pt states not taking 03/15/22 gr Not Available Not Available Not Available doxycycli ne hyclate 100 mg tablet 08/07 completed Not Available Not Available Not Available atenolol 50 mg tablet TAKE 1 TABLET AM and 1/2 tab PM 2009 active Not Available Not Available Not Avai lable calcitrio l 0.25 mcg capsule TAKE 1 CAPSULE BY MOUTH EVERY OTHER DAY active Not Available Not Available No t Available estradiol 0.1 mg/24 hr weekly transderm al patch 03/15 completed pt states not taking 03/15/22 gr Not Available Not Available Not Available omeprazol e ER 40 mg capsule,e xtended release Take 1 capsule every day by oral route as directed for 30 days. 02/20 completed Not Available Not Available Not Available levothyro xine 112 mcg tablet TAKE 1 TABLET BY MOUTH EVERY DAY completed Not Available Not Available Not Available Vitamin B-12 1,000 mcg tablet TAKE 1 TABLET BY MOUTH EVERY DAY 01/11 completed Not Available Not Available Not Available Actos 30 mg tablet Take 1 tablet every day by oral route. 2010 active Not Available Not Available Not Avai lable cholecalc iferol (vitamin D3) 25 mcg (1,000 unit) capsule 2007 active Take 1.00 caps every day Not Available Not Available Not Available azithromy carly 500 mg tablet TAKE 1 TABLET BY MOUTH EVERY DAY 08/20 completed Not Available Not Available Not Available medroxypr ogesteron e 150 mg/mL intramusc ular syringe INJECT 1 ML INTRAMUS CULARLY EVERY 90 DAYS 03/15 completed pt states not taking 03/15/22 gr Not Available Not Available Not Available Novolog FlexPen U-100 Insulin aspart 100 unit/mL (3 mL) subcutane ous 5units subcut when drinking sweetene d drinks 2 to 3 times daily; 10 to 15units with meal once daily 03/19 completed Not Available Not Available Not Available Prilosec OTC 20 mg tablet,de layed release Take 1 tablet every day by oral route for 28 days. 04/05 completed Not Available Not Available Not Available Natasha-Mike 0.8 mg tablet TAKE 1 TABLET BY MOUTH EVERY DAY active Not Available Not Available No t Available nitrofura ntoin monohydra te/macroc rystals 100 mg capsule TAKE 1 CAPSULE WITH FOOD ORALLY WITH INTERCOU RSE 04/14 completed Not Available Not Available Not Available BD Ultra-Fin e Mini Pen Needle 31 gauge x 3/16 twice daily with byetta 2012 active Not Available Not Available Not Avai lable eszopiclo ne 2 mg tablet Take 1 tablet every day by oral route at bedtime for 30 days. 12/02 completed Not Available Not Available Not Available cholecalc iferol (vitamin D3) 250 mcg (10,000 unit) capsule 2 caps 20,000un its by mouth once daily 03/17 completed patient takes 1 tablet twice a week Not Available Not Available Not Available Cathleen 10 mcg/dose( 250 mcg/mL)2. 4 mL subcutane ous pen injector INJECT 10MCG SUBCUTAN EOUSLY TWICE A DAY 01/11 completed Not Available Not Available Not Available Cathleen 5 mcg/dose (250 mcg/mL)1. 2 mL subcutane ous pen injector Inject 0.02 mL twice a day by subcutan eous route. 2010 active Not Available Not Available Not Avai lable Metrogel 1 % topical APPLY TO FACE TWICE DAILY 01/11 completed Not Available Not Available Not Available chlorhexi dine gluconate 0.12 % mouthwash TAKE 15 MLS BY MOUTH SWISH AND SPIT 3 TIMES A DAY AFTER MEALS AND BEDTIME, X7 DAYS 03/15 completed pt states no taking 03/15/22 gr Not Available Not Available Not Available omeprazol e active Not Available Not Available Not Available Depo-Prov era 300 mg IM q 3 mo 01/[address] Paulina Raya Not Available Not Available Not Available pantopraz ole 40mg QD active Not Available Not Available Not Available BD Ultra-Fin e Short Pen Needle 31 gauge x 5/16 USE DIRECTED 4 TIMES A DAY 03/08 completed Not Available Not Available Not Available BD Luer-Marisol Syringe 1 mL completed Not Available Not Available Not Available FreeStyle Lite Meter kit UTD 03/28 completed Not Available Not Available Not Available FreeStyle Lite Strips 03/08 completed Not Available Not Available Not Available Lantus Solostar U-100 Insulin 100 unit/mL (3 mL) subcutane ous pen INJECT 30 units subcutan eously DIRECTED , ADJUST BY 2 TO 4UNITS WEEKLY, UP TO 56UNITS ONCE DAILY 12/31 completed Not Available Not Available Not Available sevelamer carbonate 800 mg tablet PLEASE SEE ATTACHED FOR DETAILED DIRECTIO NS active Not Available Not Available No t Available Humalog KwikPen (U-100) Insulin 100 unit/mL subcutane ous 5UNITS SUBCUT WHEN DRINKING SWEETENE D DRINKS 2 TO 3 TIMES DAILY 10 TO 15UNITS WITH MEAL ONCE DAILY 09/18 completed Not Available Not Available Not Available oxycodone 10 mg tablet 01/19 completed Not Available Not Available Not Available Durezol 0.05 % eye drops 03/17 completed 0pt reports she stopped these 1 month ago Not Available Not Available Not Available Prevacid 24Hr 15 mg capsule,d elayed release Take 1 capsule every day by oral route in the morning for 90 days. 03/31 completed Not Available Not Available Not Available OneTouch Delica Lancing Device kit use as directed active Not Available Not Available No t Available OneTouch Delica Lancets 33 gauge TEST DIRECTED UP TO 5 TIMES DAILY E11.65 T2DM 03/15 completed pt states not taking 03/15/22 gr Not Available Not Available Not Available Zegerid OTC 20 mg-1.1 gram capsule Take 1 capsule every day by oral route. 2011 active Not Available Not Available Not Avai lable Xarelto 15 mg tablet TAKE 1 TABLET BY MOUTH TWO TIMES A DAY WITH MEALS FOR 21 DAYS, THEN CONTINUE WITH THE 20 MG TABLET ONCE DAILY THEREAFT ER 05/20 completed Not Available Not Available Not Available Xarelto 20 mg tablet TAKE 1 TABLET BY MOUTH EVERY DAY AT SUPPER. (START IN 3 WEEKS AFTER COMPLETI ON OF 15 MG COURSE) 05/20 completed Not Available Not Available Not Available Contour Next Test Strips check sugars 4x/d 04/03 completed Not Available Not Available Not Available Eliquis 5 mg tablet 09/18 completed Not Available Not Available Not Available Jardiance 10 mg tablet TAKE 1 TABLET BY MOUTH EVERY DAY 01/11 completed Not Available Not Available Not Available Afluria 0966-9653 (PF) 45 mcg (15 mcg x 3)/0.5 mL intramusc ular syringe TO BE ADMINIST ERED BY PHARMACI ST FOR IMMUNIZA TION active Not Available Not Available No t Available Jardiance 25 mg tablet TAKE 1 TABLET BY MOUTH EVERY DAY 08/08 completed Not Available Not Available Not Available Trulicity 1.5 mg/0.5 mL subcutane ous pen injector INJECT THE CONTENTS OF 1 PEN UNDER THE SKIN ONCE A WEEK 01/03 completed Not Available Not Available Not Available Trulicity 0.75 mg/0.5 mL subcutane ous pen injector INJECT 1 PEN SUBCUTAN EOUSLY ONCE WEEKLY *ROTATE INJECTIO N SITES* 04/01 completed Not Available Not Available Not Available Belsomra 10 mg tablet TAKE 1 TAB WITHIN 30MINUTE S OF BEDTIME ONLY NEEDED 03/15 completed pt states no taking 03/15/22 gr Not Available Not Available Not Available Veltassa 8.4 gram oral powder packet 08/11 completed Not Available Not Available Not Available Narcan 4 mg/actuat ion nasal spray active Not Available Not Available Not Available Fluvirin (PF) 45 mcg (15 mcg x 3)/0.5 mL intramusc ular syringe ADM 0.5ML IM UTD 01/11 completed Not Available Not Available Not Available Fluarix Quad (PF) 60 mcg (15 mcg x 4)/0.5 mL IM syringe TO BE ADMINIST ERED BY PHARMACI ST FOR IMMUNIZA TION 01/11 completed Not Available Not Available Not Available Ozempic 1 mg/dose (2 mg/1.5 mL) subcutane ous pen injector 1 mg subcut once weekly as tolerate d 03/15 completed Not Available Not Available Not Available Ozempic 0.25 mg or 0.5 mg (2 mg/1.5 mL) subcutane ous pen injector INJECT 0.25MG WEEKLY FOR 4 WEEKS THEN INCREASE TO 0.5MG ONCE WEEKLY TOLERATE D. MAY INCREASE TO 1MG AFTER 2 MONTHS 03/15 completed pt states not taking insuranc e denied 03/15/22 gr Not Available Not Available Not Available Fluzone Quad (PF) 60 mcg (15 mcg x 4)/0.5 mL IM syringe PHARMACY ADMINIST ERED 09/07 completed Not Available Not Available Not Available Trulicity 3 mg/0.5 mL subcutane ous pen injector INJECT 3 MG EVERY WEEK BY SUBCUTAN EOUS ROUTE. 06/01 completed Not Available Not Available Not Available Trulicity 4.5 mg/0.5 mL subcutane ous pen injector INJECT 4.5 MG EVERY WEEK BY SUBCUTAN EOUS ROUTE. active Not Available Not Available No t Available Vitals Date Recorded Body height Body mass index (BMI) Body weight Heart rate Systolic And Diastolic Provider Name and Address Organization Details Last Updated DateTime 11/13/2024 162.56 cm 31.4 kg/m2 21117.4 g 92 /min 138/76 mm[Hg] [facility] 5 10:59:33 Date Recorded Body height Body mass index (BMI) Body weight Heart rate Systolic And Diastolic Provider Name and Address Organization Details Last Updated DateTime 12/09/2024 162.56 cm 31.4 kg/m2 03409.4 g 88 /min 100/60 mm[Hg[facility] 13:45:38 Date Recorded Body height Body mass index (BMI) Body weight Heart rate Systolic And Diastolic Provider Name and Address Organization Details Last Updated DateTime 01/19/2025 162.56 cm 30.6 kg/m2 24228.44 g 88 /min 66/42 mm[Hg] [facility] 12:38:49 Date Recorded Body height Body mass index (BMI) Body weight Body temperature Oxygen saturation Oxygen saturation in Arterial blood by Pulse oximetry Heart rate Systolic And Diastolic Provider Name and Address Organization Details Last Updated DateTime 162.56 cm 30.6 kg/m2 47904.4 4 g 96 [degF] 99 % 99 % 90 /min 70/40 mm[Hg] Natasha Lopez [facility] 5 12:01:47 Date Recorded Body height Body mass index (BMI) Body weight Heart rate Systolic And Diastolic Provider Name and Address Organization Details Last Updated DateTime 04/03/2025 162.56 cm 30.9 kg/m2 52374.35 g 84 /min 94/54 mm[Hg] [facility] 11:21:35 Social History Question Answer Notes LastModified by Organization Details LastModified Time Tobacco Smoking Status Never Smoker Not Available [facility] 09/21/2011 04:52:47 Have Your Ever Had Any Service? No Information not available 04/03/2025 How Many Times Per Week Do You Exercise For 30+ Minutes? 0 Information not available 04/03/2025 CSRP - Narcotics No [email or web address] Informat ion not available 03/20/2016 CSRP Contract Signed And Discussed No 12/13/11 Sathish,-transfe r To Dr. Russo 03/2015 [email or web address] Information not available 03/20/2016 Patient Has Health Care Proxy Signed And In Chart Yes Information not available 04/18/2023 DM Disease Process Pre-grasps [place] Information not available 04/06/2015 Nutrition Post-grasps [place] 05/29/19 Information not available 05/30/2019 Physical Activity Post-needs Review Information not available 11/26/2017 Medications Post-grasps [place] 05/29/19 Information not available 11/26/2017 Monitoring Pre-grasps [place] 05/29/19 Information not available 04/06/2015 Acute Complications Pre-grasps [place] Information not available 04/06/2015 Chronic Complications Post-grasps [place] Information not available 05/30/2019 Coping Post-needs Review Information not available 05/30/2019 Behavior Change Pre-needs Review Information not available 04/06/2015 DSME Plan Goal Using Medications Safely: Start Taking Medication Regularly. Information not available 04/06/2015 DSME Plan Goal Success 100%-always: Pt States That She Takes All Of Her Medications As Recently Adjusted By Dr. Osvaldo gomez Information not available 05/30/2019 DSME Plan Goal Evaluation: 11/26/2017 Information not available 11/26/2017 DSME 2nd Goal Monitoring Test Blood Sugars 2-4x/day Information not available 04/06/2015 DSME 2nd Goal Success 75%-most Of The Time: Information not available 05/30/2019 DSME 2nd Goal Evaluation: 05/29/2019 Information not available 05/30/2019 DSME Plan Initiated: 11/09/2015 DSME Dates Seen: 11/09/15. MNT 11/26/17, 10/08/18, 05/29/19 Information not available 11/09/2015 DSME Plan Status In Progress - [email or web address] Infor arnaud not available 04/06/2015 CCM Consent Discussion 03/16/2023 Information not available 03/30/2023 Diabetes Ed Classes Discussed Patient Not Appropriate On Insulin Information not available 11/26/2017 How Many Children Do You Have? 0 Information not available 09/21/2011 What Is Your Relationship Status? Single [email or web address] Information not available 03/15/2022 How Much Tobacco Do You Smoke? No Information not available 01/09/2020 How Many Years Have You Smoked Tobacco? 0 blepage Information not available 03/08/2021 Sex: Female Functional Status Question Answer Note LastModified by Organizat ion Details LastModified Time Do you use any illicit or recreational drugs? No [email or web address] Information not available 06/01/2021 Do you or have you ever used any other forms of tobacco or nicotine? No [email or web address] Information not available 07/24/2022 Are you currently employed? 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 Never used electronic cigarettes Information not available 01/09/2020 Mental Status None recorded. Family History Relationship Description Onset Age of this Age Resolved Age Notes LastModified by Organization Details LastModified Time Mother Hyperlipidem ia and see below [email or web address] [id number] Not available 06/16/2013 03:00:36 Mother Chronic obstructive pulmonary disease [email or web address] Not available 2016 14:41:52 Maternal Grandmother Malignant neoplasm of lung previo usly record ed as Cancer - Lung [id number] [id number] Not available 06/16/2013 03:00:36 Sister Problem matern al half; possib le pre-di abetes , overwt [email or web address] [id number] Not available 06/16/2013 03:00:36 Notes:Gastrointestinal: Fami ly history is remarkable for Crohn's disease (mom). COPD -mom Neurological: Peripheral neuropathy, probably of autoimmune etiology (mom) familial dyslipidemia Medical History Condition Response Hypothyroid Y NEUROLOGIC Y Systemic Lupus E Y Chronic Neck Pain Y GASTROINTESTINAL Y Depression Y Chronic Back Pain Y Diabetes Type II Y Anemia Y CARDIOVASCULAR Y GERD Y Fibromyalgia Y Hypertension Y Kidney Disease Y Gynecological HistoryNo gynecological history recorded. Obstetrics History GPAL:G 0 P 0 0 0 0 Immunizations Vaccine Type Date Status Note Provider Nam e and Address Organization Details Recorded Time Influenza, split virus, trivalent, preservative 9 completed Not Available [facility] 11/22/2019 02:17:24 Influenza, split virus, trivalent, preservative 1 completed Not Available [facility] 11/22/2019 02:25:08 Tdap 2 completed Not Available [facility] 11/22/2019 02:15:48 Novel [id number] 9 completed Not Available [facility] 11/22/2019 02:32:22 influenza, unspecified formulation 0 completed Not Available [facility] 08/03/2021 06:09:16 Influenza, split virus, trivalent, PF 3 completed Not Available [facility] 11/22/2019 02:25:10 Influenza, split virus, trivalent, preservative 2 completed Not Available [facility] 08/03/2021 06:09:16 Influenza, split virus, quadrivalent, PF 5 completed Not Available [facility] 11/22/2019 02:19:48 Influenza, split virus, trivalent, preservative 4 completed Not Available [facility] 08/03/2021 06:09:16 Influenza, split virus, quadrivalent, PF 8 completed Not Available [facility] 11/22/2019 02:23:01 Influenza, split virus, quadrivalent, preservative 6 completed Not Available [facility] 08/03/2021 06:09:16 pneumococcal polysaccharide PPV23 0 completed Not Available [facility] 11/22/2019 02:14:29 Influenza, split virus, quadrivalent, preservative 9 completed Not Available [facility] 08/03/2021 06:09:16 Influenza, split virus, quadrivalent, PF 1 completed Claudia Wong MA [facility] 09/07/2021 15:57:42 Influenza, split virus, quadrivalent, preservative 1 completed Not Available [facility] 08/03/2021 06:09:16 COVID-19, mRNA, LNP-S, PF, 100 mcg/0.5mL dose or 50 mcg/0.25mL dose 1 completed Not Available [facility] 08/03/2021 06:09:16 COVID-19, mRNA, LNP-S, PF, 100 mcg/0.5mL dose or 50 mcg/0.25mL dose 1 completed Not Available [facility] 08/03/2021 06:09:16 Td (adult), 2 Lf tetanus toxoid, preservative free, adsorbed 3 completed Emma Bower, MIGUEL [address] [place] [address], [phone], [facility] 03/19/2023 09:31:57 Influenza, split virus, quadrivalent, PF 3 completed Catrina Nichols, [address] [place] [address], [phone], [facility] 08/09/2023 16:43:15 COVID-19, mRNA, LNP-S, PF, 100 mcg/0.5mL dose or 50 mcg/0.25mL dose 1 completed Janae Bray MA [facility], [facility] 11/07/2021 09:38:37 Past Encounters Encounter ID Performer Location Encounter Start Date Encounter Closed Date Diagnosis/Indication Diagnosis SNOMED-CT Code Diagnosis ICD10 Code Diagnosis Note [id number] MD FABBY Lewis, [facility], [address] [place] [address] 08/11/2008 14:17:53 11/25/2008 02:02:29 [id number] MD FABBY Lewis, [facility], [address] [place] [address] 08/27/2008 11:43:41 11/25/2008 02:02:29 [id number] MD FABBY Lewis, [facility], [address] [place] [address] 09/24/2008 12:09:52 11/25/2008 02:02:29 [id number] Moncho Felton MD , [facility], [address] [place] [address] 11/24/2008 11:52:23 11/26/2008 08:44:37 [id number] Moncho Felton MD , [facility], [address] [place] [address] 12/30/2008 09:47:55 01/12/2009 09:28:00 [id number] Moncho Felton MD , [facility], [address] [place] [address] 01/22/2009 11:58:38 01/25/2009 11:31:09 [id number] Moncho Felton MD , [facility], [address] [place] [address] 01/26/2009 15:19:15 02/08/2009 15:49:29 [id number] Moncho Felton MD , [facility], [address] [place] [address] 02/17/2009 15:08:52 2009 08:14:03 [id number] [facility] RADIOLOGY [facility] , [facility] [address] [place] [address] 02/17/2009 16:21:52 02/19/2009 11:30:55 [id number] Moncho Felton MD , [facility], [address] [place] [address] 03/18/2009 11:59:36 03/23/2009 12:37:55 [id number] Moncho Felton MD , [facility], [address] [place] [address] 04/16/2009 11:32:11 06/16/2009 15:38:39 [id number] Moncho Felton MD , [facility], [address] [place] [address] 05/06/2009 11:27:24 05/14/2009 08:52:44 [id number] Moncho Felton MD , [facility], [address] [place] [address] 06/09/2009 12:14:39 06/15/2009 08:55:58 [id number] [facility] PRINCIPAL MECHANICAL ENGINEER Radiology , [facility] [address] [place] [address] 06/15/2009 15:07:20 06/22/2009 14:07:21 [id number] Moncho Felton MD , [facility], [address] [place] [address] 07/13/2009 12:14:40 09/10/2009 10:54:12 [id number] Moncho Felton MD , [facility], [address] [place] [address] 08/03/2009 14:53:08 10/07/2009 08:50:16 [id number] Moncho Felton MD , [facility], [address] [place] [address] 08/12/2009 12:17:17 08/16/2009 11:03:40 [id number] [facility] - [address] [address] 11/24/2008 13:26:06 11/24/2008 13:26:15 [id number] [facility] - [address] [address] 01/22/2009 13:48:30 01/22/2009 13:48:44 [id number] [facility] - [address] [address] 01/26/2009 15:58:18 01/26/2009 15:58:25 [id number] [facility] RADIOLOGY Technologi Radiology [facility] [address] [place] [address] 02/17/2009 00:00:00 09/02/2009 02:00:52 [id number] [facility] - [address] [address] 02/17/2009 16:53:59 02/17/2009 16:54:09 [id number] [facility] - [address] [address] 03/18/2009 13:07:39 03/18/2009 13:07:48 [id number] [facility] - [address] [address] 04/16/2009 12:55:46 04/16/2009 12:56:06 [id number] [facility] - [address] [address] 05/06/2009 13:02:19 05/06/2009 13:02:26 [id number] [facility] - [address] [address] 06/15/2009 15:27:42 06/15/2009 15:27:54 [id number] [facility] PRINCIPAL MECHANICAL ENGINEER Radiology , [address] [address] 06/15/2009 00:00:00 09/02/2009 02:00:52 [id number] [facility] - [address] [address] 08/12/2009 13:09:34 08/12/2009 13:10:02 [id number] Moncho Felton MD , [facility], [address] [place] [address] 09/10/2009 11:26:12 09/28/2009 14:53:07 [id number] MD FABBY Lewis, [facility], [address] [place] [address] 10/05/2009 07:51:54 10/28/2009 13:22:21 [id number] MD FABBY Lewis, [facility], [address] [place] [address] 10/11/2009 14:19:23 10/11/2009 17:01:43 [id number] Moncho Felton MD , [facility], [address] [place] [address] 11/23/2009 15:10:09 12/09/2009 08:16:09 [id number] MD FABBY Lewis, [facility], [address] [place] [address] 12/20/2009 11:34:25 01/18/2010 14:45:13 [id number] MD FABBY Lewis, [facility], [address] [place] [address] 01/27/2010 11:34:06 02/14/2010 12:39:27 [id number] MD FABBY Lewis, [facility], [address] [place] [address] 03/03/2010 11:01:42 03/23/2010 12:36:46 [id number] MD FABBY Lewis, [facility], [address] [place] [address] 04/05/2010 11:27:37 04/12/2010 13:50:14 [id number] Moncho Felton MD , [facility], [address] [place] [address] 05/10/2010 14:10:50 05/12/2010 08:27:14 [id number] MD FABBY Lewis, [facility], [address] [place] [address] 06/13/2010 13:56:54 07/01/2010 08:07:51 [id number] MD FABBY Lewis, [facility], [address] [place] [address] 07/22/2010 11:31:33 08/08/2010 15:46:12 [id number] [facility] PRINCIPAL MECHANICAL ENGINEER Radiology , [facility] [address] [place] [address] 07/27/2010 13:01:13 07/28/2010 13:53:16 [id number] Moncho Felton MD , [facility], [address] [place] [address] 08/19/2010 11:37:04 09/14/2010 12:45:02 [id number] MD FABBY Lewis, [facility], [address] [place] [address] 09/15/2010 11:33:58 09/19/2010 14:31:35 [id number] FP TREATMENT NURSE [facility] [address] [place] [address] 10/03/2010 14:04:13 10/07/2010 08:04:48 [id number] FP TREATMENT NURSE [facility], [facility], [address] [place] [address] 10/04/2010 14:53:12 10/07/2010 08:05:30 [id number] MD FABBY Lewis, [facility], [address] [place] [address] 10/14/2010 11:31:58 10/17/2010 14:48:38 [id number] MD FABBY Lewis, [facility], [address] [place] [address] 11/11/2010 14:28:29 11/14/2010 12:51:08 [id number] MD FABBY Lewis, [facility], [address] [place] [address] 12/09/2010 16:19:30 12/13/2010 12:37:20 [id number] Moncho Felton MD , [facility], [address] [place] [address] 01/13/2011 13:51:45 01/27/2011 13:51:44 [id number] Moncho Felton MD , [facility], [address] [place] [address] 01/23/2011 16:08:23 02/10/2011 12:17:42 [id number] Moncho Felton MD , [facility], [address] [place] [address] 02/13/2011 14:10:52 02/28/2011 15:29:30 [id number] Moncho Felton MD , [facility], [address] [place] [address] 03/14/2011 14:14:45 03/17/2011 09:11:02 [id number] MD FABBY Lewis, [facility], [address] [place] [address] 04/19/2011 14:15:40 04/21/2011 10:01:10 [id number] MD FABBY Lewis, [facility], [address] [place] [address] 06/02/2011 10:36:50 06/02/2011 12:29:33 [id number] Moncho Felton MD , [facility], [address] [place] [address] 07/26/2011 14:39:06 07/26/2011 15:53:05 [id number] Emma Bower NP , [facility], [address] [place] [address] 09/19/2011 13:48:17 09/19/2011 14:40:15 [id number] MIGUEL Paz, [facility], [address] [place] [address] 02/02/2012 15:34:35 02/05/2012 09:19:11 [id number] Latisha Best NP Endocrino lena, [facility] [address] [place] [address] 02/29/2012 13:40:29 02/29/2012 15:22:32 [id number] MIGUEL Paz, [facility], [address] [place] [address] 05/10/2012 13:43:22 05/10/2012 14:43:38 [id number] MIGUEL Paz, [facility], [address] [place] [address] 09/17/2012 15:25:59 09/17/2012 16:19:14 [id number] MIGUEL Paz, [facility], [address] [place] [address] 03/06/2013 15:26:59 03/06/2013 16:45:16 [id number] MIGUEL Paz, [facility], [address] [place] [address] 07/30/2013 16:34:26 07/30/2013 16:37:49 Influenza vaccine needed [id number] MIGUEL Paz, [facility], [address] [place] [address] 08/07/2013 15:46:24 08/12/2013 10:28:15 Benign essential hypertension 0549947 At goal - continue to work on diet ,exercise and lowering salt intake as discussed Mixed hyperlipidemia 113724707 Not at goal - increase pravastati n to 20mg - continue to work on diet and exercise as discussed Chronic pain 81338272 Uncontroll ed type 2 diabetes mellitus 125239643 A1C today. COntinue current meds. Suggest endocrine referral with Dr Riley for help managing this complex pt. [id number] MIGUEL Paz, [facility], [address] [place] [address] 02/03/2014 11:57:42 02/03/2014 12:54:14 Benign essential hypertension 2490326 At goal - continue to work on diet ,exercise and lowering salt intake as discussed Mixed hyperlipidemia 332126654 At goal - continue to work on diet and exercise as discussed Chronic pain 40027694 St able - no changes in med at this time Neuropathy due to diabetes mellitus 954886650 Stable Diabetes mellitus 75886417 Needs A1C - check today. Diabetic on insulin 818301239 [id number] MIGUEL Paz, [facility], [address] [place] [address] 06/23/2014 13:44:45 06/23/2014 14:41:54 Chronic pain 77165593 Stable - no changes in med at this time Nausea 968291338 Diabetes mellitus 32683491 5U Humalog given in office. Pt declines IV, ER eval, more insulin SHe agrees to resuming her Byetta - regular phone calls to check status Appt with Dr Riley [id number] MIGUEL Paz, [facility], [address] [place] [address] 09/08/2014 16:05:30 09/08/2014 17:08:36 Benign essential hypertension 2790939 continue to work on diet ,exercisea nd lowering salt intake as discussed Mixed hyperlipidemia 926229910 continue to work on diet and exercise as discussed Chronic pain [id number] [facility] - no changes in med at this time Nausea 544374161 Neuropathy due to diabetes mellitus 898702995 Stable Diabetes mellitus 87196958 Poorly controlled - pt has nausea with Byetta and thus not motivated to take regularly. Did best with [facility]. Appt with endo next month but has missed appts due to car problems in past. Will check labs today and try to get sooner appt [id number] MIGUEL Paz, [facility], [address] [place] [address] 01/28/2015 10:08:39 01/28/2015 10:54:16 Benign essential hypertension 6470541 at goal continue to work on diet, exercise, and lowering salt intake as discussed Mixed hyperlipidemia 279369283 not at goal of <80 - increase pravastati n to 20mg continue to work on diet and exercise as discussed Chronic pain 44089560 able - no changes in med at this time 02/11/[address] Wilburn - I will speak with doctor re pain mgmt. options Diabetes mellitus 23983443 Poorly controlled - pt has nausea with Byetta and thus not motivated to take regularly. Did best with [facility]. Referral to DM educator at [facility] to discuss other options [id number] Ayala Charles RN, BSN, [facility] DM Education , [facility] [address] [place] [address] 04/06/2015 13:32:29 04/06/2015 15:38:18 Uncontrolled type 2 diabetes mellitus 231436950 [id number] Emma Bower NP , [facility], [address] [place] [address] 04/22/2015 13:58:12 04/22/2015 15:00:03 Benign essential hypertension 5425175 at goal continue to work on diet, exercise, and lowering salt intake as discussed Mixed hyperlipidemia 425355174 not at goal of <80 - increase pravastati n to 20mg continue to work on diet and exercise as discussed Chronic pain 08210284 able - long talk with pt re decreasing opiate medication s We agreed on changing the morphine to 30mg ER tid from 60mg ER bid. Continue oxycodone tid RTC 3mos - sooner prn. Polyneurop athy due to diabetes mellitus 64387486 Renal diso rder due to type 2 diabetes mellitus 782060716 Diabetic on insulin 390796354 [id number] Mercedes Riley MD Endocrino logy, [address] [address] 05/20/2015 10:45:02 05/20/2015 11:55:02 Uncontrolled type 2 diabetes mellitus 072502425 -continue metformin er 2g daily -continue byetta 10mcg 2x/d -stop glipizide -add Humalog 15 units subcut daily with dinner, only when eating carbohydra katherine -add lantus 25units subcut once daily at the same time -adjust Humalog by 1 to 2units at a time based on 2h post meal sugars, aim for glucoses less than 180mg/dL 2 hours after meals -adjust lantus by 2 units at a time based on fasting sugars, aim for glucoses of 80 to 130mg/dL Obesity 277518765 Essential hypertension 39146899 -carvedilo l -add lisinopril 2.5mg daily Mixed hyperlipidemia 459236276 -trial off gemfibrozi l -pravastat in 10mg daily Hypothyroidism 93724823 -levothyro xine 175mcg daily [id number] Emma Bower NP , [facility], [address] [place] [address] 08/17/2015 15:54:35 08/18/2015 15:39:26 Benign essential hypertension 3963906 I10 at goal continue to work on diet, exercise, and lowering salt intake as discussed Mixed hyperlipidemia 267 876023 E78.2 not at goal of <80 - Chronic pain 49675880 G8 9.29 long talk with pt re decreasing opiate medication s - discussed risk of overdose with > 100mg opiates/da y We agreed to continuing Morphine 30mg ER tid We decreased her oxycodone to 15mg bid for breakthrou gh pain - pt did not agree and was angry Suggest she discuss her pain mgmt. with Dr Wilburn RTC 3mos - sooner prn. Renal diso rder due to type 2 diabetes mellitus 638723008 E11.29 Polyneurop athy due to diabetes mellitus 43842985 E11.42 Diabetic on insulin 1707 28191 Z79.4 Influenza vaccine needed 3027735519 106 Z28.3 [id number] Emma Bower NP , [facility], [address] [place] [address] 11/09/2015 12:00:35 11/09/2015 12:46:18 Uncontrolled type 2 diabetes mellitus 148148881 E11.65 pt has appt today with CDE - encourage to take some ownership of own health needs Renal diso rder due to type 2 diabetes mellitus 518408194 E11.29 Disorder o f nervous system due to type 2 diabetes mellitus 732995149 E11.40 Morbid obesity 840894956 E66.01 continues slow weight loss Lupus erythematosus [address] Wilburn send all records here Diabetic on insulin 1707 75320 Z79.4 poor compliance Chronic pain 53835301 G8 9.29 pt doing OK on reduced opiate dosing - no changes to day would welcome input from Dr Wilburn re pain mgmt [id number] Ayala Charles, RN, BSN, [facility] Education , [address] [address] 11/09/2015 13:36:44 11/09/2015 15:34:33 Type 2 diabetes mellitus without complication 525609343 E11.9 [id number] Emma Bower NP FP, [facility], [address] [place] [address] 01/19/2016 11:19:30 01/19/2016 12:02:55 Polyneuropathy due to diabetes mellitus 44779612 E11.42 stable Diabetic on insulin 1707 35701 Z79.4 poor compliance in past - f/u with CDE Chronic pain 84428980 G8 9.29 pt doing OK on reduced opiate dosing - no changes to day would welcome input from Dr Wilburn and Dr Russo re pain mgmt Uncontroll ed type 2 diabetes mellitus 448755158 E11.65 pt has appt today with CDE - encourage to take some ownership of own health needs Obesity 227512642 E66.9 Backache 226084277 M54.9 [id number] Emma Bower NP , [facility], [address] [place] [address] 01/11/2017 10:06:04 01/11/2017 11:16:15 Adult health examination 811572397 Z00.00 see Risk Assessment and Lifestyle Change Counseling section above Counseling 624943655 Z71 .9 Diabetic on insulin 1707 62672 Z79.4 poor compliance in past - f/u with CDE Benign ess ential hypertension 8377712 I10 continue to work on diet, exercise, and lowering salt intake as discussed Mixed hyperlipidemia 267 896507 E78.2 continue to work on diet and exercise as discussed Morbid obesity 584538889 E66.01 continues slow weight loss Type 2 georgina betes mellitus without complication 377310298 E11.9 cont to work with endo CDE.FInd ways to improve compliance .Pt really needs regular check in. - will check with CDE Gastroesop hageal reflux disease 427749999 K21.9 Hypothyroidism 20772109 E03.9 Polyneurop athy due to diabetes mellitus 78380425 E11.42 stable [id number] Mercedes Riley MD Endocrino logy, [address] [address] 01/11/2017 13:30:09 01/11/2017 15:50:14 Uncontrolled type 2 diabetes mellitus 450707976 E11.65 -check sugars 3 times daily -continue metformin er 1g 2 times daily -add jardiance 10mg daily (indicatio n uncontroll ed diaetes on metformin and insulin) -add lantus 30units subcut once daily at the same time, adjust lantus by 5 units every 3d based on fasting sugars, aim for glucoses of 80 to 130mg/dL, up to 45units daily -see Ayala diabetes ed -add back novolog 15units with meal once daily Mixed hyperlipidemia 267 331314 E78.2 -pravastat in 10mg daily-use contracept ion while on pravastati n Benign ess ential hypertension 9516299 I10 -lisinopri l Hypothyroidism 86853260 E03.9 -levothyro xine 175mcg daily for now, reconsider 150mcg daily pending tsh today [id number] Mercedes Riley MD Endocrino logy, [address] [address] 07/05/2017 12:43:47 07/05/2017 13:43:13 Type 2 diabetes mellitus without complication 223603031 E11.9 Uncontroll ed type 2 diabetes mellitus 869759639 E11.65 -check sugars 3 times daily -continue metformin er 1g 2 times daily -jardiance 10mg daily (indicatio n uncontroll ed diaetes on metformin and insulin) -lantus 30units subcut once daily at the same time, adjust lantus by 5 units every 3d based on fasting sugars, aim for glucoses of 80 to 130mg/dL, up to 45units daily -see Ayala diabetes ed -add novolog 5units subcut when drinking sweetened drinks 2 to 3 times daily -add back novolog 10 to 15units with meal once daily Mixed hyperlipidemia 267 386155 E78.2 -pravastat in 10mg daily-use contracept ion while on pravastati n Benign ess ential hypertension 8926892 I10 -lisinopri l Hypothyroidism 10798544 E03.9 -levothyro xine 175mcg daily by mouth [id number] Joie Akins RD, LDN Nutrition -[facility] [address] [place] [address] 11/26/2017 11:15:04 11/26/2017 15:27:54 Uncontrolled type 2 diabetes mellitus 050096842 E11.65 Nutrition Diagnosis: Inappropri ate intake of types of carbohydra te (NI 5.8.3) related to: lack of food planning, purchasing and preparatio n skills as evidenced by: pt self-repor maru dietary recall, BMI close to 40, and A1C of 9.3 reflecting poor glycemic control Assessment Summary: Yanely is consuming at least 60 grams a day of sugar in the form of sweetened beverages and seems resistant to giving these up (nearly all of her drinks are sweetened) . Discussed various options to try to help her limit volume of these in light of her refusal to drink water, seltzer, or artificial ly sweetened beverages. She is underconsu krishan fiber, protein, fruits and vegetables and carb intake as well as eating pattern is highly irregular and unpredicta ble. Discussed easy ways for her to eat a light snack or have a frozen convenienc e item if not up for cooking. She is at risk for running low BS if she decreases her fluid volume of sugar and doesn't start to consume complex carbs with proteins and more fiber. She is very inactive and the importance of increased physical activity along with decreased sweetened beverages was reinforced as essential toward achieving weight reduction of 10% (about 20 lb) and improving glycemic control. She does hope to be able to get dentures to help improve her chewing abilities. Pt Instructed in: - carb food sources and consistent carb eating 30-45 gm per meal, 15-20 gm per snack - estimated calorie & nutrient needs: 0392-8706 kcal/day for gradual weight loss - appropriat e portion sizes of starches - reading nutrition facts labels - plate method of eating - importance of regular physical activity - SMART goal setting and identifyin g and overcoming barriers to change Pt verbalized understand ing of above topics. Handouts: Thumbs Up booklet, Eating Right with Less Added Sugars, Eat Right with My Plate, No-Cook recipes page, Living well with diabetes sample meals handout. Food pantry list and mobile food bank options for [place], and Healthy Incentives Plan info [id number] Ky Avalos MD Endocrino logy, [address] [address] 01/11/2018 09:18:16 01/11/2018 10:06:19 Uncontrolled type 2 diabetes mellitus 274011379 E11.65 -get a bag for novolog, carry it with you -add novolog 5units subcut when drinking sweetened drinks 2 to 3 times daily -add back novolog 10 to 15units with meal once daily -check sugars 3 times daily -continue metformin er 1g 2 times daily -jardiance increase to 25mg daily (indicatio n uncontroll ed diabetes on metformin and insulin) -lantus 30units subcut once daily at the same time, adjust lantus by 5 units every 3d based on fasting sugars, aim for glucoses of 80 to 130mg/dL, up to 45units daily -see Ayala diabetes ed Type 2 georgina betes mellitus without complication 018333309 E11.9 Mixed hyperlipidemia 267 302597 E78.2 -pravastat in 10mg daily-use contracept ion while on pravastati n Benign ess ential hypertension 1130217 I10 -lisinopri l Hypothyroidism 58236020 E03.9 -levothyro xine 150mcg daily by mouth [id number] Emma Bower NP , [facility], [address] [place] [address] 03/22/2018 10:38:02 03/25/2018 08:46:26 Benign essential hypertension 7610596 I10 Blood pressure at goal Mixed hyperlipidemia 267 645880 E78.2 continue to work on diet and exercise as discussed Hypothyroidism 11065379 E03.9 stable Morbid obesity 045017802 E66.01 continues slow weight loss -plateau - enc swimming, slow frequent walks Gastroesop hageal reflux disease 945207335 K21.9 stable Diabetic on insulin 1707 92714 Z79.4 poor compliance in past - f/u with CDE Polyneurop athy due to diabetes mellitus 18339090 E11.42 stable Anemia 488750239 D64.9 [id number] Emma Bower NP , [facility], OFFICE [address] [place] [address] 04/29/2018 11:32:38 04/29/2018 12:55:15 Cobalamin deficiency 702332656 E53.8 [id number] MIGUEL Paz, [facility], OFFICE [address] [place] [address] 04/30/2018 11:36:36 04/30/2018 12:33:41 Cobalamin deficiency 889910239 E53.8 [id number] MIGUEL Paz, [facility], [address] [place] [address] 05/01/2018 11:56:03 05/01/2018 12:53:58 Cobalamin deficiency 257141592 E53.8 Blister of foot 23502699 3 S90.822A recheck Sunday at B12 appt - pt a ble to own wound care daily. [id number] MIGUEL Paz, [facility], [address] [place] [address] 05/03/2018 13:44:46 05/03/2018 14:18:10 Recurrent major depression 67726513 F33.9 stable on current meds. Enc not to isolate. Cellulitis 993450642 L03 .90 possible early cellulitis , also with dental caries - will treat with one week keflex, probiotics , daily wound care. Recheck Sunday - advised re urgent care on weekend. Dental caries 63155842 K 02.9 suggest scrupulous oral hygiene, saline rinses. f/u soon with dental. Megaloblas tic anemia due to vitamin B>12< deficiency 06094291 D53.1 B12 injection today, then rtc Sunday 05/06. Cobalamin deficiency 190 824528 E53.8 [id number] MIGUEL Paz, [facility], [address] [place] [address] 05/07/2018 11:50:00 05/09/2018 10:13:19 Open wound of foot 609583075 S91.302A wound care, recheck 05/10 when returns for B12. Disorder o f nervous system due to type 2 diabetes mellitus 819834406 E11.40 very careful with foot care now, discussed shoes, sugars have been in good control [id number] MIGUEL aPz, [facility], [address] [place] [address] 05/10/2018 09:29:36 05/10/2018 10:11:29 Cobalamin deficiency 623007765 E53.8 Open wound of foot 63439 3008 S91.302A wound care, recheck 05/10 when returns for B12. Diabetic on insulin 1707 00486 Z79.4 motivated more now by open foot wound = cont to monitor. Allergic reaction 625539 005 T78.40XA likely amox allergy - stop med. Continue scrupulous oral hygiene.en gabriela consult - no cillins in future. [id number] Emma Bower NP , [facility], [address] [place] [address] 08/07/2018 10:12:21 08/08/2018 14:40:31 Active or passive immunization 318737401 Z23 Open wound of foot, excluding toe(s) 653806430 S91.302A urgent wound care referral, xray foot to eval for osteomyeli tis = may need further imaging. Diabetic on insulin 1707 71330 Z79.4 states motivated more now by open foot wound = cont to monitor. Renal diso rder due to type 2 diabetes mellitus 280332550 E11.29 seeing endo tomorrow = may need med changes Disorder o f nervous system due to type 2 diabetes mellitus 361190709 E11.40 very careful with foot care now, discussed shoes, need for tight glucose control Uncontroll ed type 2 diabetes mellitus 096731385 E11.65 per endo tomorrow. [id number] Mercedes Riley MD Endocrino logy, [address] [address] 08/08/2018 10:31:15 08/08/2018 12:01:55 Uncontrolled type 2 diabetes mellitus 562089414 E11.65 -stop jardiance for now, repeat kidney function tests in a week, drinking extra water, and considerin g seeing a kidney doctor to discuss this further -reduce metformin er from 1000mg 2x/d to 1000mg by mouth once daily -add humalog 5units subcut when drinking sweetened drinks 2 to 3 times daily -humalog 10 to 15units with meal once daily -increase lantus 36units subcut once daily, adjust by 2 to 4units weekly, up to 56units once daily -check 4 to 5 times daily, bring in log showing 4 or more checks daily for cgms -see Ayala diabetes ed Mixed hyperlipidemia 267 540821 E78.2 -pravastat in 10mg daily-use contracept ion while on pravastati n Benign ess ential hypertension 6312839 I10 -lisinopri l Type 2 georgina betes mellitus without complication 877337783 E11.9 Hypothyroidism 16934985 E03.9 -levothyro xine 150mcg daily by mouth [id number] Emma Bower NP , [facility], [address] [place] [address] 08/29/2018 09:21:12 08/29/2018 10:44:02 Adult health examination 432994909 Z00.00 see risk assessment and lifestyle change section Depression screening 171 709095 Z13.89 depression screening tool administer ed, entered into emr, scored and discussed, time greater than 7.5 minutes Diabetic on insulin 1707 19508 Z79.4 states motivated more now by open foot wound = cont to monitor. Morbid obesity 932943885 E66.01 need to continue efforts at lifestyle changes, eating healthy on a budget. Mixed hyperlipidemia 267 564978 E78.2 continue to work on diet and exercise as discussed Benign ess ential hypertension 8529201 I10 Blood pressure at goal Disorder o f nervous system due to type 2 diabetes mellitus 373892535 E11.40 very careful with foot care now, discussed shoes, need for tight glucose control Open wound of foot 57477 3008 S91.302A wound care, has appt with wound clinic 09/05 Screening for malignant neoplasm of colon 986400581 Z12.[id number], LDN Nutrition -[facility] [address] [place] [address] 10/08/2018 11:10:34 10/08/2018 12:34:21 Uncontrolled type 2 diabetes mellitus 782226727 E11.65 Nutrition Diagnosis: Inappropri ate intake of types of carbohydra te (NI 5.8.3) related to: lack of food planning, purchasing and preparatio n skills as evidenced by: pt self-repor maru dietary recall, BMI of 40, and A1C of 9.5 reflecting poor glycemic control Assessment Summary: Discussed various options to try to help her limit volume of these in light of her refusal to drink water, seltzer, or artificial ly sweetened beverages. She is underconsu krishan fiber, protein, fruits and vegetables and carb intake as well as eating pattern is highly irregular and unpredicta ble. Discussed easy ways for her to eat a light snack or have a frozen convenienc e item if not up for cooking. She is very inactive and reinforced the importance of increased physical activity to achieve weight reduction of 10% (about 20 lb) and improved glycemic control. NOTE: In addition to left leg swelling today, she reports getting out of breath more easily recently. Asked her to make appt for this week to f/u with her PCC. Suggest referral to [employer] and also to Ayala Charles RN for Diabetes Education in early 2018. Pt Instructed in: - lower sodium eating strategies to keep intake under 2000 - carb food sources and consistent carb eating 30-45 gm per meal, 15-20 gm per snack - est calorie needs: 9668-7322 kcal/day for gradual weight loss - reading nutrition facts labels review - importance of incorporat ing regular physical activity - SMART goal setting and identifyin g and overcoming barriers to change Pt verbalized understand ing of above topics. Handouts: Eat Right with Less Sodium; DASH handout, Planning Healthy Meals diabetes meal planning brochure, sample Boost glucose control beverages to try for breakfast [id number] MIGUEL Paz, [facility], [address] [place] [address] 10/11/2018 13:41:39 10/11/2018 14:12:22 Edema of lower extremity 792723969 R60.0 check weight daily, wear compressio n stockings. Report any pain, redness , inc swelling. Morbid obesity 279072399 E66.01 need to continue efforts at lifestyle changes, eating healthy on a budget. - enc considerat ion for bariatric surgery Disorder o f nervous system due to type 2 diabetes mellitus 851409024 E11.40 very careful with foot care now, discussed shoes, need for tight glucose control [id number] Chelly Edmonds MD , [facility], [address] [place] [address] 11/18/2018 14:06:57 11/19/2018 11:02:09 Pain of left hip joint 9002742105 20423 M25.552 xray will not change her dispositio n; if she can't stand she can't go home; sent to ER, sheet sent to ER as sign-off [id number] MIGUEL Paz, [facility], [address] [place] [address] 12/11/2018 11:42:47 12/12/2018 07:15:49 Arthritis of left hip 7594940380 732814 M13.852 concern re long course of prednisone , will watch closely. Cont f/u with specialist Renal diso rder due to type 2 diabetes mellitus 991204566 E11.29 will monitor closely while on prednisone Benign ess ential hypertension 1882954 I10 Blood pressure at goal Obesity 776454813 E66.9 enc re getting through this course of prednisone and we will work with her to reduce weight again Open wound of foot 67942 3008 S91.302A wound care reviewed, close monitoring . [id number] Emma Bower NP FP, [facility], [address] [place] [address] 01/08/2019 11:19:57 01/08/2019 12:50:25 Uncontrolled type 2 diabetes mellitus 066465576 E11.65 due for labs, retinal scan done. F/u with nutrition this month Morbid obesity 515881896 E66.01 need to continue efforts at lifestyle changes, eating healthy on a budget. - enc considerat ion for bariatric surgery Recurrent major depression 09233829 F32.0 stable on current meds. Enc not to isolate. Cellulitis of left lower limb 5892910216 5017858 L03.116 needs wound clinic consult [facility]. Will call pt tomorrow to make sure appt made. Diabetic on insulin 1707 77951 Z79.4 states motivated more now by open foot wound = cont to monitor. Gastropare sis syndrome 189734025 K31.84 stable Hypothyroidism 36017381 E03.9 stable Renal diso rder due to type 2 diabetes mellitus 309856044 E11.29 will monitor closely with cellulitis , meds. Disorder o f nervous system due to type 2 diabetes mellitus 524481096 E11.40 very careful with foot care now, discussed shoes, need for tight glucose control [id number] MIGUEL Paz, [facility], [address] [place] [address] 01/21/2019 09:09:06 01/21/2019 10:08:06 Diabetic on insulin 674209111 Z79.4 states motivated more now by open foot wound = cont to monitor. Mixed hyperlipidemia 267 505446 E78.2 continue to work on diet and exercise as discussed Disorder o f nervous system due to type 2 diabetes mellitus 984293142 E11.40 very careful with foot care now, discussed shoes, need for tight glucose control Open wound of lower limb 46898597 S81.802D close monitoring , wound clinic weekly, scrupulous skin care and DMcontrol Chronic pain 31522963 G8 9.29 pt doing OK on current opiate dosing via Dr Russo - no concern for diversion [id number] Mercedes Riley MD Endocrino logy, [address] [address] 02/06/2019 13:44:15 02/06/2019 14:55:54 Type 2 diabetes mellitus without complication 119918165 E11.9 Uncontroll ed type 2 diabetes mellitus 602569658 E11.65 -see nutritioni st, reduce portions -metformin 1000mg 2x/d by mouth -lantus reduce to 30units from 38units subcut once daily, adjust by 2 to 4units weekly, up to 56units once daily -humalog with eating 3 units to 12units (if high 200s) subcut 3 times daily - metformin er 1000mg 2x/d -add trulicity 0.75mg subcut week and then adjust insulin as needed by 1 to 4units weekly until 100 to 150 again -let me know if you tolerate trulicity and want higher dose 1.5mg weekly Hypothyroidism 86458278 E03.9 -levothyro xine 150mcg daily by mouth Mixed hyperlipidemia 267 696336 E78.2 -pravastat in 10mg daily-use contracept ion while on pravastati n Benign ess ential hypertension 5038452 I10 -off lisinopril for now [id number] Ayala Charles RN, BSN, [facility] DM Education , [facility] [address] [place] [address] 02/27/2019 09:44:27 03/03/2019 08:12:04 Type 2 diabetes mellitus without complication 174187259 E11.9 Met with Yanely today for diabetes education, kindly referred by Emma Bower NP.-Yanely has had Type 2 diabetes since she was 18 years old.-She is currently being treated with Metformin ER, 500 mg, 2 tabs BID, Lantus 32 units once a day, Trulicity 0.75 mg once a week and Humalog before meals.-She was hospitaliz ed twice this year. She had arthritis in her left hip. She was placed on prednisone while she had the reactive arthritis in November and her second hospitaliz ation was in December and she had sepsis, cellulitis and DKA.-She recently started Trulicity on the of this month. She has taken 3 doses. -She is also off the prednisone completely , about 2 weeks ago.-Pt. wants a sliding scale for her Humalog insulin with meals. This scale was created for her: below 100 = 4 units 101-150 = 6 units 151-200 = 8 units 201-250 = 10 units 251-300 = 12 units 301-350 = 14 units 351-400 = 16 units-Her A1C has improved since her last visit. It is now 6.7% in February and it had been 9.5% in August.-S he brought her meter and it was downloaded . Her monthly meter average is 150 mg/dl and she is testing about 2.4x/day. She had one low in the last month.-No patterns were noted on her download. Recommenda tions:-Con tinue to test blood sugars before meals and at bedtime. Aim for 3-4x/day.- Continue to bring meter to future appointmen ts for download.- Continue Metformin ER, 500 mg, 2 tabs BID, Lantus 32 units once a day, Trulicity 0.75 mg once a week and start following the Humalog scale before meals based on your blood sugar reading before the meal:below 100 = 4 units 101-150 = 6 units 151-200 = 8 units 201-250 = 10 units 251-300 = 12 units 301-350 = 14 units 351-400 = 16 units-Plea se call with any questions or concerns. Reviewed the following: -How to take short acting insulin based on a carb ratio and correction factor.-Im portance of testing blood sugars before meals. [id number] Emma Bower NP , [facility], [address] [place] [address] 03/19/2019 10:09:50 03/19/2019 11:49:25 Benign essential hypertension 6839472 I10 Blood pressure at goal Morbid obesity 323063586 E66.01 need to continue efforts at lifestyle changes, eating healthy on a budget. - enc shanta ion for bariatric surgery, Integrated nutrition visit 03/19 with oJie Akins who has met with her for DM in the past (last in Oct 2018). A1C reflects improved control, 6.1 down from 9.5 in Aug. Not able to walk much; says taking meds as rx'd. Has D/C'd soda and lose 10 lb in the past 1.5 mos. Wants to lower her insulin dose and will be increasing Trulicity. See integrated case for more detail. Has visit w/ Ayala Charles 04/03 and f/u with nutrition 04/17. Obesity code used today. Mixed hyperlipidemia 267 808981 E78.2 continue to work on diet and exercise as discussed Hypothyroidism 87921106 E03.9 stable Uncontroll ed type 2 diabetes mellitus 851744844 E11.65 improved on trulicity. continue f/u with CDE and Endo Chronic pain 79134852 G8 9.29 pt doing OK on current opiate dosing via Dr Russo - no concern for diversion Skin ulcer 82077253 L98. 499 improved -cont vascular followup [id number] MIGUEL Paz, [facility], [address] [place] [address] 03/21/2019 11:38:48 03/24/2019 09:23:07 Peripheral vascular disease 384579445 I73.9 reassured that arm appears vascularly intact = she will discuss with her vasc surgeon at next visit. She will call with any changes in sensation left arm [id number] MIGUEL Paz, [facility], [address] [place] [address] 05/20/2019 11:46:04 05/20/2019 12:13:11 Benign essential hypertension 3007750 I10 Blood pressure at goal Diabetic on insulin 1707 07390 Z79.4 heel is almost healed up.dressin g changed daily, following with wound care every two weeks. cont to monitor. Morbid obesity 321260001 E66.01 need to continue efforts at lifestyle changes, eating healthy on a budget. - referral for bariatric consult Preoperati ve cardiovascular examination 270955177 Z01.810 Retinal hemorrhage 38114 008 H35.62 Low risk for cardiovasc ular complicati on during upcoming procedure. Cleared for surgery. Disorder o f nervous system due to type 2 diabetes mellitus 972846087 E11.40 very careful with foot care now, discussed shoes, need for tight glucose control Renal diso rder due to type 2 diabetes mellitus 049224897 E11.29 continue to monitor closely [id number] Joie Akins RD, LDN Nutrition -[facility] [address] [place] [address] 05/29/2019 09:02:57 05/29/2019 09:59:21 Uncontrolled type 2 diabetes mellitus 841850595 E11.65 Nutrition Diagnosis: Kymberly ate intake of types of carbohydra te (NI 5.8.3) related to: lack of food planning, purchasing and preparatio n skills as evidenced by: pt self-repor maru dietary recall, BMI > 39, and A1C now reduced from of 9.5 to 6.7 (Feb 2019), reflecting improved glycemic control since addition of Trulicity and more adherent to insulin rx Assessment Summary: Yanely is working on maintainin g a lower carb intake and has done well with overcoming her lifelong soda habit (rarely has, since Nov 2018); not willing to drink water, seltzer, or diet sodas, but has found Crystal Light works well for her. She says she takes 32 U Lantus in the morning, 36 in the salazar, and Humalog dose varies anywhere between 2 and 15 depending on BG prior to meals. She wasn't able to sustain checking BS 4x or more daily to be eligible for CGM, which she thinks would be very helpful for her. She has lost a few lbs in past few months and has increased her consumptio n of fiber, protein, and vegetables . Has decided to go to info session and plans to sign up for the Bariatric surgery program in [place] which she feels will be the only solution to her obesity and struggle to control her BS. She remains inactive due to physical pain (feet) and states she'll try to start taking short walks. Her weight goal is to get under 200 lb and then under 170 lb. Not sure why vitamin D level is not increasing (low at 17.8); taking 50,000 IU twice a week. To repeat A1C next week prior to scheduled 06/12/[address] Riley. Pt Instructed in: - lower sodium eating strategies to keep intake under 2000 mg/day - low to moderate potassium intake - under 2300 mg/day - carb food sources and consistent carb eating 30-45 gm per meal, 15-20 gm per snack - est calorie needs: 8176-8447 kcal/day for gradual weight loss - reading nutrition facts labels review - SMART goal setting and identifyin g and overcoming barriers to change Pt verbalized understand ing of above topics. Time in: 9:00am Time out:10:00a m Time spent counseling : 60 minutes [id number] Mercedes Riley MD Endocrino logy, [address] [address] 06/12/2019 11:25:23 06/12/2019 12:15:54 Benign essential hypertension 2138415 I10 -off lisinopril for now Hypothyroidism 88573519 E03.9 -levothyro xine 150mcg daily by mouth Uncontroll ed type 2 diabetes mellitus 208555952 E11.65 -lantus increase to 36units daily, adjust by 2 to 4units weekly, up to 56units once daily, aim for 100mg/dL fasting -humalog with eating 4 to 15units subcut 3 times daily , try 2 units more at night with larger meal- metformin er 500mg 2x/d, reduce due to lower kidney function -trulicity 1.5mg subcut week and then adjust insulin as needed by 1 to 4units weekly until 100 to 150 again Mixed hyperlipidemia 267 905384 E78.2 -pravastat in 10mg daily-use contracept ion while on pravastati n Type 2 georgina betes mellitus without complication 851480588 E11.9 Vitamin D deficiency 347 44803 E55.9 -ergocalci ferol 50,000unit s caps, 2 caps 100,000uni ts by mouth once weekly [id number] Jaya Valencia MD , [facility], [address] [place] [address] 06/14/2019 13:10:10 06/17/2019 09:52:22 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 Consider PT Diabetic foot ulcer 3710 06415 E13.621 followed by wound care/vascu lar surg - doing self home dressing changes. Disorder o f nervous system due to type 2 diabetes mellitus 774113552 E11.40 very careful with foot care now, discussed shoes, need for tight glucose control -will see what is needed for scooter approval. Mild major depression 87 389714 F32.0 emotional support - might benefit from therapy - ?in-home. Emotional support, companions hip would help. COnt to explore options Retinal hemorrhage 48655 008 H35.62 Low risk for cardiovasc ular complicati on during upcoming procedure. Cleared for surgery. [id number] Joie downey, PT Physical Therapy, [facility] [address] [place] [address] 08/01/2019 11:11:56 08/01/2019 13:18:21 Injury of right elbow region 8122269044 7445814 S59.901D [id number] Joie downey, PT Physical Therapy, [facility] [address] [place] [address] 08/07/2019 12:03:07 08/07/2019 13:39:03 Injury of right elbow region 7743019268 1557140 S59.901D [id number] Emma Bower NP , [facility], [address] [place] [address] 09/18/2019 11:00:05 09/18/2019 11:59:46 Adult health examination 390039005 Z00.00 see risk assessment and lifestyle change section Counseling 775207454 Z71 .9 Depression screening 171 533513 Z13.89 depression screening tool administer ed, entered into emr, scored and discussed, time greater than 7.5 minutes Benign ess ential hypertension 3145836 I10 Blood pressure at goal Chronic pain 81573099 G8 9.29 pt doing OK on current opiate dosing via Dr Russo - no concern for diversion Diabetic on insulin 1707 39619 Z79.4 Gastropare sis syndrome 553251468 K31.84 stable Hypothyroidism 60283977 E03.9 stable Irritable bowel syndrome 51557884 K58.9 Megaloblas tic anemia due to vitamin B>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 Mixed hyperlipidemia 267 076189 E78.2 continue to work on diet and exercise as discussed Morbid obesity 845899933 E66.01 need to continue efforts at lifestyle changes, eating healthy on a budget. - referral for bariatric consult pending labs Disorder o f nervous system due to type 2 diabetes mellitus 839013049 E11.40 very careful with foot care now, discussed shoes, need for tight glucose control Renal diso rder due to type 2 diabetes mellitus 544491102 E11.29 continue to monitor closely - recheck BMP Preoperati ve cardiovascular examination 184612158 Z01.810 low-modera te risk for cardiovasc ular complicati on during upcoming procedure. Labs pending Cataract 609618213 H26.9 scheduled for surgery left eye 09/25/19. Pain in right knee 95350 46803 13622 M25.243 [id number] Stormy Foote MD Sports Medicine, [facility] [address] [place] [address] 10/23/2019 09:18:47 10/23/2019 09:43:23 Knee pain 84622739 M25.561 Yanely is a 39-year-ol d female with right knee pain as well as an effusion and crepitus concerning for degenerati ve changes. I reviewed this likely diagnosis with her today as well as discussing treatment options. Overall her symptoms have gotten better in the last 4 weeks and she is essentiall y asymptomat ic at this point. We discussed the potential for physical therapy or corticoste roid injections in the future. We also discussed the use of Tylenol for pain. NSAIDs are relatively contraindi cated for her due to her history of kidney disease. She also has upcoming bariatric surgery in December 2019. We did discuss that if she has pain while exercising 2 now then or postoperat ively within the knee joint she may benefit from a corticoste roid injection. At this point she will return to activities as tolerated. She will obtain weightbear ing x-rays of the knee after the office visit. She will plan a follow-up with me on an as-needed basis for further care if she has any worsening symptoms in the future. [id number] Mercedes Riley MD Endocrino logy, [facility] [address] [place] [address] 12/31/2019 09:29:55 12/31/2019 10:12:23 Uncontrolled type 2 diabetes mellitus 888660960 E11.65 -trulicity 1.5mg subcut week and then adjust insulin as needed by 1 to 4units weekly until 100 to 150 again Hypothyroidism 11880660 E03.9 -levothyro xine 150mcg daily by mouth Mixed hyperlipidemia 267 706886 E78.2 -pravastat in 10mg daily-use contracept ion while on pravastati n Benign ess ential hypertension 7205642 I10 -off lisinopril for now Type 2 georgina betes mellitus without complication 691613935 E11.9 Vitamin D deficiency 347 13824 E55.9 -ergocalci ferol 50,000unit s caps, 2 caps 100,000uni ts by mouth once weekly Secondary hyperparathyroidism 62262913 E21.1 Cobalamin deficiency 190 940282 E53.8 [id number] Milton Baxter MD FP, [facility], [address] [place] [address] 01/09/2020 13:23:14 01/09/2020 14:37:16 Cellulitis of lower limb 219457837 L03.787 [id number] Emma Bower NP FP, [facility], [address] [place] [address] 03/18/2020 10:34:09 03/23/2020 13:25:51 Uncontrolled type 2 diabetes mellitus 981832621 E11.65 improved on trulicity. continue f/u with CDE and Endo Mixed hyperlipidemia 267 237376 E78.2 continue to work on diet and exercise as discussed Mild major depression 87 480232 F32.0 emotional support - might benefit from therapy - ?in-home. Emotional support, companions hip would help. COnt to explore options Benign ess ential hypertension 6646522 I10 Blood pressure at goal Hypothyroidism 85952285 E03.9 stable Neuropathy due to diabetes mellitus 350074719 E11.40 Stable Trigeminal neuralgia 316 04501 G50.0 [id number] Emma Bower NP FP, [facility], [address] [place] [address] 03/19/2020 14:32:13 03/23/2020 13:28:16 Morbid obesity 954220242 E66.01 doing well post bariatric surgery, slow steady weight loss Peripheral vascular disease 502829926 I73.9 has been problem in past = will monitor closely - suggest calling her technical specialist re persistent open are on heel. Cellulitis of lower limb 671087776 L03.119 Picture does not look like cellulitis but Yanely can develop infections suddenly. We agreed to send Rx abx and she will see how it looks tomorrow= if worse , will start meds, with probiotics . She will send picture of lesion to my email. Advised re urgent care on weekends. Call with any fever, spreading redness, pain, other concerns. [id number] Mercedes Riley MD Endocrino logy, [address] [address] 05/27/2020 12:53:07 05/27/2020 16:51:08 Benign essential hypertension 1497027 I10 -off lisinopril for now Mixed hyperlipidemia 267 899811 E78.2 -pravastat in 10mg daily-use contracept ion while on pravastati n Hypothyroidism 40400528 E03.9 -levothyro xine 150mcg daily by mouth Uncontroll ed type 2 diabetes mellitus 713011989 E11.65 -trulicity 1.5mg subcut week and then adjust insulin as needed by 1 to 4units weekly until 100 to 150 again Type 2 georgina betes mellitus without complication 185285637 E11.9 Vitamin D deficiency 347 52208 E55.9 -ergocalci ferol 50,000unit s caps, 2 caps 100,000uni ts by mouth once weekly Secondary hyperparathyroidism 14943194 E21.1 Cobalamin deficiency 190 387136 E53.8 -b12 injections [id number] Stormy Foote MD Sports Medicine, [facility] [address] [place] [address] 08/05/2020 07:46:37 08/16/2020 14:22:08 Knee pain 79440105 M25.561 Yanely is a 40-year-ol d female with right knee pain likely secondary to underlying osteoarthr itis as seen on her previous x-rays. I reviewed this diagnosis with her today as well as discussing options for treatment including physical therapy, use of Tylenol, corticoste roid injections , and future surgical interventi on. Unfortunat rasheeda due to her history of kidney disease she is unable to use NSAIDs. At this point I have given her a referral to physical therapy and she will call to set up an appointmen t. She also would like to come in for a knee joint corticoste roid injection and we will call her with the date and time for her appointmen t Osteoarthr itis of knee 597884164 M17.11 [id number] Mercedes Riley MD Endocrino logy, [address] [address] 08/11/2020 07:37:37 08/11/2020 13:40:01 Benign essential hypertension 9407917 I10 -off lisinopril for now Hypothyroidism 09057503 E03.9 -levothyro xine 125mcg by mouth once daily-tsh check over the next month Renal diso rder due to type 2 diabetes mellitus 465705313 E11.22 Uncontroll ed type 2 diabetes mellitus 703831042 E11.65 -restart trulicity 1.5mg subcut weekly due to increased sugars-exp alona other exercise start with 5min daily avoid knees, look into the pool-consi shahzad statin in the future Type 2 georgina betes mellitus without complication 124132157 E11.9 Vitamin D deficiency 347 79241 E55.9 -ergocalci ferol 50,000unit s caps, 1 cap 50,000unit s by mouth once weekly Secondary hyperparathyroidism 79781933 E21.1 Cobalamin deficiency 190 704924 E53.8 -b12 injections [id number] Stormy Foote MD Sports Medicine, [address] [address] 09/06/2020 06:29:15 09/06/2020 13:30:40 Knee pain 35765819 M25.561 Yanely is a 40-year-ol d female with right knee pain secondary to osteoarthr itis as seen on her previous x-rays. I reviewed this diagnosis again with her today as well as discussing options for treatment including physical therapy, use of Tylenol, corticoste roid injections , and future surgical interventi on. Unfortunat rasheeda due to her history of kidney disease she is unable to use NSAIDs. Due to her pain she underwent a right knee joint steroid injection under US guidance today in the office. She tolerated this well without complicati on. She will ice and rest for the next week and gradually resume normal activity. She is planning to start a course of PT in a few weeks. She will plan to f/u as needed for further care. Osteoarthr itis of knee 634278227 M17.11 [id number] Shirin Guerra MD , [facility], [address] [place] [address] 12/01/2020 13:37:44 12/09/2020 16:56:33 Benign essential hypertension 7195335 I10 Not at goal - f/u with cardiology Hypothyroidism 65386964 E03.9 stable Uncontroll ed type 2 diabetes mellitus 723597612 E11.65 improved on trulicity. continue f/u with CDE and Endo Insomnia 236274154 G47.0 0 eszopiclon e not covered = trial of Belsomra for prn use only. f/u to discuss effect Adult heal th examination 066598013 Z00.00 see risk assessment and lifestyle change section Counseling 992234517 Z71 .9 Essential hypertension 43998685 I10 Cont f/u w/ Cardiology Preoperati ve cardiovascular examination 470539932 Z01.810 low for cardiovasc ular complicati on during upcoming ophthalmol ogic procedure. Labs showing CKD 3. BP stable. [id number] Mercedes Riley MD Endocrino logy, [facility] [address] [place] [address] 03/08/2021 10:19:54 03/08/2021 19:26:59 Benign essential hypertension 1450938 I10 -off lisinopril for now Diabetic on insulin 1707 25158 Z79.4 Morbid obesity 031617775 E66.01 Mixed hyperlipidemia 267 880617 E78.2 Hypothyroidism 42183379 E03.9 12/03/20 pth 108, tsh 0.26. TSH is low and suggests that thyroid hormone doses are too high. I would suggest reducing your thyroid hormone dose from levothyrox ine 125mcg by mouth once daily to levothyrox ine 112mcg by mouth once daily. I will order repeat thyroid tests in 2mo. Please make a follow up appointmen t to review when convenient . Renal diso rder due to type 2 diabetes mellitus 787270683 E11.22 Uncontroll ed type 2 diabetes mellitus 100375660 E11.65 -trulicity 3mg subcut weekly due to increased sugars -explore other exercise start with 5min daily avoid knees, look into the pool -consider statin in the future Type 2 georgina betes mellitus without complication 829379593 E11.9 Vitamin D deficiency 347 65608 E55.9 -ergocalci ferol 50,000unit s caps, 1 cap 50,000unit s by mouth once weekly Secondary hyperparathyroidism 73277217 E21.1 Hyperparat hyroidism is likely secondary to vitamin d deficiency , chronic renal insufficie ncy, and insufficie nt calcium intake. I agree with restarting vitamin d supplement ation weekly, which had been stopped in the Summer. I prefer to aim above 20 to 30, and believe this should help some. I suggest continuing 4 servings dairy daily. I think higher doses of calcium are needed due to gastric sleeve, thus I agree with adding calcium citrate 1000mg tabs / 211mg calcium tabs, 1 tab by mouth twice daily. I also recommend reviewing Dr. Lennon. We also reviewed the risk of heart disease with calcium supplement ation. -you will discuss with Dr. Lennon and return as needed to discuss with me in the future -I suggest repeating parathyroi d hormone, calcium, creatinine , magnesium and 25oh vitamin d 2 to 3mo Cobalamin deficiency 190 478768 E53.8 -b12 injections [id number] Catrina Nichols DO , [facility], [address] [place] [address] 03/08/2021 14:43:51 03/09/2021 10:52:10 Candidiasis of skin 37872730 B37.2 Pt with recurring laila of the skin underneath pannus 2/2 excess skin 2/2 gastric sleeve surgery about 1 year ago. Will send nystatin powder to pharmacy. Please keep area clean and dry, only touch with clean hands so as not to introduce bacteria to the area. Call with new/worsen ing symptoms or if no improvemen t. Pt agrees with plan. History of sleeve gastrectomy 5467670686 06758 Z90.3 Now with excess skin/ivon s which creates an environmen t where yeast can easily grow. Plan as above. Excessive skin and subcutaneous tissue 266132532 L98.7 Likely cause of patient's recurring candidal skin infections . Plan as above. [id number] Mercedes Riley MD Endocrino logy, [facility] [address] [place] [address] 06/01/2021 13:33:43 06/01/2021 15:23:15 Uncontrolled type 2 diabetes mellitus 116430684 E11.65 -trulicity 4.5mg subcut weekly due to increased sugars -explore other exercise start with 5min daily avoid knees, look into the pool -consider statin in the future Hypothyroidism 72950022 E03.9 -levothyro xine 112mcg by mouth once daily Renal diso rder due to type 2 diabetes mellitus 007384181 E11.22 Diabetic on insulin 1707 15038 Z79.4 Secondary hyperthyroidism 085678096 E05.90 -please start calcium citrate 1000mg tabs / 211mg calcium tabs, 1 tab by mouth twice daily. Benign ess ential hypertension 8036392 I10 -off lisinopril for now Morbid obesity 771857336 E66.01 Mixed hyperlipidemia 267 598749 E78.2 Type 2 georgina betes mellitus without complication 780787145 E11.9 Vitamin D deficiency 347 50474 E55.9 -ergocalci ferol 50,000unit s caps, 1 cap 50,000unit s by mouth once weekly Secondary hyperparathyroidism 72412229 E21.1 Hyperparat hyroidism is likely due to vitamin d deficiency , chronic renal insufficie ncy, and insufficie nt calcium intake. I agree with restarting vitamin d supplement ation weekly, which had been stopped in the Summer. I prefer to aim above 20 to 30, and believe this should help some. I suggest continuing 4 servings dairy daily. I think higher doses of calcium are needed due to gastric sleeve, thus I agree with adding calcium citrate 1000mg tabs / 211mg calcium tabs, 1 tab by mouth twice daily. I also recommend reviewing Dr. Lennon. We also reviewed the risk of heart disease with calcium supplement ation. -you will discuss with Dr. Lennon and return as needed to discuss with me in the future -I suggest repeating parathyroi d hormone, calcium, creatinine , magnesium and 25oh vitamin d 2 to 3mo Cobalamin deficiency 190 501586 E53.8 -b12 injections [id number] KRISTIAN Ferguson , [facility], [address] [place] [address] 07/21/2021 09:51:29 07/21/2021 10:50:32 Anemia 285658301 D64.9 HGB 10 02/2021Iron and b12 deficiency .Has not had recent b12 injections , prescribed through [facility] .Should have appt's every few months.Lab work today. Contact [facility] for further informatio n.F/u w/ CN in 1-2 mos. Benign ess ential hypertension 6036211 I10 Managed by nephrologi st, Dr. LennonPer Dr. Lennon, goal is to be below 140/90Rece ntly on new BP medication . Contact Dr. Lennon for further informatio n.F/u w/ CN in 1-2 mos. Chronic ki dney disease stage 3 910216364 N18.30 GFR 32 02/2021In care w/ nephrologi st Dr. Lennon. Contact Dr. Lennon for further informatio n. Hypothyroidism 33555422 E03.9 Lab work today Megaloblas tic anemia due to vitamin B>12< deficiency 75386325 D53.1 Lab work today. Has not been doing monthly supplement ation.F/u w/ CN in 1-2 mos. 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 Denies increased urination or thirst.Bas antonio neuropathy , not worsening. F/u w/ CN in 1-2 mos. History of deep vein thrombosis 727376491 Z86.718 Hx of DVT in arm while hospitaliz ed.Dx as provoked and is not on anticoagul ation therapy. Contact [facility] for further informatio n. F/u w/ CN in 1-2 mos. Pre-surger y evaluation 102191560 Z01.818 Patient at moderate risk for cardiovasc ular complicati ons during upcoming cataract repair. Lung exam WNL, clear to auscultati on. Cardiovasc ular exam, WNL, RRR. No hx of cardiac episodes w/ exception of tachycardi a. [id number] Lilliam Boswell MD , [facility], [address] [place] [address] 09/07/2021 15:19:58 09/07/2021 15:50:54 Peripheral vascular disease 402135285 I73.9 no open areas at present - scrupulous foot care. Active or passive immunization 719113706 Z23 Benign ess ential hypertension 7369213 I10 Not at goal - f/u with nephrology . 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 Call with new/worsen ing symptoms or if no improvemen t. Pt agrees with plan. Intentiona l weight loss 156462721 R63.8 S/p surgical interventi on, now with recurrent rash 2/2 skin folds under pannus. [id number] Stormy Foote MD Sports Medicine, [address] [address] 10/19/2021 13:37:10 10/19/2021 14:37:10 Pain of shoulder region 90797706 M25.512 Yanely is a 41-year-ol d female with left shoulder pain due to impingemen t syndrome and rotator cuff tendinosis . I reviewed this diagnosis with her today as well as discussing treatment. I have advised a course of physical therapy and she was given a referral and will call to set up an appointmen t. We also discussed avoiding overhead weightlift ing in the short-term to reduce rotator cuff irritation . She we will plan to follow up with me in 8 weeks for reevaluati on if she is having persistent symptoms. [id number] Shirin Guerra MD , [facility], [address] [place] [address] 01/04/2022 10:48:18 01/08/2022 12:01:50 Benign essential hypertension 2341549 I10 Not at goal <130/80- f/u with nephrology . Report readings >140/90 Uncontroll ed type 2 diabetes mellitus 607394822 E11.65 improved on trulicity. continue f/u with CDE and Endo Chronic ki dney disease stage 4 179313813 N18.4 Will recheck lab today and urine for protein.Ur ine was difficult to produce - waited 2 hours while hydrating. 3+ blood and protein.Al l labs sent to Dr Lennon.On speaking to pt later, she states has her menses and not using tampon. Will repeat the urine after menses finished. [id number] Shirin Guerra MD , [facility], [address] [place] [address] 03/15/2022 11:37:58 04/06/2022 14:07:47 Adult health examination 257462516 Z00.00 see risk assessment and lifestyle change sectionwil l complete remainder of PE next visit - most of today visit spent in counseling re depression Depression screening 171 643801 Z13.31 depression screening tool administer ed, entered into emr, scored and discussed, time greater than 7.5 minutes Screening for alcohol abuse 671476917 Z13.39 Counseling 272808477 Z13 .6 including cardiovasc ular risk reduction counseling Chronic ki dney disease stage 4 605866816 N18.4 will send labs and OV notes to Dr Lennon Moderate r ecurrent major depression 06349738 F33.1 long talk re self care, mgmt of depression .Will complete forms for job retraining .Close monitoring [id number] Shirin Guerra MD , [facility], [address] [place] [address] 03/16/2022 09:47:31 05/10/2022 13:47:44 Employment problem 88160719 Z56.9 forms completed with pt for [employer] retraining options. [id number] Catrina Nichols DO , [facility], [address] [place] [address] 07/24/2022 14:45:27 07/24/2022 15:04:02 Edema of lower extremity 052638034 R60.0 Chronic, improves in the mornings. Ok to wear compressio n stockings. Should get up and move when possible. Chronic ki dney disease stage 3 826253300 N18.30 Peripheral vascular disease 204741474 I73.9 Likely contributi ng to patient's edema. See above. Injury of elbow 46652864 4 S59.901A Chronic issue since fall a few years ago. Referred to sports med for further evaluation . [id number] Tatiana Zuleta D.O. , [facility], [address] [place] [address] 08/19/2022 12:44:08 08/19/2022 13:52:26 Acute upper respiratory infection 12661265 J06.9 Acute sinusitis 17397261 J01.90 will tx for sinusitisd oxy 100 mg bid x 7 dayspush fluids, mucinex, tylenolf/u if sxs not improvings trep was negpcr pending- advised on quarantine [id number] Stormy Foote MD Sports Medicine, [address] [address] 08/23/2022 09:48:57 08/23/2022 15:23:56 Ulnar nerve entrapment at elbow 523379824 G56.21 Yanely is a 42-year-ol d female with right arm pain and sensory symptoms due to cubital tunnel syndrome. I reviewed this diagnosis with her today as well as discussing treatment. We discussed appropriat e sleep modificati ons working to keep the elbow in extension at night which hopefully will help alleviate her symptoms. I have also given her a referral to occupation al therapy and she will call to set up an appointmen t. We discussed possible surgical interventi on if she has persistent or worsening symptoms. She will plan to follow-up with me in 8-10 weeks if her symptoms are not improving. Pain of elbow region 743 51914 M25.265 [id number] Shirin Guerra MD , [facility], [address] [place] [address] 12/27/2022 16:38:15 12/28/2022 09:20:16 Essential hypertension 16995531 I10 Cont f/u w/ Cardiology and nephrology Mixed hyperlipidemia 267 991909 E78.2 Cholestero l is at goalContin ue to work on diet and exercise as discussed Chronic ki dney disease stage 4 [address]001979 [address]18[address] Abiodun Moses athy due to diabetes mellitus 30033659 E11.65 phoaskE2P 5.8 - doing well on Trulicity Secondary hyperparathyroidism 99702761 E21.1 followed by endo Moderate r ecurrent major depression 36853477 F33.1 stable - no meds at present Peripheral vascular disease 778342913 I73.9 no open areas at present - scrupulous foot care. Disturbanc e of attention 19095063 R41.715 [id number] Mercedes Riley MD Endocrino logy, [address] [address] 03/15/2023 14:21:45 03/16/2023 08:26:22 Uncontrolled type 2 diabetes mellitus 896662008 E11.65 -trulicity 4.5mg subcut weekly Renal diso rder due to type 2 diabetes mellitus 515961922 E11.22 N18.30 Diabetic on insulin 1707 60293 Z79.4 Hypothyroidism 25113491 E03.9 -levothyro xine 112mcg by mouth once daily Secondary hyperthyroidism 049826886 E05.90 - calcium citrate 1000mg tabs / 211mg calcium tabs, 1 tab by mouth twice daily. Hyperparathyroidism 6699 9008 E21.1 Benign ess ential hypertension 7415237 I10 -off lisinopril for now Mixed hyperlipidemia 267 633850 E78.2 Type 2 georgina betes mellitus without complication 210885659 E11.9 Vitamin D deficiency 347 93057 E55.9 -ergocalci ferol 50,000unit s caps, 1 cap 50,000unit s by mouth once weekly Secondary hyperparathyroidism 56540774 E21.1 Hyperparat hyroidism is likely due to vitamin d deficiency , chronic renal insufficie ncy, and insufficie nt calcium intake. Cobalamin deficiency 190 737449 E53.8 -b12 injections [id number] Shirin Guerra MD , [facility], [address] [place] [address] 03/16/2023 11:25:55 03/17/2023 09:27:45 Adult health examination 895909453 Z00.00 see risk assessment and lifestyle change sectionwil l complete remainder of PE next visit - most of today visit spent in counseling re depression Depression screening 171 123661 Z13.31 depression screening tool administer ed Screening for alcohol abuse 064212416 Z13.39 Alcohol use screening tool administer ed Essential hypertension 14353935 I10 Cont f/u w/ Cardiology and nephrology Mixed hyperlipidemia 267 129015 E78.2 Cholestero l is at goal Continue to work on diet and exercise as discussed Chronic ki dney disease stage 4 554203958 N18.[address] Lennon Vitamin B1 2 deficiency (non anemic) 65449321 E53.8 Disorder o f nervous system due to type 2 diabetes mellitus 891471981 E11.40 very careful with foot care now, discussed shoes, need for tight glucose control Active or passive immunization 615197841 Z23 Anemia 860193689 D64.9 [id number] Poppy Shokobytari . , [facility], [address] [place] [address] 04/29/2023 11:12:14 04/30/2023 13:28:29 Dysuria 22156748 R30.0 Patient with urinary symptoms. UA is positiveHi story and exam and urinalysis consistent with UTI.No symptoms of pyelonephr itis.Low risk of . Will send urine for culture. will treat empiricall y with low dose bactrim with CKD 4. watch for sun sensitivit y. push fluids.Dis cussed supportive and preventive measures.P atient instructed to follow up if not better or with new symptoms. Screening mammography 24 461756 Z12.31 due for mammogram. [id number] Catrina Nichols DO , [facility], [address] [place] [address] 08/08/2023 12:17:26 08/08/2023 12:45:07 Benign essential hypertension 3908805 I10 F/u q4 months. Elevated today as patient did not take medication this morning. Advised to check at home tomorrow after taking medication & send in via portal. Chronic ki dney disease stage 3 552042923 N18[address] Lennon, sees q6 months. Diabetic on insulin 1707 17955 Z79.4 Has been stable. Disorder o f nervous system due to type 2 diabetes mellitus 318860629 E11.40 Gastropare sis syndrome 969370674 K31.84 Hypothyroidism 01656466 E03.9 Has lost some weight, TSH low. History of bariatric surgical procedure 870629663 Z98.84 In 2019. Mixed hyperlipidemia 267 729646 E78.2 At goal, continue current regimen. Morbid obesity 539054799 E66.01 S/p bariatric surgery. Exercising , low carb diet. Active or passive immunization 780006417 Z23 [id number] Catrina Nichols DO , [facility], [address] [place] [address] 09/01/2023 11:02:39 09/01/2023 12:43:24 Fall W19.XXXD At [facility] on - was seen in [place] ED, no broken bones. Spasm 51296884 R25.2 Right Ribs s/p fallUnable to take ibuprofen s/t kidney diseaseAlr danilo on morphine & oxycodone, but will increase cyclobenza salud to BID x 2 wksPractic e RICE to treat soft tissue injuries. Rest. Ice for 20 minutes wrapped in a towel, repeat several times a day. Compress - wrap with a 4 inch nicole bandage. Elevate above level of heart for 20 minutes several times a day. Pain in right hand 06254 63740 03197 M79.641 Swelling s/p fall.Will Xray next week when swelling goes down.Ice twice daily & wrap as needed. [id number] Natasha George MD , [facility], [address] [place] [address] 09/07/2023 17:09:13 09/07/2023 17:59:30 Fall W19.XXXA At [facility] on - was seen in [place] ED, no broken bones. Spasm of back muscles 20 2344175 M62.830 Right shoulder blade and back region is painful and feels like it is clicking .Noticed this more over the last few days.Unabl e to take ibuprofen s/t kidney diseaseAlr danilo on morphine & oxycodone, but will increase cyclobenza salud to BID x 2 wksPractic e RICE to treat soft tissue injuries. Rest. Ice for 20 minutes wrapped in a towel, repeat several times a day. Compress - wrap with a 4 inch nicole bandage. Elevate above level of heart for 20 minutes several times a day.Did not get scapula/sp inal x-ray in ER at the time of injury - this pain started later.Will order XR to rule out acute injury. Arthritis of right knee [id number] 551645 M13.861 2019 XR: Mild degenerati ve change in the medial and patellofem oralcompar tments. Probable suprapatel lar effusion.H ad XR at [place] ER day of fall - no acute fractures. Recent fall with impact to the right knee causing acute flare up of the arthritis. Last CCS was a couple of years ago with Dr. Foote. Is wondering if she can be referred back to Dr. Foote for repeat. Advised acute injuries typically resolve with time and give it a couple of weeks of rest and heat/ice, voltaren gel, compressio n, conservati ve measures, tylenol. Referral placed to schedule if pain persists. [id number] DO FABBY Rivera, [facility], [address] [place] [address] 01/03/2024 11:38:25 01/03/2024 15:41:06 Chronic kidney disease stage 4 675436950 N18.4 Pt following with nephrology , next appt January 20. Will get repeat labs. He is aware of recent decline. 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 Benign ess ential hypertension 6776550 I10 Pt ran out last week, had been unable to get renewal from Nephro. SHe is seeing in a couple of weeks. Pt asked to send in BP. Diabetic on insulin 1707 36690 Z79.4 Stable on current regimen. Disorder o f nervous system due to type 2 diabetes mellitus 623451245 E11.40 Stable on current regimen. Renal diso rder due to type 2 diabetes mellitus 571396135 E11.22 N18.30 Stable on current regimen. Uncontroll ed type 2 diabetes mellitus 667382524 E11.65 Stable on current regimen. Vitamin D deficiency 347 04621 E55.9 Refill sent to pharmacy. History of bariatric surgical procedure 021485078 Z98.84 In 2019. Follows with surgeon who checks labs etc. [id number] DO FABBY Rivera, [facility], [address] [place] [address] 03/28/2024 11:04:44 03/28/2024 12:11:08 Adult health examination 366980169 Z00.00 pt reports pap done in January this year and was normal. will request resultsmam mo due 2024 Depression screening 171 986029 Z13.31 depression screening tool administer ed Screening for alcohol abuse 780530302 Z13.39 Alcohol use screening tool administer ed Screening for disorder 748703184 Z13.89 Today we screened for, reviewed, and discussed ways to help manage depression . Many patients live with symptoms of depression . Tools that can help manage these symptoms include good sleep hygiene, regular daily activity, meditation , and mindfulnes s practices. Having good supports from friends, family and therapists are beneficial . Occasional ly medication s can be used. Benign ess ential hypertension 5497104 I10 Recenlty started hydralazin e, forgot to take BP meds this morning. please take at home after taking meds and report home BP results. Chronic pain 18189516 G8 9.29 On CSRP. Diabetic on insulin 1707 47029 Z79.4 Stable on current regimen. Disorder o f nervous system due to type 2 diabetes mellitus 144553458 E11.40 Stable on current regimen. Gastroesop hageal reflux disease 721507972 K21.9 Stable on PPI. Gastropare sis syndrome 564206806 K31.84 Stable. Hypothyroidism 67492048 E03.9 Stable, cont current regimen. Irritable bowel syndrome 02350750 K58.9 Stable. Lupus erythematosus 2008 63609 L93.0 Pt following closely with nephrology . Megaloblas tic anemia due to vitamin B>12< deficiency 81427269 D53.1 2/2 bariatric surgery. Cont supplement s. 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 Morbid obesity 175970957 E66.01 S/p bariatric surgery. Exercising , low carb diet. Peripheral vascular disease 968989944 I73.9 Likely contributi ng to patient's edema. See above. Renal diso rder due to type 2 diabetes mellitus 529879168 E11.22 N18.30 Worsened by lupus, perioperat kell NSAIDS (per patient report). Following closely with nephrology . Trigeminal neuralgia 316 37658 G50.0 Stable. Uncontroll ed type 2 diabetes mellitus 858487572 E11.65 Stable on current regimen. End-stage renal disease 33952389 N18.[address] Lennon, being placed on transplant list. Moderate r ecurrent major depression 33480617 F33.1 Discussed phq9, sxs related to multiple medical conditions pt is dealing with.pt will call if needing additional help with this. Edema 082639558 R60.9 Likely 2/2 kidney disease. Our office with call nephro office to report 15lb weight gain etc for recs. Anemia in chronic kidney disease 373047351 D63.1 Secondary hyperparathyroidism 89137772 E21.1 Per endo note 2/2 renal insuff, low vit d and calcium intake. Cont supps and following with endo. Pre-surger y evaluation 485724575 Z01.818 ADDENDUM: Pt is moderate risk for low risk procedure, class III per RCRI. Pt planning to have upcoming dental surgery without anesthesia to reduce risk of complicati on. [id number] NICKI DAWSON DO , [facility], [address] [place] [address] 04/14/2024 16:37:58 04/15/2024 15:07:23 Allergic reaction 213766522 T78.40XA Pleasant 44-year-ol d patient presenting for virtual visit to discuss rash on her left arm. Patient suspects that the chlorhexid ine site preparatio n is the culprit. She has had kidney biopsy as well as IV placement with chlorhexid ine site preparatio n resulting in rash approximat rasheeda 24-48 hours after exposure. The rash typically last 1-2 weeks and then resolves. Following a kidney biopsy she developed a rash on her torso where chlorhexid ine had been used. She also reports chlorhexid ine mouth wash has caused her oral irritation . She has underlying adhesive sensitivit y. Discussed topical steroid to be applied twice daily to area of rash.We will add chlorhexid ine to allergy list and provide patient with link knitting machine operator referral for follow-up assessment . [id number] Mercedes Riley MD Endocrino logy, [facility] [address] [place] [address] 08/20/2024 10:05:28 08/20/2024 11:04:18 Uncontrolled type 2 diabetes mellitus 308385668 E11.65 -trulicity 4.5mg subcut weekly -reason for contour next meter is this would not be affected by icodextrin , which might be used in peritoneal dialysate, please discuss dialysate with nephrology and the effects on sugar monitoring , this is the reason for a prior authorizat ion Diabetic on insulin 1707 93385 Z79.4 Renal diso rder due to type 2 diabetes mellitus 485045281 E11.22 N18.30 Hypothyroidism 65013055 E03.9 -levothyro xine 100mcg by mouth once daily Hyperparathyroidism 6699 9008 E21.1 Benign ess ential hypertension 1804714 I10 -off lisinopril for now Mixed hyperlipidemia 267 688360 E78.2 Type 2 georgina betes mellitus without complication 977165284 E11.9 Vitamin D deficiency 347 11548 E55.9 -ergocalci ferol 50,000unit s caps, 1 cap 50,000unit s by mouth once weekly Secondary hyperparathyroidism 14701578 E21.1 Hyperparat hyroidism is likely due to chronic renal insufficie ncy Cobalamin deficiency 190 985797 E53.8 -b12 injections [id number] DO FABBY Rivera, [facility], [address] [place] [address] 11/13/2024 10:49:41 11/14/2024 10:59:38 End stage renal failure on dialysis 997858360 N18.6 reviewed dialysis note, nephro note, bmp from dialysis Benign ess ential hypertension 2541424 I10 working with dialysis Diabetic on insulin 1707 41406 Z79.4 await labs from dialysis Disorder o f nervous system due to type 2 diabetes mellitus 568439326 E11.40 Stable on current regimen. 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 Mixed hyperlipidemia 267 155720 E78.2 At goal, continue current regimen. Renal diso rder due to type 2 diabetes mellitus 802433119 E11.21 E11.22 N18.30 Hyperglyce isaiah due to type 2 diabetes mellitus 2012827494 67040 E11.65 Gastropare sis syndrome 072877027 K31.84 Stable. Screening mammography 24 370174 Z12.31 Chronic ki dney disease stage 5 626349677 N18.5 [id number] DO FABBY Rivera, [facility], [address] [place] [address] 12/09/2024 13:28:28 12/11/2024 13:31:20 End stage renal failure on dialysis 007812021 N18.6 reviewed dialysis note, nephro note, bmp from dialysis Adult heal th examination 202824371 Z00.00 pt reports pap done in January this year and was normal. will request resultsmam mo due 2024 Lupus erythematosus 2008 84252 L93.0 Pt following closely with nephrology . 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 Mixed hyperlipidemia 267 482080 E78.2 At goal, continue current regimen. Renal diso rder due to type 2 diabetes mellitus 865593909 E11.21 E11.22 N18.30 Megaloblas tic anemia due to vitamin B>12< deficiency 92363642 D53.1 12/07 bariatric surgery. Cont supplement s. Body mass index 30+ - obesity 383749562 Z68.31 Hypothyroidism 56917221 E03.9 [id number] DO FABBY WALL, [facility], [address] [place] [address] 01/19/2025 12:29:24 01/19/2025 13:14:15 End stage renal failure on dialysis 546673167 N18.6 reviewed dialysis note, nephro note, bmp from dialysis. Request most recent labs performed last week for any noted electrolyt e abnormalit ies. Patient states albumin has been low with PD center advising protein shakes to supplement PD losses. Chronic Kidney Disease on Peritoneal DialysisOn peritoneal dialysis since September for chronic kidney disease, possibly secondary to lupus or diabetes. Experienci ng hypotensio n and muscle pain, potentiall y related to dialysis. Low albumin and elevated phosphorus managed with dietary adjustment s and phosphate binders. Albumin remains low, necessitat ing increased protein intake.- Obtain recent lab results to assess electrolyt e levels.- Encourage high protein diet and use of protein shakes to address low albumin.- Monitor phosphorus levels and ensure adherence to phosphate binders. Lupus erythematosus 2008 79109 L93.0 Pt following closely with nephrology . 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 Mixed hyperlipidemia 267 395853 E78.2 At goal, continue current regimen. Megaloblas tic anemia due to vitamin B>12< deficiency 68959511 D53.1 2/2 bariatric surgery. Cont supplement s. Acute low back pain 2788 17537 M54.50 Muscle Pain and Weakness Significan t muscle soreness and weakness, particular ly in legs and back, with sensation of bruising upon pressure. Severe enough to impede walking. Differenti al diagnosis includes dialysis-r elated issues, electrolyt e imbalances , or exacerbati on of autoimmune conditions . Hypotensio n may also be a factor. - Order x-ray to assess for potential aggravatio n of old compressio n fracture. - Contact PD nurse to discuss potential fluid adjustment s. - Consider referral to rheumatolo gist or learning solutions specialist if symptoms persist. Hypotensive episode 6776 3001 I95.9 Significan tly low blood pressure readings, possibly related to PD regimen due to excessive fluid removal. Risk of myocardial infarction and reduced kidney perfusion, especially concerning given ongoing urine production . - Contact PD nurse to discuss potential adjustment s to dialysis regimen. - Advise monitoring blood pressure at home and report readings under 90/60 mmHg. - Consider reducing losartan dose if blood pressure remains low. - Discuss potential for IV fluids with PD nurse. [id number] Natasha George MD , [facility], [address] [place] [address] 02/11/2025 11:53:45 02/12/2025 13:28:21 Ulcer of right foot 469526897 L97.519 small ucleration right foot below big [place]ewell controlled DM, ES renal disease dialysis pttx cellulitis and wound caref/u if not healingclo se surveillan ce labs with renal team Cellulitis of right foot [id number] L03.115 tx w doxyno systemic sxday 2 of noted skin sxf/u if not healing [id number] Catrina Nichols DO , [facility], [address] [place] [address] 04/03/2025 11:04:00 04/03/2025 11:59:44 Adult health examination [id number] Z00.00 pt reports pap done in January this year and was normal. will request resultsmam mo due 2024pap due 2025 Depression screening 171 397727 Z13.31 depression screening tool administer ed Screening for alcohol abuse [id number] Z13.39 Alcohol use screening tool administer ed Cardiomyopathy [id number] I42.9 Following with cardiology . Intestinal malabsorption 543586222 K90.9 taking muiltivita min. Anemia in chronic kidney disease 858337694 D63.1 labs pending from dialysis Benign ess ential hypertension 8258691 I10 at goal, cont current regimen. Disorder o f nervous system due to type 2 diabetes mellitus 227685283 E11.40 Stable on current regimen. Gastroesop hageal reflux disease 045657126 K21.9 Stable on PPI. Gastropare sis syndrome 358809992 K31.84 Stable. Hypothyroidism 80145914 E03.9 Lupus erythematosus 2008 58899 L93.0 Pt following closely with nephrology . 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 Renal diso rder due to type 2 diabetes mellitus 377548656 E11.21 E11.22 N18.30 Screening for disorder 525406375 Z13.89 Today we screened for, reviewed, and discussed ways to help manage depression . Many patients live with symptoms of depression . Tools that can help manage these symptoms include good sleep hygiene, regular daily activity, meditation , and mindfulnes s practices. Having good supports from friends, family and therapists are beneficial . Occasional ly medication s can be used. Chronic pain 51737403 G8 9.29 On CSRP. Diabetic on insulin 1707 69205 Z79.4 Stable on current regimen. Irritable bowel syndrome 96559068 K58.9 Stable. Megaloblas tic anemia due to vitamin B>12< deficiency 36330165 D53.1 2/2 bariatric surgery. Cont supplement s. Morbid obesity 831420158 E66.01 S/p bariatric surgery. Exercising , low carb diet. End-stage renal disease 66614307 N18.[address] Lennon, on transplant list. Moderate r ecurrent major depression 82380338 F33.1 Discussed phq9, sxs related to multiple medical conditions pt is dealing with.pt will call if needing additional help with this. Secondary hyperparathyroidism 83902947 E21.1 2/2 renal insuff, low vit d and calcium intake. Cont supps and following with endo. Counseled by member of primary health care team 075128474 Z71.9 Today we discussed ways to reduce your 10-year cardiovasc ular disease risk. Things that decrease risk for cardiovasc ular events include eating a diet high in fiber (fruits and vegetables ) and low in simple carbohydra katherine (bread, rice, pasta, alcohol, potatoes), decreasing processed foods, limiting juice and alcohol, limiting saturated fats (butter, ice cream, and cheeses), and adding regular daily activity. Having blood pressure that is <130/80. Having well controlled cholestero l (LDL and triglyceri shirley) by eating a healthy diet and taking medication s when necessary. Managing daily stress with meditation or yoga. Depending on your other cardiovasc ular risks your practition er may recommend taking daily aspirin. Goals Section Goal Description Progress Status Start Date LastModified by Organization Details LastModified Time Chronic Disease Symptom Managemen t Patient will monitor chronic conditions, and will notify healthcare team immediately of changes in condition. improving active 2023 Charlene Jose RN Information not available 11/21/2024 21:59:02 Heart Healthy Diet Patient will report heart healthy diet low in concentrated carbohydrates, fats, and salts. Strongly consider body and fender mechanic apprentice referral for customized diet plan to address diabetes, renal issues, possible malabsorption from GI surgery in past. Larry active 2023 Charlene Jose RN Information not available 09/04/2024 14:52:26 Exercise Regularly Patient will report exercising regularly as recommended and cleared by healthcare team. Larry active 2023 Charlene Jose RN Information not available 05/07/2024 17:21:26 Follow-up Appointme nt(s) Attends referral and/or follow-up appointment(s) as per care team recommendation (s) improving active 2023 Charlene Jose RN Information not available 09/04/2024 14:50:07 Exercise Regularly Follows a regular exercise regimen or instructed exercise plan as per care team recommendation (s). Please consult with your embedded engineer, assistant professor of life sciences, and Primary Care Provider prior to starting any exercise program. improving active 2023 Charlene Jose RN Information not available 02/25/2025 21:37:34 Advance Directive s Review current health care proxy, and update as needed. Please review enclosed MOLST form as a guide in discussing goals of care with your healthcare team and your health care proxy. NoChange active 2023 Charlene Jose RN Information not available 05/07/2024 17:38:35 Health Concerns Section Related Observation LastModified by Organization Detai ls LastModified Time None Recorded Concern Status LastModified by Organization Details LastModified Time Chronic kidney disease stage 4 Active Charlene Jose RN Not Available 11/21/2024 22:01:36 Blood coagulation disorder Active Charlene Jose RN Not Available 05/07/2024 17:15:30 Diabetic on insulin Active Charlene grajeda RN Not Available 11/21/2024 22:01:36 Advance Directives Directive None Recorded Payers Insurance Date Sequence Insurance Name Policy Number Policy Christopher Covered Member ID Christopher Member ID Guarantor Name 04/07/2025 2 [place] [facility]) Yanely Vera [id number] Yanely Bustamantealoshefali 04/03/2025 1 [facility] HE[facility] NET PLAN (MEDICAID HMO) [id number] Yanely Vera [id number] Yanely Vera 03/25/2013 2 UNSPECIFIED REMIT PAYOR Yanely Bustamantealoshefali 04/03/2025 1 [place] [facility] PLAN Yanely Bustamantealone [id number] Yanely Bustamantealone 04/03/2025 1 [place] [employer] Yanely Escobarne [id number] Yanely Bustamantealone 02/19/2013 1 *SELF PAY* Ca juanjose Bustamantealone 04/03/2025 1 [place] [employer] Yanely Bustamantealone [id number] Yanely Wang Avalone 04/03/2025 2 [place] [facility] Yanely Wang Avalone [id number] Yanely Vera Notes Date Note Type Note Provider Name and Address Organization Details Recorded Time text/html Patient presents for medical management of hypertension, hyperlipidemia and diabetes. History of Present IllnessThe patient, with a history of end-stage renal disease on dialysis, presents for a routine follow-up. She reports recent changes in her dialysis regimen and medications due to poorly controlled blood pressure and fluid retention. The dialysis clinic recently doubled one of her antihypertensive medications and added an exchange to her nightly dialysis treatment. Despite these changes, the patient continues to struggle with fluid retention.The patient also mentions the need for a mammogram, as she is due for her annual screening and must stay up-to-date with preventative care due to being on the transplant list. She also notes that she may be overdue for an annual eye exam, which she typically schedules towards the end of the year.The patient reports that her appetite has been poor, but she continues to eat. She was recently advised to increase her protein intake and reintroduce potassium into her diet, as her levels have been trending down due to dialysis. She also mentions that she is out of her Protonix (pantoprazole) medication, which she takes for gastroesophageal reflux disease (GERD).Medications- Losartan- NexiumPhysical ExamVITALS: BP- 130/76 Catrina Nichols, DO [address] [place] [address], [phone], [facility] 11/13/2024 15:03:47 5 text/html here for physical exam History of Present IllnessThe patient, who is on dialysis, has been experiencing fluctuations in blood pressure. The patient reports that the blood pressure has been running low recently, with readings as low as 90/60. The patient has been in communication with the dialysis clinic about these changes, and adjustments are being made to the dialysis regimen to address this issue. The patient also mentions that she has been feeling more tired recently, which she attributes to the low blood pressure.The patient also mentions that she has applied to a radiology program and requires a physical examination for the application. The patient has recently had a yearly check-up with Dr. Schmidt, including a breast exam, and a mammogram is scheduled for the near future.The patient also mentions having a thyroid issue, with the hormone levels being too high. This was discovered in a recent lab test ordered by the patient's OBGYN. The patient is awaiting further instructions on how to adjust her medication to address this issue.Medications- Losartan 100 mg- Epogen shots- Iron infusions- Dextrose Catrina Nichols, DO [address] [place] [address], [place], [phone], [facility] 12/09/2024 14:19:57 5 text/html CC: Patient reports having a lot of muscle & back pain. Doesn't know if it's dialysis related, autoimmune or something else. History of Present Makeyid86 yo F with past medical history of ESRD on CCPD nightly presenting with reported upper thigh cramping and pain along with low back pain. She reports falling out of bed 2-3 weeks ago.Muscle soreness and weakness are significant, especially in the legs and back, with a sensation of bruising upon pressure. Back pain is severe, hindering ambulation on flat surfaces. A fall from bed two weeks ago resulted in a shoulder bruise, now mostly resolved. Current muscle pain differs from past cramping associated with dehydration during dialysis.Blood pressure is consistently low, with recent readings in the 90s/70s and a recent 92/90. Despite medication adjustments, hypotension persists. They have increased salt and fluid intake, including broth and bananas, deviating from previous dietary restrictions. No IV fluids have been administered.Chronic kidney disease, possibly due to lupus or diabetes, necessitates peritoneal dialysis. A kidney biopsy was inconclusive. They have not experienced infections or complications with PD and continue to produce urine, using the lowest dextrose concentration for PD. A high-protein diet is advised due to low albumin levels, and they are increasing protein intake through diet and supplements.There is occasional nausea without significant appetite changes. No alterations in stool consistency or frequency. Edema is present, with slight swelling noted today, preventing ring wear. NICKI DAWSON, DO [address] [place] [address], [place], [phone], [facility] 01/19/2025 13:22:52 5 text/html here with foot concernright footsplit in skinstarting to get sore and redwants to avoid cellulitis and hospitalizationput some antibiotic cream on this morningstarted as a crack, then skin toreno fever or chillsno new fatigue/malaisefeels a bit warm, thinks some red streakingshe has had cellulitis in the paststates DM control has been good latelyno CGM, doesn't check blood sugars routinelysees Dr Shoemaker dialysis team and they check A1C, usually in the five range [place] healingworking w PT for some right hip issues since fall Natasha George MD [address] [place] [address], [phone], [facility] 02/11/2025 13:33:03 text/html Risk Assessment and Lifestyle Change Counseling (Medicare)Reported bypatient.Safety Risk Assessment:No grab bars in bathroom; Has rails on steps; No falls; No evidence of abuse/neglect Functional Status:Patient does not have trouble hearing the television or radio when others do not.; Patient does not have to strain or struggle to hear/understand conversations; Patient does not need help with preparing meals, transportation, shopping, taking medicine, managing finances, or other activities of daily living.; Patient does not have visual loss that interferes with daily activities;Lives alone; Patient was not unsteady and did not take longer than 30 seconds during the timed get up and go test.; Patient reports no falls in the past 6 months.Risk Assessment and Lifestyle Change Counseling 18-50Reported bypatient.Coronary Artery Disease Risk Assesment:No Family history of coronary artery disease;Personal history of diabetes;History of peripheral vascular disease, AAA, or carotid disease Breast Cancer Risk Assessment:No family history of breast cancer; No history of breast cancer or dcis Lung Cancer Risk Assessment:Never smoked Cognitive/Behavioral Risk Assessment:Personal history of mental illness;Family history of mental illness Safety Risk Assessment:No evidence of abuse/neglect Diet:Counseled about decreasing carbohydrates; Counseled about decreasing salt in diet Exercise counseling:Discussed the importance of daily physical activity; Discussed the importance of weight bearing exercise Safety:Counseled about protecting skin from the sun and lowering the risk of skin cancer; Counseled about avoiding excessive and unsafe alcohol intake; Counseled about use of helmets for high velocity activiities; Counseled about home safety including use of smoke detectors, CO detectors, keeping home water temperature less than 120; Counseled about use of seat belts; An audit alcohol screening was performed and scored. Patient was asked about alcohol use. Advised about risks of alcohol and personal risk was assessed. Patient agreed to plan and given information about available resources if needed. Discussion including screening and scoring greater than 7.5 minutes.Social DeterminantsReported bypatient.Living situationno concerns History of Present IllnessThe patient presents for a Medicare visit and requires a signed physical for radiology.Dialysis is stable, though they experience occasional low blood pressure and fatigue. Fluid intake is insufficient. Labs show elevated phosphorus due to missed phosphorus binders and low protein intake. They receive Myrcera and iron at the dialysis center, with monthly labs for the transplant team.Heartburn has increased, and they need pantoprazole refills. They are unsure of their GI doctor's current practice location.Gabapentin is taken for neuropathy, usually 800 mg at night, sometimes increased to two tablets if symptoms worsen. They have reduced from three tablets due to dosage concerns.Mild depression is well controlled, attributed to health stress. Sleep is disrupted, possibly due to back pain, with ongoing physical therapy. They report weakness in their 'good hip', under investigation starting with the spine.Medications- Phosphorus binder- Multivitamin- Gabapentin- Morphine 800 mg 1 tablet Catrina Nichols, DO [address] [place] [address], [place], [phone], [facility] 04/03/2025 15:16:42 OBGyn Episode No OBEpisode recorded.
== END 2025-05-19 10:04 | disposition home or self-care (01) ==
LOC: HO.NEURO 10:03
PROVIDERS: PCP Family Medicine
DX: Z76.89 Persons encountering health services in other specified circumstances (principal); Z13.39 Encounter for screening examination for other mental health and behavioral disorders
CPT/HCPCS: 80307